=== PATIENT | female | born 1970 | race Two or more races ===

== ENCOUNTER 2025-03-29 03:24 | Inpatient (IN) | payer MEDICAID, SELFPAY ==
[2025-03-29] VITALS (15 sets, daily range): BP systolic 91–165; BP diastolic 59–97; PULSE 68–119; RESP 14–98; TEMP 36.4–38.7; O2SAT 91–98; BMI 63.6; BMI 45.8
--- NOTE | 2025-03-29 03:46 | EKG_ITS ---
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
--- NOTE | 2025-03-29 03:51 | XR_ITS ---
Examination: AP chest single view TECHNIQUE: AP portable semiupright chest single view Date and time: March 29, 2025, 0403 hours INDICATIONS: Sepsis alert and chest of chest pain FINDINGS: Right lower lobe pneumonia Normal heart size. Left lung clear IMPRESSION: Right lower lobe pneumonia
--- NOTE | 2025-03-29 03:54 | PD.EDADULT ---
ED General RME/HPI General Chief complaint: Chest Pain Stated complaint: chest pain Time Seen by Provider: 03/29/25 03:30 Arrival date/time: 03/29/25 03:24 Related Data Home Medications ?Medication ?Instructions ?Recorded ?Confirmed lisinopril 20 mg tablet 20 mg PO BID #0 tabs 03/17/15 04/03/19 aspirin 81 mg tablet,delayed 81 mg PO QDAY ##0 04/17/16 04/03/19 release (Aspir-) metformin 500 mg tablet 250 mg PO HS #0 tabs 04/17/16 04/03/19 (Glucophage) allopurinol 100 mg tablet 200 mg PO QDAY #0 tabs 08/12/16 04/03/19 (Zyloprim) imatinib 400 mg tablet (Gleevec) 400 mg PO QDAY #0 tabs 08/12/16 04/03/19 metoprolol tartrate 50 mg tablet 50 mg PO DAILY #0 tabs 08/12/16 04/03/19 ondansetron 4 mg disintegrating 4 mg PO Q8H PRN Nausea 04/02/19 04/03/19 tablet Previous Rx's ?Medication ?Instructions ?Recorded ibuprofen 600 mg tablet 600 mg PO Q6H #30 tabs 04/03/19 hydrocodone 5 mg-acetaminophen 325 1 tab PO Q6H PRN pain #7 tabs 12/21/ mg tablet Allergies Allergy/AdvReac Type Severity Reaction Status Date / Time curry peppers Allergy Mild rash to Uncoded 03/29/25 03:28 mouth Review of Systems Review of Systems Systems Reviewed: All systems reviewed, normal except as documented ED Exam Narrative Physical exam: Physical Exam GENERAL: NAD, AAOx3 HEENT: Moist mucosa. Eyes open, symmetrical, & clear CARDIO: Heart RRR, no obvious murmurs PULM: dyspnea, decreased BS on the right GI: Abdomen soft, nondistended, no pain on palpation. BSx4 SKIN/MSK/EXT: No wounds/rashes/edema/amputations, no pain on palpation. Pedal pulses present B/L NEURO: AAOx3, no focal neuro deficits, able to move all 4 extremities Course Quality Measures none Orders Category Date Time Status Bedside COVID-19 Antigen Test NOW Care 03/29/25 04:25 Active Bedside Influenza A&B Antigen Test NOW Care 03/29/25 04:25 Active Medical Insurance Collector STAT Care 03/29/25 03:49 Active Continuous Pulse Oximetry STAT Care 03/29/25 03:49 Completed EKG (ED ONLY) *Do not use* NOW Care 03/29/25 03:46 Completed Insert IV NOW Care 03/29/25 03:47 Active NPO STAT Care 03/29/25 03:49 Active Strict Intake and Output Routine Care 03/29/25 03:49 Ordered EKG (ED Only) Stat Exams 03/29/25 03:46 Draft XR chest 1V SEPSIS PROTOCOL Stat Exams 03/29/25 03:51 Taken B-Type Natriuretic Peptide Stat Lab 03/29/25 04:05 Completed Blood Culture (Lab) Stat Lab 03/29/25 03:49 Ordered CBC Stat Lab 03/29/25 04:05 Completed CRP [C-Reactive Protein] Stat Lab 03/29/25 04:24 Ordered Comprehensive Metabolic Panel Stat Lab 03/29/25 04:05 Completed Drug Screen,Urine Stat Lab 03/29/25 03:51 Ordered LDH (Lactate Dehydrogenase) Stat Lab 03/29/25 04:05 Completed Lactate (Lactic Acid) Stat Lab 03/29/25 04:05 Completed Lipase Stat Lab 03/29/25 04:05 Completed Magnesium Stat Lab 03/29/25 04:05 Completed Partial Thromboplastin Time Stat Lab 03/29/25 03:49 Ordered Phosphorous Stat Lab 03/29/25 04:05 Completed Procalcitonin Stat Lab 03/29/25 04:05 Completed Prothrombin Time with INR Stat Lab 03/29/25 03:49 Ordered RSV [Respiratory Syncytial Virus Ag] Stat Lab 03/29/25 04:25 Ordered Sed Rate (ESR) Stat Lab 03/29/25 04:05 Completed Strep A Rapid Stat Lab 03/29/25 04:25 Ordered Troponin I Stat Lab 03/29/25 04:05 Completed Urinalysis Stat Lab 03/29/25 03:49 Ordered Urine Culture Stat Lab 03/29/25 03:49 Ordered ACETAMINOPHEN w/COD 300-30 [Tylenol w/Cod #3] Med 03/29/25 04:23 Discontinued 2 tab PO X1 ONE Ketorolac Inj [Toradol Inj] Med 03/29/25 04:23 Discontinued 30 mg IVP X1 ONE Ondansetron Inj [Zofran Inj] Med 03/29/25 03:49 Active 4 mg IVP Q6HR PRN Ondansetron Inj [Zofran Inj] Med 03/29/25 04:23 Discontinued 4 mg IVP X1 ONE Piper/Tazo 3.375 gm Premix [Zosyn] Med 03/29/25 03:49 Discontinued 3.375 gm in 50 ml IV X1 Ringers Lactated 1000 ml [Lactated Ringers] 1,641 ml Med 03/29/25 03:49 Active IV 1,641 mls/hr Vancomycin Inj 2,000 mg Med 03/29/25 04:15 Active Sodium Chloride 0.9% 500 ml [Ns] 500 ml IV X1 Vancomycin Pharmacy to Dose Med 03/29/25 09:00 Pending 1 each IV QDAY Oxygen Delivery NOW RT 03/29/25 03:49 Active Vital Signs Vital signs: Vital Signs Temperature 101.7 F H 03/29/25 03:36 Pulse Rate 119 H 03/29/25 03:36 Respiratory Rate 18 03/29/25 03:36 Blood Pressure 138/81 H 03/29/25 03:36 Pulse Oximetry (%) 96 03/29/25 03:36 Oxygen Delivery Method Room Air 03/29/25 03:36 Discharge Plan Plan Patient Disposition: Admit Acute Care w/in Hospital Prescriptions/Referrals Prescriptions/Med Rec: No Action lisinopril 20 MG tablet 20 mg PO BID Qty: 0 metformin [Glucophage] 500 MG tablet 250 mg PO HS Qty: 0 aspirin [Aspir-81] 81 mg Tablet,Delayed Release (Dr/Ec) 81 mg PO QDAY Qty: 0 allopurinol [Zyloprim] 100 MG tablet 200 mg PO QDAY Qty: 0 imatinib [Gleevec] 400 MG tablet 400 mg PO QDAY Qty: 0 metoprolol tartrate 50 MG tablet 50 mg PO DAILY Qty: 0 ondansetron 4 mg Tablet,Disintegrating 4 mg PO Q8H PRN (Reason: Nausea) ibuprofen 600 mg tablet 600 mg PO Q6H Qty: 30 0RF hydrocodone-acetaminophen 5-325 mg tablet 1 tab PO Q6H MDD 3 PRN (Reason: pain) Qty: 7 0RF Referrals: Maricel Littlejohn PA-C [Primary Care Provider] - In 1 week Problem List Clinical Impression: Pneumonia, Sepsis Patient/Caregiver Discharge Instructions Print Language: Italian Stand Alone Forms: Shira Award Info., Patient Portal Info Letter MDM Narrative MDM hospital course: 54 y/o F with PMHx of HTN, pre-diabetes, CML on chemotherapy seen by Dr. Brock who presented to the ED due to chest pain. Patient states pain started around saturday but has progressively gotten worse. She describes the pain as 7-8/10 non radiating worsening when laying down and when taking deep breaths. She also endorses fevers and chills at home as well as diaphoresis. 0342: Sepsis Alert called, protocol initiated 0440: Labs reviewed: Leukocytoasis, RUDDY 0441: Spoke to IM team will accept the patient. Clinical Information Provided by patient Medical Records Reviewed None Medication Administration(s) Medication Administration History Lactated Ringer's (Lactated Ringers) 1,641 mls @ 1,641 mls/hr 30 ml/kg infuse over 60 min (1641 ml) IV .Q1H ONE Stop: 03/29/25 04:48 Vancomycin HCl 2,000 mg/ (Sodium Chloride) 500 mls @ 150 mls/hr IV X1 ONE Stop: 03/29/25 07:34 Ondansetron HCl (Ondansetron Inj 2 Mg/Ml Inj 2 Ml) 4 mg IVP Q6HR PRN PRN Reason: NAUSEA OR VOMITING Stop: 04/28/25 03:48 Pharmacy Consult (Vancomycin Pharmacy To Dose 1 Each Each) 1 each IV QDAY SUAD Stop: 04/28/25 08:59 Discontinued Medications Acetaminophen/Codeine Phosphate (Acetaminophen W/Cod 300-30 Tablet) 2 tab PO X1 ONE Stop: 03/29/25 04:24 Piperacillin/Tazobactam/Dextrose (Zosyn) 3.375 gm in 50 mls @ 100 mls/hr IV X1 ONE Stop: 03/29/25 04:18 Ketorolac Tromethamine (Ketorolac Inj 30 Mg/Ml Vial) 30 mg IVP X1 ONE Stop: 03/29/25 04:24 Ondansetron HCl (Ondansetron Inj 2 Mg/Ml Inj 2 Ml) 4 mg IVP X1 ONE; Protocol Stop: 03/29/25 04:24
[2025-03-29 04:09] LABS: Lactate (Lactic Acid) 1.0 mMol/L (0.4-2.0)
[2025-03-29 04:17] LABS: Basophils # (Auto) 0.1 Thou/mm3 (0.0-0.2); Basophils % (Auto) 0 % (0-2.5); Eosinophils # (Auto) 0.2 Thou/mm3 (0.0-0.5); Eosinophils % (Auto) 2 % (0-10); Hematocrit 31.9 % (36.0-46.0); Hemoglobin 10.8 g/dL (12.0-16.0); Immature Granulocytes Auto 0.07 Thou/mm3 (0.00-0.00); Lymphocytes # (Auto) 1.7 Thou/mm3 (1.0-4.8); Lymphocytes % (Auto) 14 % (10-50); Mean Corpuscular HGB Conc 33.9 g/dl (31.0-37.0); Mean Corpuscular Hemoglobin 31.0 pg (25.0-35.0); Mean Corpuscular Volume 92 fL (80-100); Monocytes # (Auto) 1.1 Thou/mm3 (0.0-0.8); Monocytes % (Auto) 9 % (0-12); Neutrophils # (Auto) 9.5 Thou/mm3 (1.8-7.7); Neutrophils % (Auto) 75 % (37-80); Nucleated Red Blood Cell # 0.00 Thou/mm3 (0.00-0.00); Nucleated Red Blood Cell % 0 /100 WBC (0); Platelet Count 225 Thou/mm3 (140-440); RDW Standard Deviation 46.7 fL (36.4-46.3); Red Blood Count 3.48 Miln/mm3 (4.00-5.20); White Blood Count 12.7 Thou/mm3 (3.6-11.0)
[2025-03-29 04:32] LABS: B-Type Natriuretic Peptide 36 pg/mL (0-100)
[2025-03-29 04:36] LABS: Sed Rate (ESR) 76 mm/hr (0-30)
[2025-03-29 04:39] LABS: Alanine Aminotransferase 18 U/L (10-49); Albumin, Serum 4.2 gm/dL (3.5-5.0); Albumin/Globulin Ratio 1.4 (1.2-2.2); Alkaline Phosphatase 104 U/L (46-116); Anion Gap 11 (7-16); Aspartate Amino Transferase 31 U/L (0-34); BUN/Creatinine Ratio 7 Ratio (12-20); Bilirubin,Total 1.0 mg/dL (0.3-1.2); Blood Urea Nitrogen 10 mg/dL (9-23); Calcium 9.0 mg/dL (8.3-10.6); Calcium (Corrected) 9.0 mg/dL (8.5-10.1); Carbon Dioxide 20.6 mMol/L (20.0-31.0); Chloride 106 mMol/L (98-107); Creatinine (Component) 1.4 mg/dL (0.6-1.3); Estimated Creatinine Clearance 72.5 mL/min (>60); Globulin 3.1 gm/dL (2.3-3.5); Glucose 141 mg/dL (74-106); LDH (Lactate Dehydrogenase) 339 U/L (120-246); Lipase 54 U/L (12-53); Magnesium 1.9 mg/dL (1.6-2.6); Osmolality,Calculated 276 (275-295); Phosphorous 2.1 mg/dL (2.4-5.1); Potassium 4.5 mMol/L (3.4-5.1); Sodium 138 mMol/L (136-145); Total Protein 7.3 gm/dL (5.7-8.2); Troponin I < 0.020 ng/mL (0.0-0.045); eGFR 45 See Note
--- NOTE | 2025-03-29 04:39 | PC.NURSE ---
IN AND OUT CATH NOT NEEDED PT ABLE TO URINATE ON OWN
[2025-03-29 04:40] LABS: Procalcitonin 0.04 ng/ml (0.0-0.49)
[2025-03-29] MEDS: ACETAMINOPHEN w/COD 300-30 TABLET 2 TAB PO (04:47)
[2025-03-29] MEDS: ONDANSETRON INJ 2 MG/ML INJ 2 ML 4 MG IVP ×2 (04:47→16:16)
[2025-03-29 04:48] LABS: Collection Type, Urine Clean Catch
[2025-03-29] MEDS: KETOROLAC INJ 30 MG/ML VIAL IVP (04:48)
[2025-03-29] MEDS: PIPER/TAZO 3.375 GM PREMIX 3.375 GM/50 ML BAG IV (04:48)
[2025-03-29] MEDS: RINGERS LACTATED 1000 ML 1,641 ML 1641 ML IV (04:49)
[2025-03-29 04:52] LABS: Bacteria,Urine Rare; Bilirubin,Urine Negative (Negative); Blood,Urine Negative (Negative); Clarity,Urine Clear (Clear/Hazy); Color,Urine Lt-Yellow (Lt Yel-Yel); Glucose, Urine Negative (Negative); Ketones,Urine Trace (Negative); Leukocyte Esterase,Urine Negative (Negative); Nitrite,Urine Negative (Negative); PH,Urine 6.0 (5.0-7.0); Protein,Urine Trace (Neg - Trace); RBC,Urine 3 /hpf (0-3); Specific Gravity,Urine 1.016 (1.001-1.035); Squamous Epithelial Cell,Urine 3 /hpf (0-5); Urobilinogen,Urine Negative mg/dL (0.0-1.0); WBC,Urine 1 /hpf (0-5)
[2025-03-29 04:58] LABS: Amphetamine/Methamp Scrn,U Negative (Negative); Barbiturate Screen,Urine Negative (Negative); Benzodiazepines Screen,Urine Negative (Negative); Benzoylecgonine Screen, Ur Negative (Negative); Fentanyl Screen,Urine Negative (Negative); Opiate Screen,Urine Negative (Negative); THC Screen,Urine Negative (Negative)
[2025-03-29 05:03] LABS: INR 1.0 (0.9-1.3); Partial Thromboplastin Time 29.6 Seconds (22.0-36.0); Prothrombin Time 10.7 Seconds (9.0-12.2)
--- NOTE | 2025-03-29 05:09 | PD.RESHP ---
Documentation for date of: 03/29/25 HPI History of Present Illness Chief complaint: Chest pain History of present illness: 54-year-old female with past medical history of CML diagnosed in 2013, followed by Dr. Brock, hypertension, nni-myumffl-hufgspodw type 2 diabetes presenting to the ED on 03/29 with chest pain which has been ongoing since Tuesday 03/27. Patient denies having any sick contacts and states that the chest pain is like a substernal pressure-like sensation which does not radiate anywhere and is worsened with deep inspiration. Patient has also been having poor p.o. intake secondary to suppressed appetite. Patient continues to be on daily imatinib 400 mg for CML which appears to be well-controlled; moreover, she had an appointment in February to follow-up in March scheduled. Patient's daughter is bedside and corroborated her story. Medical history: As stated above Surgical history: Denies Allergies: Curry peppers causes rash Medications: Pending official med rec Family history: Noncontributory Social history: Patient does not work currently, took some classes at [employer], lives at home with , 2 daughters, denies tobacco or illicit drug use, social alcohol use ROS: All 12 systems assessed and the patient denies unless otherwise stated in HPI In the ED, patient presented hypertensive 138/81, tachycardic 119, respiratory 18, febrile 101.7 but satting 96 on room air. Pertinent lab findings include a WBC of 12.7, hemoglobin 10.8 with MCV of 92, ESR 76, creatinine 1.4, BUN 10, lactic acid 1.0, phosphorus 2.1, magnesium 1.9, LDH 339, troponin less than 0.030, BNP of 36, lipase 54. Urinalysis shows no signs of infection and U tox is negative. Chest x-ray is pending read but there appears to be a right-sided pneumonia, EKG shows sinus tachycardia without any concerning ST changes. Patient will be admitted for community-acquired pneumonia, treated with IV antibiotics. Exam Vital Signs Temp Pulse Resp BP Pulse Ox O2 Del Method 101.7 F H 110 H 23 H 138/81 H 96 Room Air 03/29/25 03:36 03/29/25 04:04 03/29/25 04:04 03/29/25 03:36 03/29/25 03:36 03/29/25 03:36 Narrative Exam Physical Exam: GENERAL: Awake, answering questions appropriately, obese HEENT: NC/AT. Moist mucosa. PERRLA/EOMI. CARDIO: Heart RRR, no obvious murmurs, no JVD. PULM: No coughing or visible SOB. Lungs CTA B/L. GI: Abdomen soft, NT/ND, +BS. SKIN/MSK/EXT: No wounds/discoloration/rashes/edema/amputations noted. +Pedal pulses present B/L. NEURO: Oriented x3, Moves extremities x4, no focal neurologic deficits Results: Labs 03/29/25 04:05 03/29/25 04:05 Labs: Short CBC 03/29/25 Range/Units 04:05 WBC 12.7 H (3.6-11.0) Thou/mm3 Hgb 10.8 L (12.0-16.0) g/dL Hct 31.9 L (36.0-46.0) % Plt Count 225 (140-440) Thou/mm3 BMP 03/29/25 04:05 Sodium 138 Potassium 4.5 Chloride 106 Carbon Dioxide 20.6 BUN 10 Creatinine 1.4 H Glucose 141 H Calcium 9.0 Cardiac Enzymes 03/29/25 Range/Units 04:05 Troponin I < 0.020 (0.0-0.045) ng/mL Liver Function 03/29/25 Range/Units 04:05 Total Bilirubin 1.0 (0.3-1.2) mg/dL AST 31 (0-34) U/L ALT 18 (10-49) U/L Alkaline Phosphatase 104 (46-116) U/L Albumin 4.2 (3.5-5.0) gm/dL Urine 03/29/25 Range/Units 04:22 Urine Color Lt-Yellow (Lt Yel-Yel) Urine Clarity Clear (Clear/Hazy) Urine pH 6.0 (5.0-7.0) Ur Specific [place] 1.016 (1.001-1.035) Urine Protein Trace (Neg - Trace) Urine Glucose (UA) Negative (Negative) Quality Measures Quality Measures none Medications Home Medications and Allergies Home Medications ?Medication ?Instructions ?Recorded ?Confirmed ?Type lisinopril 20 mg tablet 20 mg PO BID #0 tabs 03/17/15 04/03/19 History aspirin 81 mg tablet,delayed 81 mg PO QDAY ##0 04/17/16 04/03/19 History release (Aspir-) metformin 500 mg tablet 250 mg PO HS #0 tabs 04/17/16 04/03/19 History (Glucophage) allopurinol 100 mg tablet 200 mg PO QDAY #0 tabs 08/12/16 04/03/19 History (Zyloprim) imatinib 400 mg tablet (Gleevec) 400 mg PO QDAY #0 tabs 08/12/16 04/03/19 History metoprolol tartrate 50 mg tablet 50 mg PO DAILY #0 tabs 08/12/16 04/03/19 History ondansetron 4 mg disintegrating 4 mg PO Q8H PRN Nausea 04/02/19 04/03/19 History tablet Allergies Allergy/AdvReac Type Severity Reaction Status Date / Time curry peppers Allergy Mild rash to Uncoded 03/29/25 03:28 mouth Visit Medications Acetaminophen (Acetaminophen 325 Mg Tablet) 650 mg PO Q6H PRN PRN Reason: Pain 1-3 and/or Fever >100.1 Stop: 04/28/25 05:00 Hydrocodone Bitart/Acetaminophen (Hydrocodone/Apap 10/325 Tab) 1 tab PO Q4H PRN PRN Reason: PAIN SCALE 4-6 (Moderate Stop: 04/03/25 05:00 Heparin Sodium (Porcine) (Heparin Sod Inj 5000 Unit/Ml Vial) 5,000 unit SC Q12HR [facility] Stop: 04/12/25 08:59 Vancomycin HCl 2,000 mg/ (Sodium Chloride) 500 mls @ 150 mls/hr IV X1 ONE Stop: 03/29/25 07:34 Sodium Chloride (Ns) 500 mls @ 75 mls/hr IV .Q6H40M ONE Stop: 03/29/25 11:44 Imatinib Mesylate (Imatinib Mesylate 100 Mg Tablet) 400 mg PO QDAY [facility] Stop: 04/28/25 08:59 Morphine Sulfate (Morphine Sulf Inj 10 Mg/Ml Vial) 2 mg IVP Q4H PRN PRN Reason: PAIN SCALE 7-10 (Severe Stop: 04/03/25 05:00 Ondansetron HCl (Ondansetron Inj 2 Mg/Ml Inj 2 Ml) 4 mg IVP Q6HR PRN PRN Reason: NAUSEA OR VOMITING Stop: 04/28/25 03:48 Pharmacy Consult (Vancomycin Pharmacy To Dose 1 Each Each) 1 each IV QDAY [facility] Stop: 04/28/25 08:59 Discontinued Medications Acetaminophen/Codeine Phosphate (Acetaminophen W/Cod 300-30 Tablet) 2 tab PO X1 ONE Stop: 03/29/25 04:24 Last Admin: 03/29/25 04:47 Dose: 2 tab Lactated Ringer's (Lactated Ringers) 1,641 mls @ 1,641 mls/hr 30 ml/kg infuse over 60 min (1641 ml) IV .Q1H ONE Stop: 03/29/25 04:48 Last Admin: 03/29/25 04:49 Dose: 1,641 mls/hr Piperacillin/Tazobactam/Dextrose (Zosyn) 3.375 gm in 50 mls @ 100 mls/hr IV X1 ONE Stop: 03/29/25 04:18 Last Admin: 03/29/25 04:48 Dose: 100 mls/hr Ketorolac Tromethamine (Ketorolac Inj 30 Mg/Ml Vial) 30 mg IVP X1 ONE Stop: 03/29/25 04:24 Last Admin: 03/29/25 04:48 Dose: 30 mg Ondansetron HCl (Ondansetron Inj 2 Mg/Ml Inj 2 Ml) 4 mg IVP X1 ONE; Protocol Stop: 03/29/25 04:24 Last Admin: 03/29/25 04:47 Dose: 4 mg Potassium Phos/Sodium Phos (Naph,[facility] Mbdb 1 Packet (1.5 Gm)) 1 packet PO X1 ONE Stop: 03/29/25 05:08 Assessment & Plan Plan 54-year-old female with past medical history of CML diagnosed in 2013, followed by Dr. Brock, hypertension, ugn-sudesgy-qluilcill type 2 diabetes presenting to the ED on 03/29 with chest pain will be admitted for community-acquired pneumonia, treated with IV antibiotics. Sepsis due to [] with acute sepsis-related organ dysfunction as evidence by below and RUDDY (endorgan dysfunction). #Sepsis secondary to #Community-acquired pneumonia As per HPI, patient presenting with 2 days of chest pain likely pleuritic On examination, patient has clear lung sounds but present with serous bacteria (tachycardia, febrile, tachypnea) Pertinent findings include WBC 12.7 Chest x-ray shows right-sided pneumonia COVID and influenza negative Plan: Continue IV Zosyn 4.5 g Q6 Blood cultures pending Consider obtaining sputum cultures Pending RSV #RUDDY Presenting with creatinine of 1.4 and BUN of 10, EGFR of 45 Likely secondary to poor p.o. intake and acutely ill status Plan: Maintenance IV fluid with normal saline at 75 cc an hour 500 cc bag Avoid nephrotoxic agent Renally dose medications when appropriate Follow-up in morning labs community-acquired pneumonia #CML As noted above, patient was diagnosed in [address] Brock Has an appointment in March Plan: Continue patient's imatinib for 400 mg p.o. daily #Hypertension #Spp-hdyukhx-xjljnliva type 2 diabetes Chronic medical conditions Pending official med rec Plan: Restart home antihypertensives when appropriate Sliding scale insulin Health Maintenance: Lines: Line Diet: Cardiac Bowel: Senna prn GI prophylaxis: Not needed DVT prophylaxis: Heparin subcu Dispo: IV antibiotics for And maintenance IV fluids for RUDDY Code: Full Patient seen and examined with attending Dr. Isabella Duckworth, DO PGY-2 Internal Medicine - GME Attending Provider Attestation/Addendum I have examined the patient, reviewed labs and imaging findings, discussed the case with the resident(s), and reviewed entered orders. I agree with the plan of care as outlined in this note, with these additional summaries/recommendations: After examination of the patient and review of the clinical data, I feel that this patient needs admission to the hospital for further treatment and evaluation. Patient is a 54-year-old female with a medical history of morbid obesity, diabetes mellitus type 2, primary hypertension, and CML followed by Dr. Brock presents to [facility] emergency department on 03/29/2025 with chest pain, cough, and fever/chills. Patient diagnosed with sepsis most likely secondary to bacterial pneumonia. qSOFA 0 points indicating not high risk for inpatient mortality. 3 out of 4 SIRS criteria positive with body temp greater than 38 ?C, heart rate greater than 90, and WBC count greater than 12. Labs notable for WBC 12.7 with CXR showing infiltrate. Evidence of endorgan damage with acute kidney injury. Patient meets criteria for sepsis with most likely source pulmonary. Daily CBC, follow-up blood cultures plus urine culture. COVID and flu negative. Start IV antibiotics to include coverage for Pseudomonas. Status post 30 cc/kg fluid resuscitation. No need for pressors or source control at this time. Acute kidney injury present with creatinine 1.4 and BUN 10 on admission. Most likely secondary to prerenal azotemia in the setting of sepsis. Continue IV fluids, avoid nephrotoxic agents, and renally dose medications. Repeat level in AM. Mild hypophosphatemia repeat phosphorus in AM. Patient has CML and currently following Dr. Brock. Patient is on daily Gleevec which we will continue as CML appears well-controlled. If patient becomes leukopenic/neutropenic then recommend holding Gleevec and obtaining oncology consultation. Resume home antihypertensives as tolerated. Tylenol as needed for fever. Patient and daughter updated on the plan and in agreement. All questions answered to satisfaction. Please see residents note for additional details and management. Dr. Isabella MD
[2025-03-29] MEDS: Vancomycin Inj 2,000 MG in SODIUM CHLORIDE 0.9% 500 ML 500 ML 150 MG IV (05:52)
[2025-03-29] MEDS: SODIUM CHLORIDE 0.9% 500 ML 500 ML 75 ML IV (06:16)
[2025-03-29] MEDS: Magnesium Sulfate 4 GM Ivpb 4 GM/50 ML BAG IV (06:16)
[2025-03-29 07:03] LABS: Respiratory Syncytial Virus Ag Negative (Negative); Strep A Rapid Negative (Negative)
--- NOTE | 2025-03-29 07:37 | PC.NURSE ---
Received report from Maria Fernanda JOLLEY and assumed care of patient. Patient laying in bed with daughter at bedside. States having intermittent chest spasms 05/02. Awaiting admission bed.
[2025-03-29 07:43] LABS: C-Reactive Protein 8.7 mg/dL (0.0-0.9)
[2025-03-29] MEDS: MORPHINE SULF INJ 10 MG/ML VIAL 2 MG IVP ×3 (07:58→16:10)
[2025-03-29] MEDS: NAPH,KPH MBDB 1 PACKET (1.5 GM) PO (08:45)
[2025-03-29] MEDS: HEPARIN SOD INJ 5000 UNIT/ML VIAL SC ×2 (12:54→22:00)
[2025-03-29] MEDS: ACETAMINOPHEN 325 MG TABLET 650 MG PO (16:17)
--- NOTE | 2025-03-29 17:11 | ESPR_ITS ---
Documentation for date of: 03/29/25 Subjective Subjective Interval history: No acute events overnight pt admitted by night team for right lower lobe PNA pt satting well on RA Exam Vital Signs Temp Pulse Resp BP Pulse Ox O2 Del Method 100.7 F H 104 H 20 165/96 H 95 Room Air 03/29/25 16:33 03/29/25 16:33 03/29/25 16:33 03/29/25 16:33 03/29/25 16:33 03/29/25 16:33 Vitals over the past 24hours were reviewed: Temp: Afebrile HR: 100s BP: elevated, 90s-160s/50s-90s: RR: satting well on RA Narrative Exam GENERAL: no acute distress, AAO x3,sitting up in bed. HEENT: Head AT/ NC. CARDIOVASCULAR: Tachycardic, regular rhythm . Normal S1/S2, No m/r/g. trace edema of bilateral LEs. RESPIRATORY: Right lower lung loaiza, end expiratory wheezing. left lung loaiza clear to auscultation GASTROINTESTINAL: Abdomen soft, non tender no palpable masses. Bowel sounds present, no suprapubic tenderness MUSCULOSKELETAL:? No cyanosis or edema, no visible joint swelling. NEUROLOGICAL: CN II-XII grossly intact. No focal deficits. moving 4 extremities PSYCHIATRIC: Awake and alert, not agitated, normal mood and affect. SKIN: No obvious rashes, no jaundice, normal turgor. Objective Labs 03/30/25 04:54 03/30/25 04:54 Labs: Laboratory Results - last 24 hr 03/29/25 03/29/25 03/29/25 04:05 04:14 04:22 WBC 12.7 H RBC 3.48 L Hgb 10.8 L Hct 31.9 L MCV 92 MCH 31.0 MCHC 33.9 RDW Std Deviation 46.7 H Plt Count 225 Neut % (Auto) 75 Lymph % (Auto) 14 [place] % (Auto) 9 Eos % (Auto) 2 Baso % (Auto) 0 Neut # (Auto) 9.5 H Lymph # (Auto) 1.7 [place] # (Auto) 1.1 H Eos # (Auto) 0.2 Baso # (Auto) 0.1 Immature Gran # (Auto) 0.07 H Absolute Nucleated RBC 0.00 Immature Gran % 1 H Nucleated RBC % 0 ESR 76 H PT 10.7 INR 1.0 APTT 29.6 Sodium 138 Potassium 4.5 Chloride 106 Carbon Dioxide 20.6 Anion Gap 11 BUN 10 Creatinine 1.4 H Estim Creat Clear Calc 72.5 eGFR 45 L BUN/Creatinine Ratio 7 L Glucose 141 H Calculated Osmolality 276 Lactic Acid 1.0 Calcium 9.0 Corrected Calcium 9.0 Phosphorus 2.1 L Magnesium 1.9 Total Bilirubin 1.0 AST 31 ALT 18 Alkaline Phosphatase 104 Lactate Dehydrogenase 339 H Troponin I < 0.020 C-Reactive Prot, Quant 8.7 H B-Natriuretic Peptide 36 Total Protein 7.3 Albumin 4.2 Globulin 3.1 Albumin/Globulin Ratio 1.4 Lipase 54 H Procalcitonin 0.04 Ur Collection Type Clean Catch Urine Color Lt-Yellow Urine Clarity Clear Urine pH 6.0 Ur Specific [place] 1.016 Urine Protein Trace Urine Glucose (UA) Negative Urine Ketones Trace Urine Blood Negative Urine Nitrite Negative Urine Bilirubin Negative Urine Urobilinogen (Auto) Negative Ur Leukocyte Esterase Negative Urine RBC 3 Urine WBC 1 Ur Squamous Epith Cells 3 Urine Bacteria Rare Urine Opiates Screen Negative Urine Fentanyl Screen Negative Ur Barbiturates Screen Negative U Amphetamin/Meth Scrn Negative U Benzodiazepines Scrn Negative U Cocaine Metab Screen Negative U Marijuana (THC) Screen Negative RSV Rapid Group A Strep Rapid 03/29/25 06:15 WBC RBC Hgb Hct MCV MCH MCHC RDW Std Deviation Plt Count Neut % (Auto) Lymph % (Auto) [place] % (Auto) Eos % (Auto) Baso % (Auto) Neut # (Auto) Lymph # (Auto) [place] # (Auto) Eos # (Auto) Baso # (Auto) Immature Gran # (Auto) Absolute Nucleated RBC Immature Gran % Nucleated RBC % ESR PT INR APTT Sodium Potassium Chloride Carbon Dioxide Anion Gap BUN Creatinine Estim Creat Clear Calc eGFR BUN/Creatinine Ratio Glucose Calculated Osmolality Lactic Acid Calcium Corrected Calcium Phosphorus Magnesium Total Bilirubin AST ALT Alkaline Phosphatase Lactate Dehydrogenase Troponin I C-Reactive Prot, Quant B-Natriuretic Peptide Total Protein Albumin Globulin Albumin/Globulin Ratio Lipase Procalcitonin Ur Collection Type Urine Color Urine Clarity Urine pH Ur Specific [place] Urine Protein Urine Glucose (UA) Urine Ketones Urine Blood Urine Nitrite Urine Bilirubin Urine Urobilinogen (Auto) Ur Leukocyte Esterase Urine RBC Urine WBC Ur Squamous Epith Cells Urine Bacteria Urine Opiates Screen Urine Fentanyl Screen Ur Barbiturates Screen U Amphetamin/Meth Scrn U Benzodiazepines Scrn U Cocaine Metab Screen U Marijuana (THC) Screen RSV Rapid Negative Group A Strep Rapid Negative Quality Measures Quality Measures none Assessment & Plan Assessment Current Active Medications: Generic Name Dose Route Start Last Admin Trade Name Freq PRN Reason Stop Dose Admin Acetaminophen 650 mg 03/29/25 05:01 03/29/25 16:17 Acetaminophen 325 Mg Tablet PO 04/28/25 05:00 650 mg Q6H PRN Administration Pain 1-3 and/or Fever >100.1 Hydrocodone Bitart/Acetaminophen 1 tab 03/29/25 05:01 Hydrocodone/Apap 10/325 Tab PO 04/03/25 05:00 Q4H PRN PAIN SCALE 4-6 (Moderate Heparin Sodium (Porcine) 5,000 unit 03/29/25 09:00 03/29/25 12:54 Heparin Sod Inj 5000 Unit/Ml Vial SC 04/12/25 08:59 5,000 unit Q12HR SUAD Administration Levofloxacin 750 mg 03/30/25 09:00 Levofloxacin 250 Mg Tablet PO 04/06/25 08:59 DAILY SUAD Morphine Sulfate 2 mg 03/29/25 05:01 03/29/25 16:10 Morphine Sulf Inj 10 Mg/Ml Vial IVP 04/03/25 05:00 2 mg Q4H PRN Administration PAIN SCALE 7-10 (Severe Ondansetron HCl 4 mg 03/29/25 03:49 03/29/25 16:16 Ondansetron Inj 2 Mg/Ml Inj 2 Ml IVP 04/28/25 03:48 4 mg Q6HR PRN Administration NAUSEA OR VOMITING Pharmacy Consult 1 each 03/29/25 09:00 Vancomycin Pharmacy To Dose 1 Each Each IV 04/28/25 08:59 QDAY PRN consult Plan 54-year-old female with 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 Brock) hypertension, [id number] type 2 diabetes presenting to the ED on 03/29 with chest pain will be admitted for community-acquired pneumonia, continue vanc pending BCx, and transitioned from zosyn to levoflox for atypicals coverage. #Sepsis secondary to #Community-acquired pneumonia #Leukocytosis SIRS Criteria 4 points As per HPI, patient presenting with 2 days of chest pain likely pleuritic On examination,(tachycardia, febrile, tachypnea) Pertinent findings include WBC 12.7. pt with nonproductive cough, no sputum cultures indicated at present Dx - Chest x-ray shows: right-sided pneumonia - Bcx Follow up - Group A Strep negative - RSV negative - COVID and influenza negative Tx - Continue vanc pending Bcx results - START levoflox 750 mg PO qd #RUDDY: evidence of end organ damage Ddx: consider pre vs intra vs post renal, favor prerenal given poor po intake and sepsis Presenting with creatinine of 1.4 (up from 1.1) and BUN of 10, EGFR of 45 Tx - Maintenance IV fluid with LR at 75ml/hr 2 bag max - Avoid nephrotoxic agent - HOLDING home Lisinopril 20 mg BID given current RUDDY and concern for worsening PNA and cough - Renally dose medications when appropriate #CML As noted above, patient was diagnosed in [address] Brock Has an appointment in March Plan: HOLDING patient's imatinib for 400 mg p.o. daily iso PNA infxn and concern for further immunosuppression Chronic medical conditions #Hypertension #[id number] type 2 diabetes Pending official med rec Tx - HOLDING home lisinopril 20 mg PO BID - Sliding scale insulin Health Maintenance: Dispo: IV antibiotics for And maintenance IV fluids for RUDDY, pending Bcx Lines: LR 75 ml/hr Diet: Cardiac Bowel: Senna prn GI prophylaxis: Not needed DVT prophylaxis: Heparin subcu Code: Full Case discussed with my attending Dr. Juan Carlos Ocampo MD PGY-1 Attending Provider Attestation/Addendum Rob, Nadya Rangel DO, attest that I was physically present for the moffett portions of the service and evaluated the patient with the resident and I reviewed and discussed the case with the resident and agree with the resident's findings and plans of care as documented above Patient seen and evaluated this AM. Patient remains in the ED and states she is doing well. She is on 2L/NC and reports chest pain with deep inspiration. Patient had fevers on presentation. Will hold imatinib in the setting of acute infection. Mild RUDDY noted, will continue with IV abx. Will cover for MRSA with vancomycin and Atypical and gram negative bacteria with levofloxacin. Will f/u with blood and urine cultures
[2025-03-29] MEDS: RINGERS LACTATED 1000 ML 1,000 ML 75 ML IV (18:44)
[2025-03-29] MEDS: ACETAMINOPHEN 500 MG TABLET 1000 MG PO (21:56)
[2025-03-30] VITALS (14 sets, daily range): BP systolic 99–173; BP diastolic 65–80; PULSE 87–115; RESP 17–97; TEMP 36.7–38; O2SAT 94–98
[2025-03-30 06:17] LABS: Basophils # (Auto) 0.0 Thou/mm3 (0.0-0.2); Basophils % (Auto) 0 % (0-2.5); Eosinophils # (Auto) 0.4 Thou/mm3 (0.0-0.5); Eosinophils % (Auto) 4 % (0-10); Hematocrit 30.3 % (36.0-46.0); Hemoglobin 9.6 g/dL (12.0-16.0); Immature Granulocytes Auto 0.05 Thou/mm3 (0.00-0.00); Lymphocytes # (Auto) 1.1 Thou/mm3 (1.0-4.8); Lymphocytes % (Auto) 10 % (10-50); Mean Corpuscular HGB Conc 31.7 g/dl (31.0-37.0); Mean Corpuscular Hemoglobin 30.8 pg (25.0-35.0); Mean Corpuscular Volume 97 fL (80-100); Monocytes # (Auto) 1.4 Thou/mm3 (0.0-0.8); Monocytes % (Auto) 12 % (0-12); Neutrophils # (Auto) 8.2 Thou/mm3 (1.8-7.7); Neutrophils % (Auto) 74 % (37-80); Nucleated Red Blood Cell # 0.00 Thou/mm3 (0.00-0.00); Nucleated Red Blood Cell % 0 /100 WBC (0); Platelet Count 184 Thou/mm3 (140-440); RDW Standard Deviation 50.2 fL (36.4-46.3); Red Blood Count 3.12 Miln/mm3 (4.00-5.20); White Blood Count 11.1 Thou/mm3 (3.6-11.0)
[2025-03-30 06:49] LABS: Glucose Estimated Average 103 mg/dL (80-131); Hemoglobin A1C 5.2 % Hgb (4.8-6.0)
[2025-03-30 06:52] LABS: Alanine Aminotransferase 13 U/L (10-49); Albumin, Serum 3.5 gm/dL (3.5-5.0); Albumin/Globulin Ratio 1.3 (1.2-2.2); Alkaline Phosphatase 90 U/L (46-116); Anion Gap 9 (7-16); Aspartate Amino Transferase 18 U/L (0-34); BUN/Creatinine Ratio 9 Ratio (12-20); Bilirubin,Total 0.9 mg/dL (0.3-1.2); Blood Urea Nitrogen 13 mg/dL (9-23); Calcium 8.3 mg/dL (8.3-10.6); Calcium (Corrected) 8.7 mg/dL (8.5-10.1); Carbon Dioxide 25.5 mMol/L (20.0-31.0); Cardiac Risk Estimate 3.0 RATIO (3.7-5.6); Chloride 107 mMol/L (98-107); Cholesterol 82 mg/dL (132-200); Creatinine (Component) 1.4 mg/dL (0.6-1.3); Estimated Creatinine Clearance 58.9 mL/min (>60); Globulin 2.8 gm/dL (2.3-3.5); Glucose 118 mg/dL (74-106); HDL Cholesterol 27 mg/dL (40-60); LDL Cholesterol,Calculated 35 mg/dL (0-130); Magnesium 2.2 mg/dL (1.6-2.6); Osmolality,Calculated 282 (275-295); Phosphorous 3.7 mg/dL (2.4-5.1); Potassium 4.4 mMol/L (3.4-5.1); Sodium 141 mMol/L (136-145); Total Protein 6.3 gm/dL (5.7-8.2); Triglycerides 102 mg/dL (30-150); eGFR 45 See Note
[2025-03-30] MEDS: ACETAMINOPHEN 325 MG TABLET 650 MG PO ×2 (07:22→18:58)
[2025-03-30] MEDS: LEVOFLOXACIN 250 MG TABLET 750 MG PO (08:18)
[2025-03-30] MEDS: HEPARIN SOD INJ 5000 UNIT/ML VIAL SC ×2 (08:18→20:47)
[2025-03-30] MEDS: METOPROLOL SUCCINATE XL 25 MG TABCR 100 MG PO (09:28)
[2025-03-30] MEDS: VANCOMYCIN/NS 1 GM IVPB 200 ML IV (09:29)
--- NOTE | 2025-03-30 10:56 | PC.SS ---
Patient Rosanna Wisdom is a 54 Year old female admitted for Community-Acquired PNA. Patient reports she lives at home with family. Patient reports her , Ralph Fuentes is surrogate decision maker, [phone]. Patient reports she is able to complete all ADL's independently. Patient does not utilizes a cane to assist with ambulation. Choice of pharmacy is [facility]-Pharmacy. PCP is Maricel Littlejohn. At time of discharge patient will return back home. Next of Kin, Ralph Taylor Discharge Plan: Home
--- NOTE | 2025-03-30 11:09 | EKG_ITS ---
[facility] Test Date: 2025-03-30 Pat Name: FRIDA TYLER Department: Room: S371A Gender: Female Car Dumper: JIA : [id number] Requested By: Jaycee Ocampo Order Number: [id number] Reading MD: Jaycee Ocampo Measurements Intervals [place] Rate: 86 P: 48 VT: 168 QRS: -9 QRSD: 84 T: 18 QT: 356 QTc: 428 Interpretive Statements SINUS RHYTHM LOW QRS VOLTAGE IN PRECORDIAL LEADS POSSIBLE ANTERIOR MYOCARDIAL INFARCTION , OF INDETERMINATE AGE Compared to ECG 03/29/2025 04:26:42 Sinus tachycardia no longer present Myocardial infarct finding still present /store/S0/[id number]/[id number].pdf
--- NOTE | 2025-03-30 11:12 | ESPR_ITS ---
<Statement entered by Hill Vieira MD - 03/30/25 17:19> Patient seen and examined at bedside, no acute overnight events. I discussed and supervised with the general internist and physician leader physician who took care of this patient. I personally saw and examined the patient. I agree with most of the assessment and plan. Patient reports subjective worsening of symptoms, including pleuritic chest pain and general malaise. Patient given IS and lidocaine patch. Tx with IVF, vanc, and levoquin. Holding lisinopril due to RUDDY. Increased IVF LR to 100 ml/hr due to continued RUDDY. Plan of care discussed with attending Dr. Rangel. Hill Vieira MD PGY-2 Documentation for date of: 03/30/25 Subjective Subjective Interval history: febrile overnight to 100.6, got APAP pt reports chest pain worse with inspiration with ice pack on chest pt reports decreased appetite Exam Vital Signs Temp Pulse Resp BP Pulse Ox O2 Del Method O2 Flow Rate 99.0 F 109 H 20 173/80 H 98 Nasal Cannula 1 03/30/25 08:17 03/30/25 09:28 03/30/25 07:54 03/30/25 09:28 03/30/25 07:54 03/30/25 07:54 03/30/25 07:54 Vitals over the past 24hours were reviewed: Temp: febrile overnight s/p apap HR: tachycardic 100s BP: wnl RR: satting well on 1L NC Narrative Exam GENERAL:moderate discomfort, AAO x3, laying in bed with icepack on chest . HEENT: Head AT/ NC. CARDIOVASCULAR: Tachycardic, regular rhythm . Normal S1/S2, No m/r/g. trace edema of bilateral LEs. RESPIRATORY: Right lower lung loaiza, end expiratory wheezing. left lung loaiza clear to auscultation, breaths are shallow given her chest pain on inspiration GASTROINTESTINAL: Abdomen soft, non tender no palpable masses. Bowel sounds present, no suprapubic tenderness MUSCULOSKELETAL:? No cyanosis or edema, no visible joint swelling. NEUROLOGICAL: CN II-XII grossly intact. No focal deficits. moving 4 extremities PSYCHIATRIC: Awake and alert, not agitated, normal mood and affect. SKIN: No obvious rashes, no jaundice, normal turgor. Objective Labs 03/31/25 05:04 03/31/25 05:04 Labs: Laboratory Results - last 24 hr 03/30/25 04:54 WBC 11.1 H RBC 3.12 L Hgb 9.6 L Hct 30.3 L MCV 97 MCH 30.8 MCHC 31.7 RDW Std Deviation 50.2 H Plt Count 184 D Neut % (Auto) 74 Lymph % (Auto) 10 [place] % (Auto) 12 Eos % (Auto) 4 Baso % (Auto) 0 Neut # (Auto) 8.2 H Lymph # (Auto) 1.1 [place] # (Auto) 1.4 H Eos # (Auto) 0.4 Baso # (Auto) 0.0 Immature Gran # (Auto) 0.05 H Absolute Nucleated RBC 0.00 Immature Gran % 1 H Nucleated RBC % 0 Sodium 141 Potassium 4.4 Chloride 107 Carbon Dioxide 25.5 Anion Gap 9 BUN 13 Creatinine 1.4 H Estim Creat Clear Calc 58.9 L eGFR 45 L BUN/Creatinine Ratio 9 L Glucose [address] Glu mg/dL 103 Hemoglobin A1c 5.2 Calculated Osmolality 282 Calcium 8.3 Corrected Calcium 8.7 Phosphorus 3.7 Magnesium 2.2 Total Bilirubin 0.9 AST 18 ALT 13 Alkaline Phosphatase 90 Total Protein 6.3 Albumin 3.5 D Globulin 2.8 Albumin/Globulin Ratio 1.3 Triglycerides 102 Cholesterol 82 L LDL Cholesterol, Calc 35 HDL Cholesterol 27 L Cholesterol/HDL Ratio 3.0 L Quality Measures Quality Measures none Assessment & Plan Assessment Current Active Medications: Generic Name Dose Route Start Last Admin Trade Name Norrisq PRN Reason Stop Dose Admin Acetaminophen 650 mg 03/29/25 05:01 03/30/25 07:22 Acetaminophen 325 Mg Tablet PO 04/28/25 05:00 650 mg Q6H PRN Administration Pain 1-3 and/or Fever >100.1 Hydrocodone Bitart/Acetaminophen 1 tab 03/29/25 05:01 03/30/25 07:22 Hydrocodone/Apap 10/325 Tab PO 04/03/25 05:00 1 tab Q4H PRN Administration PAIN SCALE 4-6 (Moderate Heparin Sodium (Porcine) 5,000 unit 03/29/25 09:00 03/30/25 08:18 Heparin Sod Inj 5000 Unit/Ml Vial SC 04/12/25 08:59 5,000 unit Q12HR SUAD Administration Vancomycin/Sodium Chloride 200 mls @ 120 mls/hr 03/30/25 10:00 03/30/25 09:29 Vancomycin/Ns 1 Gm Ivpb IV 04/06/25 09:59 120 mls/hr Q12H SUAD Administration Lactated Ringer's 1,000 mls @ 100 mls/hr 03/30/25 11:10 Lactated Ringers IV 03/31/25 07:09 .Q10H SUAD Levofloxacin 750 mg 03/30/25 09:00 03/30/25 08:18 Levofloxacin 250 Mg Tablet PO 04/06/25 08:59 750 mg DAILY SUAD Administration Lidocaine 1 patch 03/30/25 11:09 Lidocaine 5% 1 Patch TOP 03/30/25 11:10 X1 ONE Metoprolol Succinate 100 mg 03/30/25 09:15 03/30/25 09:28 Metoprolol Succinate Xl 25 Mg Tabcr PO 04/29/25 09:14 100 mg DAILY SUAD Administration Morphine Sulfate 2 mg 03/29/25 05:01 03/29/25 16:10 Morphine Sulf Inj 10 Mg/Ml Vial IVP 04/03/25 05:00 2 mg Q4H PRN Administration PAIN SCALE 7-10 (Severe Ondansetron HCl 4 mg 03/29/25 03:49 03/29/25 16:16 Ondansetron Inj 2 Mg/Ml Inj 2 Ml IVP 04/28/25 03:48 4 mg Q6HR PRN Administration NAUSEA OR VOMITING Plan 54-year-old female with 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 Brock) hypertension, [id number]-pynxgdjgt type 2 diabetes presenting to the ED on 03/29 with chest pain will be admitted for community-acquired pneumonia, continue vanc, Bcx NGTD @24hr, and on vanc and zosyn. pt clinically is not much improved from yesterday, with WBC marginally downtrending 11 from 12. #Sepsis secondary to #Community-acquired pneumonia #Leukocytosis SIRS Criteria 4 points As per HPI, patient presenting with 2 days of chest pain likely pleuritic On examination,(tachycardia, febrile, tachypnea) WBC downtrending, 11 from 12, however pt not clinically improving at 24 hrs with abx treatment, remains intermittently febrile requiring APAP Dx - Chest x-ray shows: right-sided pneumonia - Bcx : NGTD @24 hrs : Follow up - Group A Strep negative - RSV negative - COVID and influenza negative Tx - APAP 650 mg PRN for fever - Continue vanc pending Bcx results (03/29- - START levoflox 750 mg PO qd (03/30- - d/c zosyn (03/29) #RUDDY: evidence of end organ damage Ddx: consider pre vs intra vs post renal, favor prerenal given poor po intake and sepsis Presenting with creatinine of 1.4 (up from 1.1) and BUN of 10, EGFR of 45 Cr remains elevated at 1.4, continue to hydrate with LR IV, increased rate, given lack of downtrending Cr today Tx - Increased Maintenance IV fluid with LR from 75ml/hr to 100ml/hr - Avoid nephrotoxic agent - HOLDING home Lisinopril 20 mg BID given current RUDDY and concern for worsening PNA and cough - Renally dose medications when appropriate #Pleuritic Chest pain pt reports having chest pain worse with inspiration, causing her to take shallow breaths, Tx - Lidocaine patch 5% PRN - incentive spriometer q2h to prevent atelectesis #Tachycardia overnight pt tachyardic to 100s, likely 2/2 dehydration and pain. Dx - EKG: with sinus tachycardia Tx -cont maintence fluids, see RUDDY above #CML As noted above, patient was diagnosed in [address] Brock Has an appointment in March Plan: HOLDING patient's imatinib for 400 mg p.o. daily iso PNA infxn and concern for further immunosuppression Chronic medical conditions #Hypertension #Coj-hahfcgy-pzayrgcaz type 2 diabetes Tx - HOLDING home lisinopril 20 mg PO BID - Sliding scale insulin Health Maintenance: Dispo: IV antibiotics for And maintenance IV fluids for RUDDY, pending Bcx Lines: LR 100 ml/hr (increased from 75ml/hg) Diet: Cardiac Bowel: Senna prn GI prophylaxis: Not indicated DVT prophylaxis: Heparin subcu 5000 q12 Code: Full Case discussed with my attending Dr. Juan Carlos Ocampo MD PGY-1 Attending Provider Attestation/Addendum Nadya Rivas DO, attest that I was physically present for the moffett portions of the service and evaluated the patient with the resident and I reviewed and discussed the case with the resident and agree with the resident's findings and plans of care as documented above Patient seen and evaluated this afternoon. Patient states that she is very tired and fatigued and complains of soreness in her chest. Chest pain is reproducible on palpation and deep inspiration. She continues to have fevers overnight. Due to concern for RUDDY, will obtain MRSA nares to narrow vancomycin coverage. Increased IV fluid rate due to RUDDY. F/u cultures.
--- NOTE | 2025-03-30 11:20 | PC.SS ---
Patient Rosanna Wisdom is a 54 Year old female admitted for Community-Acquired PNA. Patient reports she lives at home with family. Patient reports her daughter, Lexi Wisdom is surrogate decision maker, [phone]. Patient reports she is able to complete all ADL's independently. Patient does not utilizes a cane to assist with ambulation. Choice of pharmacy is [facility]-Pharmacy. PCP is Maricel Littlejohn. At time of discharge patient will return back home. Next of Kin, Daughter, Lexi Wisdom [phone] Discharge Plan: Home
[2025-03-30] MEDS: LIDOCAINE 5% 1 PATCH TOP (13:42)
[2025-03-30] MEDS: RINGERS LACTATED 1000 ML 1,000 ML 100 ML IV ×2 (19:10→22:11)
[2025-03-30] MEDS: ONDANSETRON INJ 2 MG/ML INJ 2 ML 4 MG IVP (22:13)
[2025-03-31] VITALS (11 sets, daily range): BP systolic 97–136; BP diastolic 54–79; PULSE 85–99; RESP 18–20; TEMP 36–37.2; O2SAT 95–100
[2025-03-31 06:08] LABS: Basophils # (Auto) 0.0 Thou/mm3 (0.0-0.2); Basophils % (Auto) 0 % (0-2.5); Eosinophils # (Auto) 0.2 Thou/mm3 (0.0-0.5); Eosinophils % (Auto) 2 % (0-10); Hematocrit 27.7 % (36.0-46.0); Hemoglobin 8.9 g/dL (12.0-16.0); Immature Granulocytes Auto 0.04 Thou/mm3 (0.00-0.00); Lymphocytes # (Auto) 1.2 Thou/mm3 (1.0-4.8); Lymphocytes % (Auto) 8 % (10-50); Mean Corpuscular HGB Conc 32.1 g/dl (31.0-37.0); Mean Corpuscular Hemoglobin 30.5 pg (25.0-35.0); Mean Corpuscular Volume 95 fL (80-100); Monocytes # (Auto) 1.8 Thou/mm3 (0.0-0.8); Monocytes % (Auto) 12 % (0-12); Neutrophils # (Auto) 11.3 Thou/mm3 (1.8-7.7); Neutrophils % (Auto) 78 % (37-80); Nucleated Red Blood Cell # 0.00 Thou/mm3 (0.00-0.00); Nucleated Red Blood Cell % 0 /100 WBC (0); Platelet Count 163 Thou/mm3 (140-440); RDW Standard Deviation 48.3 fL (36.4-46.3); Red Blood Count 2.92 Miln/mm3 (4.00-5.20); White Blood Count 14.5 Thou/mm3 (3.6-11.0)
[2025-03-31 06:39] LABS: Alanine Aminotransferase 11 U/L (10-49); Albumin, Serum 3.4 gm/dL (3.5-5.0); Albumin/Globulin Ratio 1.2 (1.2-2.2); Alkaline Phosphatase 92 U/L (46-116); Anion Gap 9 (7-16); Aspartate Amino Transferase 15 U/L (0-34); BUN/Creatinine Ratio 9 Ratio (12-20); Bilirubin,Total 0.7 mg/dL (0.3-1.2); Blood Urea Nitrogen 10 mg/dL (9-23); Calcium 8.5 mg/dL (8.3-10.6); Calcium (Corrected) 9.0 mg/dL (8.5-10.1); Carbon Dioxide 25.2 mMol/L (20.0-31.0); Chloride 103 mMol/L (98-107); Creatinine (Component) 1.1 mg/dL (0.6-1.3); Estimated Creatinine Clearance 75.0 mL/min (>60); Globulin 2.8 gm/dL (2.3-3.5); Glucose 116 mg/dL (74-106); Magnesium 1.9 mg/dL (1.6-2.6); Osmolality,Calculated 273 (275-295); Phosphorous 2.9 mg/dL (2.4-5.1); Potassium 4.8 mMol/L (3.4-5.1); Sodium 137 mMol/L (136-145); Total Protein 6.2 gm/dL (5.7-8.2); eGFR 60 See Note
[2025-03-31] MEDS: HEPARIN SOD INJ 5000 UNIT/ML VIAL SC ×2 (08:05→20:59)
[2025-03-31] MEDS: METOPROLOL SUCCINATE XL 25 MG TABCR 100 MG PO (08:06)
[2025-03-31] MEDS: LEVOFLOXACIN 250 MG TABLET 750 MG PO (08:08)
--- NOTE | 2025-03-31 08:16 | PC.NURSE ---
Patient at rest RA stating at 84. Had to put her back on 2L stating at 89 now
--- NOTE | 2025-03-31 08:28 | ESPR_ITS ---
<Statement entered by Hill Vieira MD - 04/01/25 18:27> Patient seen and examined at bedside, no acute overnight events. I discussed and supervised with the purchasing intern physician who took care of this patient. I personally saw and examined the patient. I agree with most of the assessment and plan. patient does not show significant improvement, continues to complain of reproducible, central chest pain. Considering pericarditis, started ibuprofen and colchicine. Continuing IV antibiotics. Plan of care discussed with attending Dr. Rangel. Hill Vieira MD PGY-2 Documentation for date of: 03/31/25 Subjective Subjective Interval history: Patient febrile overnight with APAP given. Patient continues to have low-grade fevers overnight This morning patient reports pleuritic chest pain that radiates to the back worse when laying down, she states that she is very fatigued and feels worse than when she came in. Today suspected patient to have acute pericarditis given pleuritic chest pain, EKG and echo unremarkable, troponin 0.030, patient started on anti-inflammatory medication with 800 of ibuprofen 3 times daily and 0.6 colchicine twice daily. cardiology consulted Exam Vital Signs Temp Pulse Resp BP Pulse Ox O2 Del Method O2 Flow Rate 97.0 F 94 18 136/54 H 97 Room Air 1 03/31/25 04:00 03/31/25 08:06 03/31/25 07:45 03/31/25 08:06 03/31/25 07:45 03/31/25 04:00 03/31/25 07:45 patient febrile overnight with low-grade fevers Tylenol given Heart rate within normal limits BP within normal limits On 1 L normal nasal cannula satting well Narrative Exam GENERAL:moderate discomfort, AAO x3, laying in bed with HEENT: Head AT/ NC. CARDIOVASCULAR: Regular rate, regular rhythm . Normal S1/S2, No m/r/g. trace edema of bilateral LEs. RESPIRATORY: Right lower lung loaiza, end expiratory wheezing. left lung loaiza clear to auscultation, breaths are shallow given her chest pain on inspiration GASTROINTESTINAL: Abdomen soft, non tender no palpable masses. Bowel sounds present, no suprapubic tenderness MUSCULOSKELETAL:? No cyanosis or edema, no visible joint swelling. NEUROLOGICAL: CN II-XII grossly intact. No focal deficits. moving 4 extremities PSYCHIATRIC: Awake and alert, but very tired, not agitated, normal mood and affect. SKIN: No obvious rashes, no jaundice, normal turgor. Objective Labs 04/01/25 05:10 04/01/25 05:10 Labs: Laboratory Results - last 24 hr 03/31/25 05:04 WBC 14.5 H RBC 2.92 L Hgb 8.9 L Hct 27.7 L MCV 95 MCH 30.5 MCHC 32.1 RDW Std Deviation 48.3 H Plt Count 163 Neut % (Auto) 78 Lymph % (Auto) 8 L [place] % (Auto) 12 Eos % (Auto) 2 Baso % (Auto) 0 Neut # (Auto) 11.3 H Lymph # (Auto) 1.2 [place] # (Auto) 1.8 H Eos # (Auto) 0.2 Baso # (Auto) 0.0 Immature Gran # (Auto) 0.04 H Absolute Nucleated RBC 0.00 Immature Gran % 0 Nucleated RBC % 0 Sodium 137 Potassium 4.8 Chloride 103 Carbon Dioxide 25.2 Anion Gap 9 BUN 10 Creatinine 1.1 Estim Creat Clear Calc 75.0 eGFR 60 BUN/Creatinine Ratio 9 L Glucose 116 H Calculated Osmolality 273 L Calcium 8.5 Corrected Calcium 9.0 Phosphorus 2.9 Magnesium 1.9 Total Bilirubin 0.7 AST 15 ALT 11 Alkaline Phosphatase 92 Total Protein 6.2 Albumin 3.4 L Globulin 2.8 Albumin/Globulin Ratio 1.2 Quality Measures Quality Measures none Assessment & Plan Assessment Current Active Medications: Generic Name Dose Route Start Last Admin Trade Name Norrisq PRN Reason Stop Dose Admin Acetaminophen 650 mg 03/29/25 05:01 03/30/25 18:58 Acetaminophen 325 Mg Tablet PO 04/28/25 05:00 650 mg Q6H PRN Administration Pain 1-3 and/or Fever >100.1 Hydrocodone Bitart/Acetaminophen 1 tab 03/29/25 05:01 03/31/25 08:08 Hydrocodone/Apap 10/325 Tab PO 04/03/25 05:00 1 tab Q4H PRN Administration PAIN SCALE 4-6 (Moderate Heparin Sodium (Porcine) 5,000 unit 03/29/25 09:00 03/31/25 08:05 Heparin Sod Inj 5000 Unit/Ml Vial SC 04/12/25 08:59 5,000 unit Q12HR SUAD Administration Magnesium Sulfate 2 gm in 50 mls @ 25 mls/hr 03/31/25 08:27 Magnesium Sulfate Ivpb IV 03/31/25 10:26 X1 ONE Levofloxacin 750 mg 03/30/25 09:00 03/31/25 08:08 Levofloxacin 250 Mg Tablet PO 04/06/25 08:59 750 mg DAILY SUAD Administration Lidocaine 1 patch 03/30/25 14:09 Lidocaine 5% 1 Patch TOP 04/29/25 14:08 DAILY PRN LOCALIZED PAIN Metoprolol Succinate 100 mg 03/30/25 09:15 03/31/25 08:06 Metoprolol Succinate Xl 25 Mg Tabcr PO 04/29/25 09:14 100 mg DAILY SUAD Administration Morphine Sulfate 2 mg 03/29/25 05:01 03/29/25 16:10 Morphine Sulf Inj 10 Mg/Ml Vial IVP 04/03/25 05:00 2 mg Q4H PRN Administration PAIN SCALE 7-10 (Severe Ondansetron HCl 4 mg 03/29/25 03:49 03/30/25 22:13 Ondansetron Inj 2 Mg/Ml Inj 2 Ml IVP 04/28/25 03:48 4 mg Q6HR PRN Administration NAUSEA OR VOMITING Plan 4-year-old female with 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 Brock) hypertension, hmu-[id number]-[id number] type 2 diabetes presenting to the ED on 03/29 with chest pain will be admitted for community- acquired pneumonia. RUDDY resolving, patient continues to have intermittent fevers requiring APAP white count uptrending and patient reports persistence of pleuritic chest pain concerning for acute pericarditis, started patient on ibuprofen and colchicine for suspected pericarditis, holding vancomycin given concern for renal toxicity with NSAIDs, pending cocci labs, and continuing IV fluids at increased dose 130 mL/h LR. #Suspected acute pericarditis #Pleuritic Chest pain Differential diagnosis includes acute pericarditis (idiopathic versus viral) versus costochondritis considered given some relief with lidocaine patches however pain persists versus MN unlikely given EKG unremarkable for ischemic changes versus aortic dissection unlikely given chest x-ray shows no evidence of enlarged mediastinum versus PE however patient not tachycardic, Inflammatory cell markers elevated consistent with acute pericarditis pt reports having chest pain worse with inspiration and laying flat, causing her to take shallow breaths, Discussed with patient whether she has a history of GI bleed or gastritis that would preclude us from ordering high-dose NSAIDs, patient did not report a history of this proceeded with high-dose NSAIDs Dx -Elevated ESR and CRP - EKG without ischemic changes ? Echo with normal ejection fraction and no evidence of pericardial effusion - Chest x-ray with no evidence of enlarged mediastinum Tx - Ibuprofen 600 mg 3 times daily for 1 week then decrease dose to 400 mg 3 times daily - Colchicine 0.6 mg twice daily (per up-to-date dosing for acute pericarditis continue colchicine for 3 months) - Lidocaine patch 5% PRN #Sepsis secondary to #Community-acquired pneumonia #Leukocytosis uptrending SIRS Criteria 4 points As per HPI, patient presenting with 2 days of chest pain likely pleuritic On examination,(tachycardia, febrile, tachypnea) WBC uptrending, 14 from 11, pt not clinically improving at 24 hrs with abx treatment, remains intermittently febrile requiring APAP, Considering valley fever Dx -Follow-up cocci labs -Follow-up MRSA nares - Chest x-ray shows: right-sided pneumonia - Bcx : NGTD @48 hr - Group A Strep negative - RSV negative - COVID and influenza negative Tx - APAP 650 mg PRN for fever - incentive spriometer q2h to prevent atelectesis -Holding vanc given dose of high NSAIDs and concern for renal toxicity see #pericarditis above - Continue levoflox 750 mg PO qd (03/30- - d/c zosyn (03/29) #RUDDY: evidence of end organ damage-resolving Ddx: consider pre vs intra vs post renal, favor prerenal given poor po intake and sepsis Presenting with creatinine of 1.4 (up from 1.1) and BUN of 10, EGFR of 45 Cr decreased to 1.1 back at baseline continue to hydrate with LR IV given poor p.o. intake Tx - Increased Maintenance IV fluid with LR from 75ml/hr to 100ml/hr - Avoid nephrotoxic agent - HOLDING home Lisinopril 20 mg BID given current RUDDY and concern for worsening PNA and cough - Renally dose medications when appropriate #Tachycardia-resolving overnight heart rate within normal limits, continue to hydrate patient through IV Dx - EKG: with sinus tachycardia Tx -cont maintence fluids at increased rate (130 mL/h LR), see RUDDY above #CML As noted above, patient was diagnosed in [address] Brock Has an appointment in March Plan: HOLDING patient's imatinib for 400 mg p.o. daily iso PNA infxn and concern for further immunosuppression Chronic medical conditions #Hypertension #Yaz-ynqbyoz-rbuyruhby type 2 diabetes Tx - HOLDING home lisinopril 20 mg PO BID - Sliding scale insulin Health Maintenance: Dispo: IV antibiotics for And maintenance IV fluids for RUDDY, pending Bcx Lines: LR 100 ml/hr (increased from 75ml/hg) Diet: Cardiac, Ensure Bowel: Senna prn GI prophylaxis: Not indicated DVT prophylaxis: Heparin subcu 5000 q12 Code: Full Case discussed with my senior resident Dr. Vieira Case discussed with my attending Dr. Juan Carlos Ocampo MD PGY-1 Attending Provider Attestation/Addendum I, Nadya Rangel DO, attest that I was physically present for the [place] portions of the service and evaluated the patient with the resident and I reviewed and discussed the case with the resident and agree with the resident's findings and plans of care as documented above Patient seen and evaluated this AM. She continues to complain of fatigue. However, she states that her chest pain appears to be worse when she lays flat, but denies any shorntess of breath. The pain is reproducible on palpation of the sternum. Will consult cardiology for further recommendations due to suspicion of pericarditis. Will f/u with echo read. Patient does have an elevated CRP and ESR. Will start on high dose ibuprofen at this time. Will monitor renal function closely. Pending cocci w/u as cultures are negative.
[2025-03-31] MEDS: Magnesium Sulfate 2 GM Ivpb 2 GM/50 ML BAG IV (08:45)
[2025-03-31] MEDS: RINGERS LACTATED 1000 ML 1,000 ML 100 ML IV (08:45)
--- NOTE | 2025-03-31 11:02 | ECHO_ITS ---
Transthoracic Echo Report Ht (in): 64 Wt (lb): 267 Exam Location: Echo Lab Status: Inpatient Parking Assistant: Franchesca Iraheta Indications: Procedure Performed: BP: 136 / 54 HR: 94 Technical Quality: Very Technically Difficult Study Due to Body Habitus MEASUREMENTS (Male / Female) Normal Values 2D ECHO LV Diastolic Diameter PLAX 3.9 cm 4.2 - 5.9 / 3.9 - 5.3 cm LV Systolic Diameter PLAX 2.4 cm IVS Diastolic Thickness 1.2 cm 0.6 - 1.0 / 0.6 - 0.9 cm LVPW Diastolic Thickness 1.4 cm 0.6 - 1.0 / 0.6 - 0.9 cm LV Relative Wall Thickness 0.7 LVOT Diameter 1.9 cm Ascending Aorta Diameter 2.8 cm M-MODE LV Diastolic Diameter MM 4.9 cm 4.2 - 5.9 / 3.9 - 5.3 cm IVS Diastolic Thickness MM 1.1 cm 0.6 - 1.0 / 0.6 - 0.9 cm LVPW Diastolic Thickness MM 0.9 cm 0.6 - 1.0 / 0.6 - 0.9 cm LV Relative Wall Thickness MM 0.4 0.24 - 0.42 / 0.22 - 0.42 LV Mass Index MM 81.3 g/m? 49 - 115 / 43 - 95 g/m? AV Cusp Separation MM 1.7 cm DOPPLER AV Peak Velocity 149.0 cm/s AV Peak Gradient 8.9 mmHg LVOT Peak Velocity 131.0 cm/s LVOT Peak Gradient 6.9 mmHg AV Area Cont Eq pk 2.5 cm? MV Area PHT 3.9 cm? Mitral E Point Velocity 70.3 cm/s Mitral A Point Velocity 79.5 cm/s Mitral E to A Ratio 0.9 LV E' Lateral Velocity 11.1 cm/s Mitral E to LV E' Lateral Ratio 6.3 LV E' Septal Velocity 5.7 cm/s Mitral E to LV E' Septal Ratio 12.4 PV Peak Velocity 63.8 cm/s PV Peak Gradient 1.6 mmHg FINDINGS Left Ventricle Normal left ventricular size and systolic function with no obvious regional wall motion abnormalities. Mild ventricular septal hypertophy. Normal left ventricular diastolic filling pattern for age. The ejection fraction is visually estimated at 55-60 %. Right Ventricle The right ventricle is not well visualized. The estimated right ventricular systolic pressure can not be determined due to innadequate tricuspid signal. Left Atrium The left atrium is normal by two-dimensional, color flow and Doppler imaging with no structural abnormalities, no thrombus formation present. Right Atrium Right atrium is not well visualized. Atrial Septum The interatrial septum appears normal with no evidence of a shunt. Aorta The aorta is normal by two-dimensional, color flow and Doppler interrogation. Mitral Valve The mitral valve is normal by two-dimensional, color flow and Doppler interrogation. There is no significant mitral valve regurgitation, stenosis or prolapse. Aortic Valve The aortic valve is trileaflet and normal by two-dimensional, color flow and Doppler interrogation. There is no significant aortic valve regurgitation. Tricuspid Valve The tricuspid valve is normal by two-dimensional, color flow and Doppler interrogation. There is no significant tricuspid valve regurgitation. Pulmonic Valve The pulmonic valve is not well visualized. There is no significant pulmonic valve regurgitation. Vessels The pulmonary artery appears normal. The inferior vena cava pulmonary and hepatic veins appear normal. Pericardium The pericardium is normal by two-dimensional imaging. There is no significant pericardial effusion. CONCLUSIONS Indications: SOB Very Technically Difficult Study Normal LV. Estimated EF 55-60%. Normal Diastology RV Not Visualized. No Pericardial Effusion. Martin Maciel (Electronically Signed) Final Date: 31 March 2025 16:29
[2025-03-31 11:41] LABS: Thyroid Stimulating Hormone 0.27 uIU/mL (0.55-4.78)
--- NOTE | 2025-03-31 12:18 | PC.SS ---
SS follow up note; White blood counts are elevated and being monitored. Patient will discharge home when medically cleared.
[2025-03-31] MEDS: LEVALBUTEROL RT 1.25 MG/0.5 ML NEBU INH (13:36)
[2025-03-31] MEDS: IPRATROPIUM RT 0.5 MG/ 2.5 ML NEBU INH (13:36)
[2025-03-31] MEDS: Vancomycin Inj 2,000 MG in SODIUM CHLORIDE 0.9% 500 ML 500 ML 150 MG IV ×2 (14:02→14:07)
--- NOTE | 2025-03-31 16:20 | PD.IMCONS ---
HPI Data of Consult Requesting Physician: Nadya Rangel DO Primary Care Provider: Maricel Littlejohn PA-C Consult Narrative History of present illness: 54-year-old female with past medical history of CML diagnosed in 2013, followed by Dr. Brock, hypertension, dgv-bnkocqt-nqgvywgsp type 2 diabetes pt seen in the ER with chest pain ; on going chest pain for 4-5 days EKG shows sinus tachycardia but no ischemic changes troponin pending , echo pending cc:: cc: Nadya Rangel, Meds Home Medications and Allergies Home Medications ?Medication ?Instructions ?Recorded ?Confirmed ?Type lisinopril 20 mg tablet 20 mg PO BID #0 tabs 03/17/15 03/29/25 History aspirin 81 mg tablet,delayed 81 mg PO QDAY ##0 04/17/16 03/29/25 History release (Aspir-) metformin 500 mg tablet 250 mg PO HS #0 tabs 04/17/16 03/29/25 History (Glucophage) allopurinol 100 mg tablet 200 mg PO QDAY #0 tabs 08/12/16 03/29/25 History (Zyloprim) imatinib 400 mg tablet (Gleevec) 400 mg PO QDAY #0 tabs 08/12/16 03/29/25 History atorvastatin 20 mg tablet 20 mg PO QDAY 03/29/25 03/29/25 History benzonatate 200 mg capsule 200 mg PO .TID PRN 03/29/25 03/29/25 History cephalexin 500 mg capsule 500 mg PO Q12H 03/29/25 03/29/25 History Held on 03/29/25. Instructions: Doctor's Order cyclobenzaprine 10 mg tablet 10 mg PO Q12H 03/29/25 03/29/25 History ergocalciferol (vitamin D2) 1,250 1,250 mcg PO QWEEK 03/29/25 03/29/25 History mcg (50,000 unit) capsule fluoxetine 10 mg capsule 10 mg PO QDAY 03/29/25 03/29/25 History fluoxetine 20 mg capsule 20 mg PO QDAY 03/29/25 03/29/25 History folic acid 1 mg tablet 1 mg PO QDAY 03/29/25 03/29/25 History gabapentin 400 mg capsule 400 mg PO Q12H 03/29/25 03/29/25 History metoprolol succinate 100 mg 100 mg PO Q24H 03/29/25 03/29/25 History capsule sprinkle, ext. release 24 hr (K[place]sp[place] Sprinkle) Allergies Allergy/AdvReac Type Severity Reaction Status Date / Time curry pepper Allergy Mild Rash Unverified 03/30/25 08:29 Exam Vital Signs Temp Pulse Resp BP Pulse Ox O2 Del Method O2 Flow Rate 97.2 F 88 18 114/61 100 Nasal Cannula 1 03/31/25 12:00 03/31/25 13:38 03/31/25 13:38 03/31/25 12:00 03/31/25 13:38 03/31/25 12:00 03/31/25 13:38 Routine HEENT Exam Head: Present normocephalic and atraumatic Eye: Present EOMI and PERRL ENT: Present mucous membranes moist Routine Neck Exam Neck: Present supple and trachea midline Routine Respiratory Exam Respiratory: Present chest non-tender, lungs clear, normal breath sounds and no resp distress Routine Cardiovascular Exam Cardiovascular: Present RRR Routine Abdominal Exam Abdominal: Present soft and normoactive bowel sounds Routine Extremities Exam Extremities: Present full ROM Routine Skin Exam Skin: Present intact, dry and warm Routine Neurological Exam Neurological: Present alert, oriented X3 and CN II-XII intact Routine Psychiatric Exam Psychiatric: Present normal affect and normal thought process Results Labs 03/31/25 05:04 03/31/25 05:04 Labs: Short CBC 03/31/25 Range/Units 05:04 WBC 14.5 H (3.6-11.0) Thou/mm3 Hgb 8.9 L (12.0-16.0) g/dL Hct 27.7 L (36.0-46.0) % Plt Count 163 (140-440) Thou/mm3 BMP 03/31/25 05:04 Sodium 137 Potassium 4.8 Chloride 103 Carbon Dioxide 25.2 BUN 10 Creatinine 1.1 Glucose 116 H Calcium 8.5 Liver Function 03/31/25 Range/Units 05:04 Total Bilirubin 0.7 (0.3-1.2) mg/dL AST 15 (0-34) U/L ALT 11 (10-49) U/L Alkaline Phosphatase 92 (46-116) U/L Albumin 3.4 L (3.5-5.0) gm/dL Assessment and Plan Assessment and plan (1) Pneumonia: Status: Acute (2) History of leukemia: Status: Acute (3) Hypertension: Status: Acute (4) Chest pain: Status: Acute Additional Assessment & Plan Additional Plan: pt complain chest pain over the percordium persistant possibly due to pneumonia vs pericarditis echo / troponin pending doubt ACS
[2025-03-31 16:31] LABS: C-Reactive Protein 23.2 mg/dL (0.0-0.9)
[2025-03-31 16:34] LABS: Sed Rate (ESR) 53 mm/hr (0-30)
[2025-03-31] MEDS: ASPIRIN EC 81 MG TABEC PO (16:59)
[2025-03-31 17:04] LABS: Misc Send Out* See Sep Rpt
[2025-03-31 17:29] LABS: Troponin I 0.030 ng/mL (0.0-0.045)
[2025-03-31] MEDS: IBUPROFEN TAB 600 MG TABLET PO (17:54)
[2025-03-31] MEDS: LIDOCAINE 5% 1 PATCH TOP (19:53)
[2025-03-31] MEDS: SENNA/DOCUSATE SOD 1 TAB TABLET PO (19:53)
[2025-03-31] MEDS: COLCHICINE 0.6 MG TABLET PO (20:58)
[2025-03-31] MEDS: RINGERS LACTATED 1000 ML 1,000 ML 130 ML IV (20:59)
[2025-04-01] VITALS (10 sets, daily range): BP systolic 100–123; BP diastolic 61–85; PULSE 78–98; RESP 16–22; TEMP 36.2–37.3; O2SAT 93–100; BMI 13.0
[2025-04-01] MEDS: RINGERS LACTATED 1000 ML 1,000 ML 130 ML IV (01:55)
[2025-04-01] MEDS: ACETAMINOPHEN 325 MG TABLET 650 MG PO (04:07)
[2025-04-01 06:30] LABS: Basophils # (Auto) 0.0 Thou/mm3 (0.0-0.2); Basophils % (Auto) 0 % (0-2.5); Eosinophils # (Auto) 0.3 Thou/mm3 (0.0-0.5); Eosinophils % (Auto) 2 % (0-10); Hematocrit 26.1 % (36.0-46.0); Immature Granulocytes Auto 0.08 Thou/mm3 (0.00-0.00); Lymphocytes # (Auto) 0.9 Thou/mm3 (1.0-4.8); Lymphocytes % (Auto) 6 % (10-50); Mean Corpuscular HGB Conc 33.3 g/dl (31.0-37.0); Mean Corpuscular Hemoglobin 30.9 pg (25.0-35.0); Mean Corpuscular Volume 93 fL (80-100); Monocytes # (Auto) 1.9 Thou/mm3 (0.0-0.8); Monocytes % (Auto) 13 % (0-12); Neutrophils # (Auto) 11.1 Thou/mm3 (1.8-7.7); Neutrophils % (Auto) 78 % (37-80); Nucleated Red Blood Cell # 0.00 Thou/mm3 (0.00-0.00); Nucleated Red Blood Cell % 0 /100 WBC (0); Platelet Count 177 Thou/mm3 (140-440); RDW Standard Deviation 47.8 fL (36.4-46.3); Red Blood Count 2.82 Miln/mm3 (4.00-5.20); White Blood Count 14.3 Thou/mm3 (3.6-11.0)
[2025-04-01 06:34] LABS: Hemoglobin 8.7 g/dL (12.0-16.0)
[2025-04-01 07:10] LABS: Alanine Aminotransferase 10 U/L (10-49); Albumin, Serum 3.2 gm/dL (3.5-5.0); Albumin/Globulin Ratio 1.1 (1.2-2.2); Alkaline Phosphatase 95 U/L (46-116); Anion Gap 8 (7-16); Aspartate Amino Transferase 12 U/L (0-34); BUN/Creatinine Ratio 15 Ratio (12-20); Bilirubin,Total 0.6 mg/dL (0.3-1.2); Blood Urea Nitrogen 16 mg/dL (9-23); Calcium 8.6 mg/dL (8.3-10.6); Calcium (Corrected) 9.2 mg/dL (8.5-10.1); Carbon Dioxide 25.1 mMol/L (20.0-31.0); Chloride 104 mMol/L (98-107); Creatinine (Component) 1.1 mg/dL (0.6-1.3); Estimated Creatinine Clearance 75.9 mL/min (>60); Globulin 2.8 gm/dL (2.3-3.5); Glucose 115 mg/dL (74-106); Magnesium 1.9 mg/dL (1.6-2.6); Osmolality,Calculated 276 (275-295); Phosphorous 2.6 mg/dL (2.4-5.1); Potassium 4.1 mMol/L (3.4-5.1); Sodium 137 mMol/L (136-145); Total Protein 6.0 gm/dL (5.7-8.2); eGFR 60 See Note
--- NOTE | 2025-04-01 08:17 | PC.NURSE ---
POC DISCUSSED WITH DR. DUMONT, IBU SCHEDULE TID, ASPIRIN, AND HEPARIN NO NEW CHANGES.
--- NOTE | 2025-04-01 08:21 | PD.IMPROG ---
Documentation for date of: 04/01/25 Subjective Subjective Interval history: Patient continues to complain of pain in the chest and back region Elevated white count noted Echocardiographic exam shows normal LV size no evidence of pericardial effusion Normal ejection fraction of 55% Continue treatment for pneumonia Exam Vital Signs Temp Pulse Resp BP Pulse Ox O2 Del Method O2 Flow Rate 97.2 F 86 17 100/72 95 Nasal Cannula 1 04/01/25 08:00 04/01/25 08:00 04/01/25 08:00 04/01/25 08:00 04/01/25 08:00 04/01/25 08:00 04/01/25 08:00 Routine HEENT Exam Head: Present normocephalic and atraumatic Eye: Present EOMI and PERRL ENT: Present mucous membranes moist Routine Neck Exam Neck: Present supple and trachea midline Routine Respiratory Exam Respiratory: Present chest non-tender, lungs clear, normal breath sounds and no resp distress Routine Cardiovascular Exam Cardiovascular: Present RRR Routine Abdominal Exam Abdominal: Present soft and normoactive bowel sounds Routine Extremities Exam Extremities: Present full ROM Routine Skin Exam Skin: Present intact, dry and warm Routine Neurological Exam Neurological: Present alert, oriented X3 and CN II-XII intact Routine Psychiatric Exam Psychiatric: Present normal affect and normal thought process Objective Labs 04/01/25 05:10 04/01/25 05:10 Labs: Laboratory Results - last 24 hr 03/31/25 03/31/25 04/01/25 05:04 16:55 05:10 WBC 14.3 H RBC 2.82 L Hgb 8.7 L Hct 26.1 L MCV 93 MCH 30.9 MCHC 33.3 RDW Std Deviation 47.8 H Plt Count 177 Neut % (Auto) 78 Lymph % (Auto) 6 L [place] % (Auto) 13 H Eos % (Auto) 2 Baso % (Auto) 0 Neut # (Auto) 11.1 H Lymph # (Auto) 0.9 L [place] # (Auto) 1.9 H Eos # (Auto) 0.3 Baso # (Auto) 0.0 Immature Gran # (Auto) 0.08 H Absolute Nucleated RBC 0.00 Immature Gran % 1 H Nucleated RBC % 0 ESR 53 H Sodium 137 Potassium 4.1 D Chloride 104 Carbon Dioxide 25.1 Anion Gap 8 BUN 16 Creatinine 1.1 Estim Creat Clear Calc 75.9 eGFR 60 BUN/Creatinine Ratio 15 Glucose 115 H Calculated Osmolality 276 Calcium 8.6 Corrected Calcium 9.2 Phosphorus 2.6 Magnesium 1.9 Total Bilirubin 0.6 AST 12 ALT 10 Alkaline Phosphatase 95 Troponin I 0.030 C-Reactive Prot, Quant 23.2 H Total Protein 6.0 Albumin 3.2 L Globulin 2.8 Albumin/Globulin Ratio 1.1 L TSH 0.27 L Assessment & Plan A&P Narrative Agree with current treatment with antibiotics Okay to continue ibuprofen Echo shows normal ejection fraction 50% No evidence of pericardial effusion Time Spent With Patient Time: Total time spent is greater than 50% in coordination of care (as documented) at patient's floor/unit and/or counseling patient:
[2025-04-01] MEDS: IPRATROPIUM RT 0.5 MG/ 2.5 ML NEBU INH (08:42)
[2025-04-01] MEDS: LEVALBUTEROL RT 1.25 MG/0.5 ML NEBU INH (08:42)
[2025-04-01] MEDS: LEVOFLOXACIN 250 MG TABLET 750 MG PO (09:06)
[2025-04-01] MEDS: POLYETHYLENE GLYCOL 17 GM PACKET PO (09:06)
[2025-04-01] MEDS: SENNA/DOCUSATE SOD 1 TAB TABLET PO (09:07)
[2025-04-01] MEDS: HEPARIN SOD INJ 5000 UNIT/ML VIAL SC ×2 (09:07→21:25)
[2025-04-01] MEDS: COLCHICINE 0.6 MG TABLET PO (09:07)
--- NOTE | 2025-04-01 10:00 | PC.NURSE ---
RAUL PARIKH MADE AWARE PT'S MANUAL BP 100/62 WITH A HR OF 90. PER DOCTOR OKAY TO ADMINISTER METOPROLOL PER NOV ORDER. READ BACK ORDER.
[2025-04-01] MEDS: METOPROLOL SUCCINATE XL 25 MG TABCR 100 MG PO (10:24)
[2025-04-01 12:22] LABS: Cocci Serology, IgM Positive (Negative)
[2025-04-01 12:22] LABS: Cocid Sro, CF/ID (UCD) NO CHG* See Sep Rpt
--- NOTE | 2025-04-01 13:43 | ESPR_ITS ---
<Statement entered by Hill Vieira MD - 04/01/25 19:49> Patient seen and examined at bedside, no acute overnight events. I discussed and supervised with the email marketing intern physician who took care of this patient. I personally saw and examined the patient. I agree with most of the assessment and plan. Minima improvement in subjective symptoms. Low suspicion of pericarditis per cardiology, stopped Ibuprofen and colchicine. Cocci IgM positive. IgG ordered, fluconazole initiated, antibiotics discontinued. Plan of care discussed with attending Dr. Rangel. Hill Vieira MD PGY-2 Documentation for date of: 04/01/25 Subjective Subjective Interval history: Cocci positive, patient started on antifungals dosed for immunocompromised patient given history of CML Patient mildly febrile overnight requiring APAP, and patient endorses night sweats while inpatient Patient still fatigued and reports pleuritic chest pain reproducible upon palpation. Patient reports no relief with ibuprofen and colchicine given yesterday for chest pain, concerning for pericarditis Discontinued ibuprofen and colchicine Exam Vital Signs Temp Pulse Resp BP Pulse Ox O2 Del Method O2 Flow Rate 97.4 F 92 16 100/61 99 Nasal Cannula 3 04/01/25 12:00 04/01/25 12:00 04/01/25 12:00 04/01/25 12:00 04/01/25 12:00 04/01/25 12:00 04/01/25 12:00 Patient febrile overnight requiring APAP Narrative Exam GENERAL:moderate discomfort and fatigued, AAO x3, laying in bed with head upright HEENT: Head AT/ NC. CARDIOVASCULAR: Regular rate, regular rhythm . Normal S1/S2, No m/r/g. trace edema of bilateral LEs. RESPIRATORY: Right lower lung loaiza, end expiratory wheezing. left lung loaiza clear to auscultation, breaths are shallow given her chest pain on inspiration GASTROINTESTINAL: Abdomen soft, non tender no palpable masses. Bowel sounds present, no suprapubic tenderness MUSCULOSKELETAL:? No cyanosis or edema, no visible joint swelling. NEUROLOGICAL: CN II-XII grossly intact. No focal deficits. moving 4 extremities PSYCHIATRIC: Awake and alert, but very tired, not agitated, normal mood and affect. SKIN: No obvious rashes, no jaundice, normal turgor Objective Labs 04/01/25 05:10 04/01/25 05:10 Labs: Laboratory Results - last 24 hr 03/31/25 03/31/25 03/31/25 05:04 12:00 16:55 WBC RBC Hgb Hct MCV MCH MCHC RDW Std Deviation Plt Count Neut % (Auto) Lymph % (Auto) Kerr % (Auto) Eos % (Auto) Baso % (Auto) Neut # (Auto) Lymph # (Auto) Kerr # (Auto) Eos # (Auto) Baso # (Auto) Immature Gran # (Auto) Absolute Nucleated RBC Immature Gran % Nucleated RBC % ESR 53 H Sodium Potassium Chloride Carbon Dioxide Anion Gap BUN Creatinine Estim Creat Clear Calc eGFR BUN/Creatinine Ratio Glucose Calculated Osmolality Calcium Corrected Calcium Phosphorus Magnesium Total Bilirubin AST ALT Alkaline Phosphatase Troponin I 0.030 C-Reactive Prot, Quant 23.2 H Total Protein Albumin Globulin Albumin/Globulin Ratio Coccidioides IgM Ab Positive A 04/01/25 05:10 WBC 14.3 H RBC 2.82 L Hgb 8.7 L Hct 26.1 L MCV 93 MCH 30.9 MCHC 33.3 RDW Std Deviation 47.8 H Plt Count 177 Neut % (Auto) 78 Lymph % (Auto) 6 L Kerr % (Auto) 13 H Eos % (Auto) 2 Baso % (Auto) 0 Neut # (Auto) 11.1 H Lymph # (Auto) 0.9 L Kerr # (Auto) 1.9 H Eos # (Auto) 0.3 Baso # (Auto) 0.0 Immature Gran # (Auto) 0.08 H Absolute Nucleated RBC 0.00 Immature Gran % 1 H Nucleated RBC % 0 ESR Sodium 137 Potassium 4.1 D Chloride 104 Carbon Dioxide 25.1 Anion Gap 8 BUN 16 Creatinine 1.1 Estim Creat Clear Calc 75.9 eGFR 60 BUN/Creatinine Ratio 15 Glucose 115 H Calculated Osmolality 276 Calcium 8.6 Corrected Calcium 9.2 Phosphorus 2.6 Magnesium 1.9 Total Bilirubin 0.6 AST 12 ALT 10 Alkaline Phosphatase 95 Troponin I C-Reactive Prot, Quant Total Protein 6.0 Albumin 3.2 L Globulin 2.8 Albumin/Globulin Ratio 1.1 L Coccidioides IgM Ab Quality Measures Quality Measures VTE prophylaxis and sepsis Current suspected stage: sepsis Possible source: pulmonary Blood cultures ordered: yes Antibiotic ordered: No Assessment & Plan Assessment Current Active Medications: Generic Name Dose Route Start Last Admin Trade Name Freq PRN Reason Stop Dose Admin Acetaminophen 650 mg 03/29/25 05:01 04/01/25 04:07 Acetaminophen 325 Mg Tablet PO 04/28/25 05:00 650 mg Q6H PRN Administration Pain 1-3 and/or Fever >100.1 Hydrocodone Bitart/Acetaminophen 1 tab 03/29/25 05:01 04/01/25 06:24 Hydrocodone/Apap 10/325 Tab PO 04/03/25 05:00 1 tab Q4H PRN Administration PAIN SCALE 4-6 (Moderate Aspirin 81 mg 03/31/25 16:00 04/01/25 09:06 Aspirin Ec 81 Mg Tabec PO 04/30/25 15:59 Not Given QDAY SUAD Dextrose 25 ml 04/01/25 08:26 Dextrose 50%-Water Inj 50 Ml Syringe IV 05/01/25 08:25 Q15MIN PRN BG 50-70 responsive npo pt Dextrose 50 ml 04/01/25 08:26 Dextrose 50%-Water Inj 50 Ml Syringe IV 05/01/25 08:25 Q15MIN PRN BG <50 OR BG <70 & pt unresponsive Fluconazole 400 mg 04/01/25 13:45 Fluconazole 100 Mg Tablet PO 04/08/25 13:44 QDAY SUAD Glucagon 1 mg 04/01/25 08:26 Glucagon Inj 1 Mg Vial IM Q15MIN PRN BG <70, and no IV access Heparin Sodium (Porcine) 5,000 unit 03/29/25 09:00 04/01/25 09:07 Heparin Sod Inj 5000 Unit/Ml Vial SC 04/12/25 08:59 5,000 unit Q12HR SUAD Administration Ibuprofen 200 mg 04/01/25 10:30 Ibuprofen Tab 600 Mg Tablet PO 05/01/25 10:28 PRN PRN PAIN Insulin Human Lispro 0 unit 04/01/25 11:30 04/01/25 11:37 Insulin Lispro (Admelog) 1 Unit/0.01 Ml Unit SC 05/01/25 11:29 Not Given AC [facility] Protocol Ipratropium Lamont 0.5 mg 03/31/25 11:14 04/01/25 08:42 Ipratropium Rt 0.5 Mg/ 2.5 Ml Nebu INH 04/30/25 12:59 0.5 mg Q6HRRT PRN Administration WHEEZING Levalbuterol HCl 1.25 mg 03/31/25 11:09 04/01/25 08:42 Levalbuterol Rt 1.25 Mg/0.5 Ml Nebu INH 04/30/25 10:59 1.25 mg Q6HRRT PRN Administration WHEEZING Lidocaine 1 patch 03/30/25 14:09 03/31/25 19:53 Lidocaine 5% 1 Patch TOP 04/29/25 14:08 1 patch DAILY PRN Administration LOCALIZED PAIN Metoprolol Succinate 100 mg 03/30/25 09:15 04/01/25 10:24 Metoprolol Succinate Xl 25 Mg Tabcr PO 04/29/25 09:14 100 mg DAILY SUAD Administration Morphine Sulfate 2 mg 03/29/25 05:01 03/29/25 16:10 Morphine Sulf Inj 10 Mg/Ml Vial IVP 04/03/25 05:00 2 mg Q4H PRN Administration PAIN SCALE 7-10 (Severe Ondansetron HCl 4 mg 03/29/25 03:49 03/30/25 22:13 Ondansetron Inj 2 Mg/Ml Inj 2 Ml IVP 04/28/25 03:48 4 mg Q6HR PRN Administration NAUSEA OR VOMITING Pantoprazole Sodium 40 mg 04/01/25 09:00 04/01/25 09:07 Pantoprazole Inj 40 Mg Vial IVP 05/01/25 08:59 40 mg BID SUAD Administration Polyethylene Glycol 17 gm 04/01/25 09:00 04/01/25 09:06 Polyethylene Glycol 17 Gm Packet PO 05/01/25 08:59 17 gm QDAY SUAD Administration Sennosides 1 tab 04/01/25 09:00 04/01/25 09:07 Senna/Docusate Sod 1 Tab Tablet PO 05/01/25 08:59 1 tab QAM SUAD Administration Protocol Sodium Chloride 3 ml 03/31/25 11:00 Sodium Chloride Rt Jackie 0.9% 3 Ml Nebu INH 04/30/25 10:59 PRN PRN SOLN Plan 54-year-old female with 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 Brock) hypertension, [id number] type 2 diabetes presenting to the ED on 03/29 with chest pain will be admitted for community-acquired pneumonia. RUDDY resolving, patient continues to have intermittent fevers requiring APAP white count uptrending and patient reports persistence of pleuritic chest pain initially there was concern for acute pericarditis, trialed ibuprofen and colchicine without relief pericarditis less likely etiology of pain. Patient found to be cocci positive, started fluconazole with immunocompromise dosing per up-to-date. #Suspected acute pericarditis #Pleuritic Chest pain Differential diagnosis includes acute pericarditis (idiopathic versus viral) versus costochondritis considered given some relief with lidocaine patches however pain persists versus IL unlikely given EKG unremarkable for ischemic changes versus aortic dissection unlikely given chest x-ray shows no evidence of enlarged mediastinum versus PE however patient not tachycardic, Inflammatory cell markers elevated consistent with acute pericarditis pt reports having chest pain worse with inspiration and laying flat, causing her to take shallow breaths, Discussed with patient whether she has a history of GI bleed or gastritis that would preclude us from ordering high-dose NSAIDs, patient did not report a history. Patient had no relief with ibuprofen and colchicine given 03/31, discontinued Favor costochondritis, continue to monitor if chest pain resolves with current antifungal regimen for valley fever see above Dx -Elevated ESR and CRP - EKG without ischemic changes ? Echo with normal ejection fraction and no evidence of pericardial effusion - Chest x-ray with no evidence of enlarged mediastinum Tx -Discontinue ibuprofen 600 mg 3 times daily -Discontinue colchicine 0.6 mg twice daily - Lidocaine patch 5% PRN #Sepsis secondary to # Valley fever #Community-acquired pneumonia-cocci #Leukocytosis uptrending SIRS Criteria 4 points As per HPI, patient presenting with 2 days of chest pain likely pleuritic On examination,(tachycardia, febrile, tachypnea) WBC uptrending, 14 from 11, pt not clinically improving at 24 hrs with abx treatment, remains intermittently febrile requiring APAP, Patient endorses night sweats while in the hospital, concerning for cocci Cocci positive so discontinued antibiotics and started antifungal with fluconazole using immunocompromise dosing. Evaluate patient for improvement of white count and symptoms given start of appropriate antifungal treatment Dx -Cocci positive -CTM LFTs, given antifungals -MRSA nares negative -Follow-up sputum culture - Chest x-ray shows: right-sided pneumonia - Bcx : NGTD @48 hr - Group A Strep negative - RSV negative - COVID and influenza negative Tx - d/c zosyn (03/29) - APAP 650 mg PRN for fever - incentive spriometer q2h to prevent atelectesis -Start fluconazole 400 mg p.o. daily (per up-to-date guidelines for dosing antifungals in immunocompromised patient with cocci pneumonia mild disease) -Discontinued vanc -Discontinued levoflox 750 mg PO qd (03/30-04/01) #RUDDY: evidence of end organ damage-resolved Ddx: consider pre vs intra vs post renal, favor prerenal given poor po intake and sepsis Presenting with creatinine of 1.4 (up from 1.1) and BUN of 10, EGFR of 45 Cr decreased to 1.1 back at baseline continue to hydrate with LR IV given poor p.o. intake Discontinued vancomycin, and stopped NSAIDs and colchicine Tx - Continue IV fluids 130 mL/h LR - Avoid nephrotoxic agent - HOLDING home Lisinopril 20 mg BID given current RUDDY and concern for worsening PNA and cough - Renally dose medications when appropriate #Tachycardia-resolving overnight heart rate within normal limits, continue to hydrate patient through IV Dx - EKG: with sinus tachycardia Tx -cont maintence fluids at increased rate (130 mL/h LR), see URDDY above #CML As noted above, patient was diagnosed in [address] Brock Has an appointment in March Plan: HOLDING patient's imatinib for 400 mg p.o. daily iso PNA infxn and concern for further immunosuppression Chronic medical conditions #Hypertension #[id number] type 2 diabetes Tx - HOLDING home lisinopril 20 mg PO BID - Sliding scale insulin Health Maintenance: Dispo: Cocci positive started on antifungals. Pending sputum culture. Pending cocci send out labs. Continue to monitor for improvement of valley fever pneumonia Lines: LR 100 ml/hr (increased from 75ml/hg) Diet: Cardiac, Ensure Bowel: Senna prn GI prophylaxis: Not indicated DVT prophylaxis: Heparin subcu 5000 q12 Code: Full Case discussed with my senior resident Dr. Vieira Case discussed with my attending Dr. Juan Carlos Ocampo MD PGY-1 Attending Provider Attestation/Addendum Nadya Rivas DO, attest that I was physically present for the [place] portions of the service and evaluated the patient with the resident and I reviewed and discussed the case with the resident and agree with the resident's findings and plans of care as documented above Patient seen and eval this a.m. She continues to have generalized weakness and some low-grade fevers overnight. She continues to endorse having some chest discomfort with deep inspiration. Case was discussed with cardiology who has low suspicion for pericarditis as patient has a reason for chest pain which is likely due to her pneumonia. Echocardiogram otherwise show no evidence of pleural effusion. No wall motion abnormalities. Cocci IgM was positive and patient was started on fluconazole. Will continue to monitor response. If patient remains afebrile after 24 hours, anticipate discharge in the next 24 hours.
[2025-04-01] MEDS: FLUCONAZOLE 100 MG TABLET 400 MG PO (13:59)
--- NOTE | 2025-04-01 15:08 | PC.PT ---
Patient is safe to use the bedside commode or ambulate to the bathroom with a FWW and 1 staff assist depending on her fatigue level. RN made aware.
--- NOTE | 2025-04-01 16:06 | PC.SS ---
Addendum entered by CASSIE Raymond 04/01/25 17:05: Per PT Alex- he is recommending short term SNF for the patient. Patient is hesitant on her decision for SNF vs home with home health. Contacted patient's daughter, Lexi to relay the information to assist patient with deciding on a choice and Lexi informs she will be coming this evening to speak with the patient about her options to decide as family is informed patient will need insurance authorization for SNF placement. Original Note: Rounding note: patient will be staying, receiving IV abx.
[2025-04-02] VITALS (10 sets, daily range): BP systolic 120–149; BP diastolic 64–93; PULSE 86–98; RESP 18–21; TEMP 36.1–36.6; O2SAT 96–100; BMI 46.7; BMI 13.0
[2025-04-02 06:03] LABS: Basophils # (Auto) 0.0 Thou/mm3 (0.0-0.2); Basophils % (Auto) 0 % (0-2.5); Eosinophils # (Auto) 0.3 Thou/mm3 (0.0-0.5); Eosinophils % (Auto) 2 % (0-10); Hematocrit 27.3 % (36.0-46.0); Immature Granulocytes Auto 0.06 Thou/mm3 (0.00-0.00); Lymphocytes # (Auto) 0.8 Thou/mm3 (1.0-4.8); Lymphocytes % (Auto) 7 % (10-50); Mean Corpuscular HGB Conc 31.9 g/dl (31.0-37.0); Mean Corpuscular Hemoglobin 30.6 pg (25.0-35.0); Mean Corpuscular Volume 96 fL (80-100); Monocytes # (Auto) 1.6 Thou/mm3 (0.0-0.8); Monocytes % (Auto) 14 % (0-12); Neutrophils # (Auto) 8.9 Thou/mm3 (1.8-7.7); Neutrophils % (Auto) 76 % (37-80); Nucleated Red Blood Cell # 0.00 Thou/mm3 (0.00-0.00); Nucleated Red Blood Cell % 0 /100 WBC (0); Platelet Count 186 Thou/mm3 (140-440); RDW Standard Deviation 50.4 fL (36.4-46.3); Red Blood Count 2.84 Miln/mm3 (4.00-5.20); White Blood Count 11.6 Thou/mm3 (3.6-11.0)
[2025-04-02 06:14] LABS: Hemoglobin 8.7 g/dL (12.0-16.0)
[2025-04-02 06:44] LABS: Alanine Aminotransferase 11 U/L (10-49); Albumin, Serum 3.4 gm/dL (3.5-5.0); Albumin/Globulin Ratio 1.1 (1.2-2.2); Alkaline Phosphatase 97 U/L (46-116); Anion Gap 8 (7-16); Aspartate Amino Transferase 14 U/L (0-34); BUN/Creatinine Ratio 11 Ratio (12-20); Bilirubin,Total 0.6 mg/dL (0.3-1.2); Blood Urea Nitrogen 13 mg/dL (9-23); Calcium 9.0 mg/dL (8.3-10.6); Calcium (Corrected) 9.5 mg/dL (8.5-10.1); Carbon Dioxide 27.1 mMol/L (20.0-31.0); Chloride 104 mMol/L (98-107); Creatinine (Component) 1.2 mg/dL (0.6-1.3); Estimated Creatinine Clearance 69.8 mL/min (>60); Globulin 3.1 gm/dL (2.3-3.5); Glucose 103 mg/dL (74-106); Magnesium 1.6 mg/dL (1.6-2.6); Osmolality,Calculated 277 (275-295); Phosphorous 2.9 mg/dL (2.4-5.1); Potassium 4.2 mMol/L (3.4-5.1); Sodium 139 mMol/L (136-145); Total Protein 6.5 gm/dL (5.7-8.2); eGFR 54 See Note
--- NOTE | 2025-04-02 07:29 | ESPR_ITS ---
<Statement entered by Hlil Vieira MD - 04/02/25 15:12> Patient seen and examined at bedside, no acute overnight events. I discussed and supervised with the industrial engineering intern physician who took care of this patient. I personally saw and examined the patient. I agree with most of the assessment and plan. Patient reports better mood, but still complains of tiredness. VBG did not show hypercapnia, but hypocapnia. Suspect shallow breathing in setting of pleuritic chest pain. Continuing fluconazole. CPAP at night as needed for suspected sleep apnea. Patient considering SNF for rehab. Plan of care discussed with attending Dr. London. Hill Vieira MD PGY-2 Documentation for date of: 04/02/25 Subjective Subjective Interval history: No acute events overnight patient afebrile no APAP given Patient reports feeling increased fatigue this morning Exam Vital Signs Temp Pulse Resp BP Pulse Ox O2 Del Method O2 Flow Rate 97.9 F 97 19 137/93 H 97 Nasal Cannula 4 04/02/25 04:00 04/02/25 04:00 04/02/25 04:00 04/02/25 04:00 04/02/25 04:00 04/02/25 04:00 04/02/25 04:00 24-hour vital signs reviewed Patient now on 4 L nasal cannula satting well increased from prior oxygen requirement Narrative Exam GENERAL: Markedly more fatigued than on prior exams, AAO x3, sitting upright in bed with nasal cannula in place HEENT: Head AT/ NC. CARDIOVASCULAR: Regular rate, regular rhythm, possible S3 sound heard on auscultation. Normal S1/S2, No m/r/g. trace edema of bilateral LEs. RESPIRATORY: Right lower lung loaiza, end expiratory wheezing. left lung loaiza clear to auscultation, patient on higher oxygen requirements than yesterday GASTROINTESTINAL: Abdomen soft, non tender no palpable masses. Bowel sounds present, no suprapubic tenderness MUSCULOSKELETAL:? No cyanosis or edema, no visible joint swelling. NEUROLOGICAL: CN II-XII grossly intact. No focal deficits. moving 4 extremities PSYCHIATRIC: Somnolent but arousable to voice, not agitated, normal mood and affect. SKIN: No obvious rashes, no jaundice, normal turgor Objective Labs 04/02/25 05:15 04/02/25 05:15 Labs: Laboratory Results - last 24 hr 03/31/25 04/02/25 12:00 05:15 WBC 11.6 H RBC 2.84 L Hgb 8.7 L Hct 27.3 L MCV 96 MCH 30.6 MCHC 31.9 RDW Std Deviation 50.4 H Plt Count 186 Neut % (Auto) 76 Lymph % (Auto) 7 L [place] % (Auto) 14 H Eos % (Auto) 2 Baso % (Auto) 0 Neut # (Auto) 8.9 H Lymph # (Auto) 0.8 L [place] # (Auto) 1.6 H Eos # (Auto) 0.3 Baso # (Auto) 0.0 Immature Gran # (Auto) 0.06 H Absolute Nucleated RBC 0.00 Immature Gran % 1 H Nucleated RBC % 0 Sodium 139 Potassium 4.2 Chloride 104 Carbon Dioxide 27.1 Anion Gap 8 BUN 13 Creatinine 1.2 Estim Creat Clear Calc 69.8 eGFR 54 L BUN/Creatinine Ratio 11 L Glucose 103 Calculated Osmolality 277 Calcium 9.0 Corrected Calcium 9.5 Phosphorus 2.9 Magnesium 1.6 Total Bilirubin 0.6 AST 14 ALT 11 Alkaline Phosphatase 97 Total Protein 6.5 Albumin 3.4 L Globulin 3.1 Albumin/Globulin Ratio 1.1 L Coccidioides IgM Ab Positive A Quality Measures Quality Measures VTE prophylaxis and sepsis Current suspected stage: sepsis Possible source: pulmonary Blood cultures ordered: yes Antibiotic ordered: No Assessment & Plan Assessment Current Active Medications: Generic Name Dose Route Start Last Admin Trade Name Freq PRN Reason Stop Dose Admin Acetaminophen 650 mg 03/29/25 05:01 04/01/25 04:07 Acetaminophen 325 Mg Tablet PO 04/28/25 05:00 650 mg Q6H PRN Administration Pain 1-3 and/or Fever >100.1 Hydrocodone Bitart/Acetaminophen 1 tab 03/29/25 05:01 04/01/25 19:43 Hydrocodone/Apap 10/325 Tab PO 04/03/25 05:00 1 tab Q4H PRN Administration PAIN SCALE 4-6 (Moderate Aspirin 81 mg 03/31/25 16:00 04/01/25 09:06 Aspirin Ec 81 Mg Tabec PO 04/30/25 15:59 Not Given QDAY SUAD Dextrose 25 ml 04/01/25 08:26 Dextrose 50%-Water Inj 50 Ml Syringe IV 05/01/25 08:25 Q15MIN PRN BG 50-70 responsive npo pt Dextrose 50 ml 04/01/25 08:26 Dextrose 50%-Water Inj 50 Ml Syringe IV 05/01/25 08:25 Q15MIN PRN BG <50 OR BG <70 & pt unresponsive Fluconazole 400 mg 04/01/25 13:45 04/01/25 13:59 Fluconazole 100 Mg Tablet PO 04/08/25 13:44 400 mg QDAY SUAD Administration Glucagon 1 mg 04/01/25 08:26 Glucagon Inj 1 Mg Vial IM Q15MIN PRN BG <70, and no IV access Heparin Sodium (Porcine) 5,000 unit 03/29/25 09:00 04/01/25 21:25 Heparin Sod Inj 5000 Unit/Ml Vial SC 04/12/25 08:59 5,000 unit Q12HR SUAD Administration Insulin Human Lispro 0 unit 04/01/25 11:30 04/02/25 07:21 Insulin Lispro (Admelog) 1 Unit/0.01 Ml Unit SC 05/01/25 11:29 Not Given AC [facility] Protocol Ipratropium [place] 0.5 mg 03/31/25 11:14 04/01/25 08:42 Ipratropium Rt 0.5 Mg/ 2.5 Ml Nebu INH 04/30/25 12:59 0.5 mg Q6HRRT PRN Administration WHEEZING Levalbuterol HCl 1.25 mg 03/31/25 11:09 04/01/25 08:42 Levalbuterol Rt 1.25 Mg/0.5 Ml Nebu INH 04/30/25 10:59 1.25 mg Q6HRRT PRN Administration WHEEZING Lidocaine 1 patch 03/30/25 14:09 03/31/25 19:53 Lidocaine 5% 1 Patch TOP 04/29/25 14:08 1 patch DAILY PRN Administration LOCALIZED PAIN Metoprolol Succinate 100 mg 03/30/25 09:15 04/01/25 10:24 Metoprolol Succinate Xl 25 Mg Tabcr PO 04/29/25 09:14 100 mg DAILY SUAD Administration Morphine Sulfate 2 mg 03/29/25 05:01 03/29/25 16:10 Morphine Sulf Inj 10 Mg/Ml Vial IVP 04/03/25 05:00 2 mg Q4H PRN Administration PAIN SCALE 7-10 (Severe Ondansetron HCl 4 mg 03/29/25 03:49 03/30/25 22:13 Ondansetron Inj 2 Mg/Ml Inj 2 Ml IVP 04/28/25 03:48 4 mg Q6HR PRN Administration NAUSEA OR VOMITING Pantoprazole Sodium 40 mg 04/01/25 09:00 04/01/25 21:24 Pantoprazole Inj 40 Mg Vial IVP 05/01/25 08:59 40 mg BID SUAD Administration Polyethylene Glycol 17 gm 04/01/25 09:00 04/01/25 09:06 Polyethylene Glycol 17 Gm Packet PO 05/01/25 08:59 17 gm QDAY SUAD Administration Sennosides 1 tab 04/01/25 09:00 04/01/25 09:07 Senna/Docusate Sod 1 Tab Tablet PO 05/01/25 08:59 1 tab QAM SUAD Administration Protocol Sodium Chloride 3 ml 03/31/25 11:00 Sodium Chloride Rt Jackie 0.9% 3 Ml Nebu INH 04/30/25 10:59 PRN PRN SOLN Plan 54-year-old female with 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 Brock) hypertension, vyl-hjirioh-vzovvedum type 2 diabetes presenting to the ED on 03/29 with chest pain will be admitted for community-acquired pneumonia. RUDDY resolving, patient continues to have intermittent fevers requiring APAP white count uptrending and patient reports persistence of pleuritic chest pain initially there was concern for acute pericarditis, trialed ibuprofen and colchicine without relief pericarditis less likely etiology of pain, subsequently discontinued. Per cardiology note today, very low level of suspicion for pericarditis. Patient afebrile and not tachycardic, more fatigued, and on 4 to 5 L nasal cannula while sitting upright, continue on antifungals for cocci given improved white count continue to monitor for other signs of clinical improvement #Anemia of chronic disease #Fatigue/ increased somnolence Ddx: Consider poor sleep due to illness symptoms of fever and dry cough could contribute to patient's lack of sleep leading to fatigue. Patient is on day 2 of antifungal therapy after previously being on antibiotic therapy for suspected community-acquired pneumonia. Given patient is now appropriately being treated for valley fever continue to monitor for signs of clinical improvement and improvement in fatigue. Favor anemia of chronic disease given findings of inflammatory anemia likely secondary to valley fever pneumonia. On exam today patient appears more fatigued and tired than prior. Patient arousable to voice and oriented x 3. Hemoglobin remained stable at 8.7 Dx ? Iron studies - Low iron low TIBC low iron saturation below unsaturated binding: Consistent with inflammatory anemia ?VBG, alkalemia, low pCO2, elevated PO2 - CTM, CBC daily #Sepsis secondary to # Valley fever #Community-acquired pneumonia-cocci #Leukocytosis downtrending 11 from 14 SIRS Criteria 4 points As per HPI, patient presenting with 2 days of chest pain likely pleuritic On examination, patient no longer tachycardic, nor febrile, however patient very fatigued. Patient endorses night sweats while in the hospital, concerning for cocci Patient continued on antifungals with fluconazole 400 mg, white blood cell count downtrending Cocci positive so discontinued antibiotics and started antifungal with fluconazole using immunocompromise dosing. Evaluate patient for improvement of white count and symptoms given start of appropriate antifungal treatment Dx -Cocci positive -CTM LFTs, given antifungals -LFTs within normal limits -MRSA nares negative - Chest x-ray shows: right-sided pneumonia - Bcx : NGTD @48 hr - Group A Strep negative - RSV negative - COVID and influenza negative Tx - d/c zosyn (03/29) - APAP 650 mg PRN for fever - incentive spriometer q2h to prevent atelectesis -Discontinued vanc -Discontinued levoflox 750 mg PO qd (03/30-04/01) - Continue fluconazole 400 mg p.o. daily ( immunocompromised patient with cocci pneumonia mild disease) #acute pericarditis, ruled out #Pleuritic Chest pain Differential diagnosis includes acute pericarditis (idiopathic versus viral) versus costochondritis considered given some relief with lidocaine patches however pain persists versus PA unlikely given EKG unremarkable for ischemic changes versus aortic dissection unlikely given chest x-ray shows no evidence of enlarged mediastinum versus PE however patient not tachycardic, Inflammatory cell markers elevated consistent with acute pericarditis pt reports having chest pain worse with inspiration and laying flat, causing her to take shallow breaths, Discussed with patient whether she has a history of GI bleed or gastritis that would preclude us from ordering high-dose NSAIDs, patient did not report a history. Patient had no relief with ibuprofen and colchicine given 03/31, discontinued Favor costochondritis, continue to monitor if chest pain resolves with current antifungal regimen for valley fever see above Dx -Elevated ESR and CRP - EKG without ischemic changes ? Echo with normal ejection fraction and no evidence of pericardial effusion - Chest x-ray with no evidence of enlarged mediastinum Tx -Discontinue ibuprofen 600 mg 3 times daily -Discontinue colchicine 0.6 mg twice daily - Lidocaine patch 5% PRN #RUDDY: evidence of end organ damage-resolved Ddx: consider pre vs intra vs post renal, favor prerenal given poor po intake and sepsis Presenting with creatinine of 1.4 (up from 1.1) and BUN of 10, EGFR of 45 Cr decreased to 1.1 back at baseline continue to hydrate with LR IV given poor p.o. intake Discontinued vancomycin, and stopped NSAIDs and colchicine Tx - Continue IV fluids 130 mL/h LR - Avoid nephrotoxic agent - HOLDING home Lisinopril 20 mg BID given current RUDDY and concern for worsening PNA and cough - Renally dose medications when appropriate #Tachycardia-resolved overnight heart rate within normal limits, continue to hydrate patient through IV Dx - EKG: with sinus tachycardia Tx -cont maintence fluids at rate (130 mL/h LR), see RUDDY above #CML As noted above, patient was diagnosed in [address] Brock Has an appointment in March Plan: HOLDING patient's imatinib for 400 mg p.o. daily iso PNA infxn and concern for further immunosuppression Chronic medical conditions #Hypertension #Jim-adtxwhb-fgjeltkdi type 2 diabetes Tx - HOLDING home lisinopril 20 mg PO BID - Sliding scale insulin Health Maintenance: Dispo: Cocci positive continue antifungals pending cocci send out labs. Continue to monitor for improvement of valley fever pneumonia Lines: LR 100 ml/hr (increased from 75ml/hg) Diet: Cardiac, Ensure with lunch and dinner Bowel: Senna prn GI prophylaxis: Pantoprazole 40 mg daily DVT prophylaxis: Heparin subcu 5000 q12 Code: Full Case discussed with my senior resident Dr. Vieira Case discussed with my attending Dr. Lita Ocampo MD PGY-1 Attending Provider Attestation/Addendum I attest that I was physically present for the evaluation, physical examination, lab and imaging review of the patient with the residents. I discussed the case with the residents and agree with the findings and plans of care as documented above. At bedside today, patient states she is feeling tired. She states that she did have good amount of sleep but still feels very tired. Continues to be on 2 L nasal cannula, saturating well. ABG was obtained, did not show any CO2 retention. Continues to be on fluconazole. Awaiting placement to SNF to continue physical therapy. Te London MD
[2025-04-02] MEDS: ASPIRIN EC 81 MG TABEC PO (09:38)
[2025-04-02] MEDS: FLUCONAZOLE 100 MG TABLET 400 MG PO (09:38)
[2025-04-02] MEDS: METOPROLOL SUCCINATE XL 25 MG TABCR 100 MG PO (09:39)
[2025-04-02] MEDS: HEPARIN SOD INJ 5000 UNIT/ML VIAL SC ×2 (09:39→22:24)
[2025-04-02] MEDS: POLYETHYLENE GLYCOL 17 GM PACKET PO (09:39)
[2025-04-02] MEDS: SENNA/DOCUSATE SOD 1 TAB TABLET PO (09:40)
--- NOTE | 2025-04-02 10:36 | ESPR_ITS ---
Documentation for date of: 04/02/25 Subjective Subjective Interval history: Echo is unremarkable Doubt pericarditis Agree with current treatment plan Exam Vital Signs Temp Pulse Resp BP Pulse Ox O2 Del Method O2 Flow Rate 97.6 F 93 19 132/83 H 98 Nasal Cannula 4 04/02/25 08:20 04/02/25 09:39 04/02/25 08:20 04/02/25 09:39 04/02/25 08:20 04/02/25 08:20 04/02/25 08:20 Routine HEENT Exam Head: Present normocephalic and atraumatic Eye: Present EOMI and PERRL ENT: Present mucous membranes moist Routine Neck Exam Neck: Present supple and trachea midline Routine Respiratory Exam Respiratory: Present chest non-tender, lungs clear, normal breath sounds and no resp distress Routine Cardiovascular Exam Cardiovascular: Present RRR Routine Abdominal Exam Abdominal: Present soft and normoactive bowel sounds Routine Extremities Exam Extremities: Present full ROM Routine Skin Exam Skin: Present intact, dry and warm Routine Neurological Exam Neurological: Present alert, oriented X3 and CN II-XII intact Routine Psychiatric Exam Psychiatric: Present normal affect and normal thought process Objective Labs 04/02/25 05:15 04/02/25 05:15 Labs: Laboratory Results - last 24 hr 03/31/25 04/02/25 12:00 05:15 WBC 11.6 H RBC 2.84 L Hgb 8.7 L Hct 27.3 L MCV 96 MCH 30.6 MCHC 31.9 RDW Std Deviation 50.4 H Plt Count 186 Neut % (Auto) 76 Lymph % (Auto) 7 L [place] % (Auto) 14 H Eos % (Auto) 2 Baso % (Auto) 0 Neut # (Auto) 8.9 H Lymph # (Auto) 0.8 L [place] # (Auto) 1.6 H Eos # (Auto) 0.3 Baso # (Auto) 0.0 Immature Gran # (Auto) 0.06 H Absolute Nucleated RBC 0.00 Immature Gran % 1 H Nucleated RBC % 0 Sodium 139 Potassium 4.2 Chloride 104 Carbon Dioxide 27.1 Anion Gap 8 BUN 13 Creatinine 1.2 Estim Creat Clear Calc 69.8 eGFR 54 L BUN/Creatinine Ratio 11 L Glucose 103 Calculated Osmolality 277 Calcium 9.0 Corrected Calcium 9.5 Phosphorus 2.9 Magnesium 1.6 Total Bilirubin 0.6 AST 14 ALT 11 Alkaline Phosphatase 97 Total Protein 6.5 Albumin 3.4 L Globulin 3.1 Albumin/Globulin Ratio 1.1 L Coccidioides IgM Ab Positive A Assessment & Plan A&P Narrative Echo is unremarkable Doubt pericarditis Agree with current treatment plan Time Spent With Patient Time: Total time spent is greater than 50% in coordination of care (as documented) at patient's floor/unit and/or counseling patient:
--- NOTE | 2025-04-02 10:44 | PC.SS ---
SNF referral submitted via [facility]
[2025-04-02] MEDS: LEVALBUTEROL RT 1.25 MG/0.5 ML NEBU INH (10:50)
[2025-04-02] MEDS: IPRATROPIUM RT 0.5 MG/ 2.5 ML NEBU INH (10:50)
[2025-04-02 11:56] LABS: Iron 9 mcg/dL (50-170); Percent Iron Saturation 4 % (20-55); Total Iron Binding Capacity 201 mcg/dL (250-425); Unsaturated Iron Binding 192 (225-295)
[2025-04-02 14:18] LABS: Base Excess, Venous 5 (-3-3); O2 Saturation, Venous 98 % (96-97); PCO2, Venous 30 mmHg (36-56); PO2, Venous 85 mmHg (15-58); pH, Venous 7.57 (7.33-7.66)
--- NOTE | 2025-04-02 15:30 | PC.SS ---
SS met with pt to discuss options for SNF, pt has decided to go to [facility]. SS updated Maricel at [facility].
--- NOTE | 2025-04-02 15:44 | PC.CC ---
PASRR Level 1 complete and downloaded; will require Level 2 clearance.
--- NOTE | 2025-04-02 16:25 | PC.SS ---
SS spoke to Maricel at [facility] who inquired if pt has her GLEEVEC at home, if she would be able to take with her to facility. SS confirmed with RN, Lucy and Pt that she has the GLEEVEC that she can take with her to facility. KP relayed messaged to Maricel.
[2025-04-02] MEDS: ACETAMINOPHEN 325 MG TABLET 650 MG PO ×2 (16:32→22:17)
[2025-04-03] VITALS (12 sets, daily range): BP systolic 119–162; BP diastolic 61–105; PULSE 80–101; RESP 18–22; TEMP 36.1–36.6; O2SAT 91–99
--- NOTE | 2025-04-03 01:48 | PC.NURSE ---
pt request cpap to be removed- Reapplied O2 inh on at 2L/min/nc.
[2025-04-03 06:38] LABS: Basophils # (Auto) 0.0 Thou/mm3 (0.0-0.2); Basophils % (Auto) 0 % (0-2.5); Eosinophils # (Auto) 0.4 Thou/mm3 (0.0-0.5); Eosinophils % (Auto) 4 % (0-10); Hematocrit 27.3 % (36.0-46.0); Hemoglobin 8.9 g/dL (12.0-16.0); Immature Granulocytes Auto 0.07 Thou/mm3 (0.00-0.00); Lymphocytes # (Auto) 1.0 Thou/mm3 (1.0-4.8); Lymphocytes % (Auto) 10 % (10-50); Mean Corpuscular HGB Conc 32.6 g/dl (31.0-37.0); Mean Corpuscular Hemoglobin 30.9 pg (25.0-35.0); Mean Corpuscular Volume 95 fL (80-100); Monocytes # (Auto) 1.2 Thou/mm3 (0.0-0.8); Monocytes % (Auto) 13 % (0-12); Neutrophils # (Auto) 6.8 Thou/mm3 (1.8-7.7); Neutrophils % (Auto) 72 % (37-80); Nucleated Red Blood Cell # 0.00 Thou/mm3 (0.00-0.00); Nucleated Red Blood Cell % 0 /100 WBC (0); Platelet Count 224 Thou/mm3 (140-440); RDW Standard Deviation 48.3 fL (36.4-46.3); Red Blood Count 2.88 Miln/mm3 (4.00-5.20); White Blood Count 9.5 Thou/mm3 (3.6-11.0)
[2025-04-03 06:54] LABS: Alanine Aminotransferase 15 U/L (10-49); Albumin, Serum 3.5 gm/dL (3.5-5.0); Albumin/Globulin Ratio 1.1 (1.2-2.2); Alkaline Phosphatase 102 U/L (46-116); Anion Gap 8 (7-16); Aspartate Amino Transferase 24 U/L (0-34); BUN/Creatinine Ratio 9 Ratio (12-20); Bilirubin,Total 0.6 mg/dL (0.3-1.2); Blood Urea Nitrogen 9 mg/dL (9-23); Calcium 9.2 mg/dL (8.3-10.6); Calcium (Corrected) 9.6 mg/dL (8.5-10.1); Carbon Dioxide 27.7 mMol/L (20.0-31.0); Chloride 106 mMol/L (98-107); Creatinine (Component) 1.0 mg/dL (0.6-1.3); Estimated Creatinine Clearance 83.8 mL/min (>60); Globulin 3.2 gm/dL (2.3-3.5); Glucose 122 mg/dL (74-106); Magnesium 2.0 mg/dL (1.6-2.6); Osmolality,Calculated 282 (275-295); Phosphorous 2.5 mg/dL (2.4-5.1); Potassium 3.9 mMol/L (3.4-5.1); Sodium 142 mMol/L (136-145); Total Protein 6.7 gm/dL (5.7-8.2); eGFR > 60 See Note
--- NOTE | 2025-04-03 08:16 | ESPR_ITS ---
Documentation for date of: 04/03/25 Subjective Subjective Interval history: No acute events overnight Patient reports feeling fatigued but okay to go to SNF once placement is found Patient trialed CPAP machine last night and did not have a restful night discussed need for sleep study so they could fit mask more appropriately to her Exam Vital Signs Temp Pulse Resp BP Pulse Ox O2 Del Method O2 Flow Rate 97.6 F 93 20 119/78 97 Nasal Cannula 2 04/03/25 04:00 04/03/25 04:15 04/03/25 04:00 04/03/25 04:00 04/03/25 04:00 04/02/25 16:20 04/02/25 16:20 FiO2 28 04/03/25 03:46 24-hour vital signs reviewed patient remains afebrile Heart rate within normal limits Respiratory rate within normal limits BP within normal limits patient has had 1 bowel movement yesterday that was soft Narrative Exam GENERAL: Markedly more slightly less fatigued today on exam, AAO x3, sitting upright in bed with nasal cannula in place HEENT: Head AT/ NC. CARDIOVASCULAR: Regular rate, regular rhythm, possible S3 sound heard on auscultation. Normal S1/S2, No m/r/g. trace edema of bilateral LEs. RESPIRATORY: Right lower lung loaiza, end expiratory wheezing. left lung loaiza clear to auscultation, GASTROINTESTINAL: Abdomen soft, non tender no palpable masses. Bowel sounds present, no suprapubic tenderness MUSCULOSKELETAL:? No cyanosis or edema, no visible joint swelling. NEUROLOGICAL: CN II-XII grossly intact. No focal deficits. moving 4 extremities PSYCHIATRIC: Somnolent but arousable to voice, not agitated, normal mood and affect. SKIN: No obvious rashes, no jaundice, normal turgor Objective Labs 04/03/25 05:30 04/03/25 05:30 Labs: Laboratory Results - last 24 hr 04/02/25 04/02/25 04/03/25 05:16 14:03 05:30 WBC 9.5 RBC 2.88 L Hgb 8.9 L Hct 27.3 L MCV 95 MCH 30.9 MCHC 32.6 RDW Std Deviation 48.3 H Plt Count 224 D Neut % (Auto) 72 Lymph % (Auto) 10 [place] % (Auto) 13 H Eos % (Auto) 4 Baso % (Auto) 0 Neut # (Auto) 6.8 Lymph # (Auto) 1.0 [place] # (Auto) 1.2 H Eos # (Auto) 0.4 Baso # (Auto) 0.0 Immature Gran # (Auto) 0.07 H Absolute Nucleated RBC 0.00 Immature Gran % 1 H Nucleated RBC % 0 VBG pH 7.57 VBG pCO2 30 L VBG pO2 85 H VBG O2 Sat (Miriam) 98 H VBG Base Excess 5 H Sodium 142 Potassium 3.9 Chloride 106 Carbon Dioxide 27.7 Anion Gap 8 BUN 9 Creatinine 1.0 Estim Creat Clear Calc 83.8 eGFR > 60 BUN/Creatinine Ratio 9 L Glucose 122 H Calculated Osmolality 282 Calcium 9.2 Corrected Calcium 9.6 Phosphorus 2.5 Magnesium 2.0 Iron 9 L TIBC 201 L Iron Saturation 4 L Unsat Iron Binding 192 L Total Bilirubin 0.6 AST 24 ALT 15 Alkaline Phosphatase 102 Total Protein 6.7 Albumin 3.5 Globulin 3.2 Albumin/Globulin Ratio 1.1 L ABG Interpretation ABG results: 04/02/25 14:03 VBG pH 7.57 VBG pCO2 30 L VBG pO2 85 H VBG Base Excess 5 H Quality Measures Quality Measures VTE prophylaxis and sepsis Current suspected stage: sepsis Possible source: pulmonary Blood cultures ordered: yes Antibiotic ordered: No Assessment & Plan Assessment Current Active Medications: Generic Name Dose Route Start Last Admin Trade Name Freq PRN Reason Stop Dose Admin Acetaminophen 650 mg 03/29/25 05:01 04/02/25 22:17 Acetaminophen 325 Mg Tablet PO 04/28/25 05:00 650 mg Q6H PRN Administration Pain 1-3 and/or Fever >100.1 Aspirin 81 mg 03/31/25 16:00 04/02/25 09:38 Aspirin Ec 81 Mg Tabec PO 04/30/25 15:59 81 mg QDAY SUAD Administration Dextrose 25 ml 04/01/25 08:26 Dextrose 50%-Water Inj 50 Ml Syringe IV 05/01/25 08:25 Q15MIN PRN BG 50-70 responsive npo pt Dextrose 50 ml 04/01/25 08:26 Dextrose 50%-Water Inj 50 Ml Syringe IV 05/01/25 08:25 Q15MIN PRN BG <50 OR BG <70 & pt unresponsive Fluconazole 400 mg 04/01/25 13:45 04/02/25 09:38 Fluconazole 100 Mg Tablet PO 04/08/25 13:44 400 mg QDAY SUAD Administration Glucagon 1 mg 04/01/25 08:26 Glucagon Inj 1 Mg Vial IM Q15MIN PRN BG <70, and no IV access Heparin Sodium (Porcine) 5,000 unit 03/29/25 09:00 04/02/25 22:24 Heparin Sod Inj 5000 Unit/Ml Vial SC 04/12/25 08:59 5,000 unit Q12HR SUAD Administration Insulin Human Lispro 0 unit 04/01/25 11:30 04/02/25 17:37 Insulin Lispro (Admelog) 1 Unit/0.01 Ml Unit SC 05/01/25 11:29 Not Given AC [facility] Protocol Ipratropium [place] 0.5 mg 03/31/25 11:14 04/02/25 10:50 Ipratropium Rt 0.5 Mg/ 2.5 Ml Nebu INH 04/30/25 12:59 0.5 mg Q6HRRT PRN Administration WHEEZING Levalbuterol HCl 1.25 mg 03/31/25 11:09 04/02/25 10:50 Levalbuterol Rt 1.25 Mg/0.5 Ml Nebu INH 04/30/25 10:59 1.25 mg Q6HRRT PRN Administration WHEEZING Lidocaine 1 patch 03/30/25 14:09 03/31/25 19:53 Lidocaine 5% 1 Patch TOP 04/29/25 14:08 1 patch DAILY PRN Administration LOCALIZED PAIN Metoprolol Succinate 100 mg 03/30/25 09:15 04/02/25 09:39 Metoprolol Succinate Xl 25 Mg Tabcr PO 04/29/25 09:14 100 mg DAILY SUAD Administration Ondansetron HCl 4 mg 03/29/25 03:49 03/30/25 22:13 Ondansetron Inj 2 Mg/Ml Inj 2 Ml IVP 04/28/25 03:48 4 mg Q6HR PRN Administration NAUSEA OR VOMITING Pantoprazole Sodium 40 mg 04/03/25 09:00 Pantoprazole Inj 40 Mg Vial IVP 05/03/25 08:59 DAILY SUAD Polyethylene Glycol 17 gm 04/01/25 09:00 04/02/25 09:39 Polyethylene Glycol 17 Gm Packet PO 05/01/25 08:59 17 gm QDAY SUAD Administration Sennosides 1 tab 04/01/25 09:00 04/02/25 09:40 Senna/Docusate Sod 1 Tab Tablet PO 05/01/25 08:59 1 tab QAM SUAD Administration Protocol Sodium Chloride 3 ml 03/31/25 11:00 Sodium Chloride Rt Jackie 0.9% 3 Ml Nebu INH 04/30/25 10:59 PRN PRN SOLN Plan 54-year-old female with 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 Brock) hypertension, [id number] type 2 diabetes presenting to the ED on 03/29 with chest pain was admitted for community- acquired pneumonia, found to be cocci positive. RUDDY resolved. Leukocytosis resolving. Pleuritic chest pain resolving. Patient continues on antifungal medication pending SNF placement discussed with social work for authorization. #Falls Patient reports having 2 recent falls in the past several months. And having generalized weakness and fatigue Dx/Tx ? Physical therapy consulted appreciate recommendations; patient able to engage with physical therapy this morning however limited to dyspnea on exertion. Physical therapy recommend dispo to SNF for continued rehabilitation ?Up to chair 3 times daily #Anemia of chronic disease #Fatigue/ increased somnolence Given patient is now appropriately being treated for valley fever continue to monitor for signs of clinical improvement and improvement in fatigue. Favor anemia of chronic disease given findings of inflammatory anemia likely secondary to valley fever pneumonia. On exam today patient appears less fatigued than prior exam. Patient arousable to voice and oriented x 3. Hemoglobin remained stable at 8.7 Dx ? Iron studies, discharge with home iron - Low iron low TIBC low iron saturation below unsaturated binding: Consistent with inflammatory anemia ?VBG, alkalemia, low pCO2, elevated PO2 - CTM, CBC daily #Sepsis secondary to # Valley fever #Community-acquired pneumonia-cocci #Leukocytosis downtrending 9.5 from 11 SIRS Criteria 4 points As per HPI, patient presenting with 2 days of chest pain likely pleuritic On examination, patient no longer tachycardic, nor febrile, however patient very fatigued. Patient endorses night sweats while in the hospital, found to be cocci positive Patient continued on antifungals with fluconazole 400 mg, white blood cell count downtrending Continue on fluconazole using immunocompromise dosing., Continue to monitor liver function given antifungals Dx -Cocci positive -CTM LFTs, given antifungals -LFTs within normal limits -MRSA nares negative - Chest x-ray shows: right-sided pneumonia - Bcx : NGTD @48 hr - Group A Strep negative - RSV negative - COVID and influenza negative Tx - d/c zosyn (03/29) - APAP 650 mg PRN for fever - incentive spriometer q2h to prevent atelectesis -Discontinued vanc -Discontinued levoflox 750 mg PO qd (03/30-04/01) - Continue fluconazole 400 mg p.o. daily ( immunocompromised patient with cocci pneumonia mild disease) #acute pericarditis, ruled out #Pleuritic Chest pain Differential diagnosis includes acute pericarditis (idiopathic versus viral) versus costochondritis considered given some relief with lidocaine patches however pain persists versus NC unlikely given EKG unremarkable for ischemic changes versus aortic dissection unlikely given chest x-ray shows no evidence of enlarged mediastinum versus PE however patient not tachycardic, Inflammatory cell markers elevated consistent with acute pericarditis pt reports having chest pain worse with inspiration and laying flat, causing her to take shallow breaths, Discussed with patient whether she has a history of GI bleed or gastritis that would preclude us from ordering high-dose NSAIDs, patient did not report a history. Patient had no relief with ibuprofen and colchicine given 03/31, discontinued Favor costochondritis, continue to monitor if chest pain resolves with current antifungal regimen for valley fever see above Dx -Elevated ESR and CRP - EKG without ischemic changes ? Echo with normal ejection fraction and no evidence of pericardial effusion - Chest x-ray with no evidence of enlarged mediastinum Tx -Discontinue ibuprofen 600 mg 3 times daily -Discontinue colchicine 0.6 mg twice daily - Lidocaine patch 5% PRN #RUDDY: evidence of end organ damage-resolved Ddx: consider pre vs intra vs post renal, favor prerenal given poor po intake and sepsis Presenting with creatinine of 1.4 (up from 1.1) and BUN of 10, EGFR of 45 Cr decreased to 1.1 back at baseline continue to hydrate with LR IV given poor p.o. intake Discontinued vancomycin, and stopped NSAIDs and colchicine Tx - Continue IV fluids 80 mL/h LR - Avoid nephrotoxic agent - HOLDING home Lisinopril 20 mg BID given current RUDDY and concern for worsening PNA and cough - Renally dose medications when appropriate #Tachycardia-resolved overnight heart rate within normal limits, continue to hydrate patient through IV Dx - EKG: with sinus tachycardia Tx -cont maintence fluids at rate (130 mL/h LR), see RUDDY above #CML As noted above, patient was diagnosed in [address] Brock pending contributing to patient's generalized fatigue while inpatient in addition to current valley fever infection Has an appointment in March Plan: HOLDING patient's imatinib for 400 mg p.o. daily iso PNA infxn and concern for further immunosuppression Chronic medical conditions #Hypertension #[id number] type 2 diabetes Tx - HOLDING home lisinopril 20 mg PO BID - Sliding scale insulin Health Maintenance: Dispo: Cocci positive continue antifungals pending cocci send out labs. Continue to monitor for improvement of valley fever pneumonia Lines: LR 100 ml/hr (increased from 75ml/hg) Diet: Cardiac, Ensure with lunch and dinner Bowel: Senna prn GI prophylaxis: Pantoprazole 40 mg daily DVT prophylaxis: Heparin subcu 5000 q12 Code: Full Case discussed with my senior resident Dr. Vieira Case discussed with my attending Dr. Lita Ocampo MD PGY-1 Attending Provider Attestation/Addendum I attest that I was physically present for the evaluation, physical examination, lab and imaging review of the patient with the residents. I discussed the case with the residents and agree with the findings and plans of care as documented above. At bedside today, patient continues to complain of fatigue but states that she is feeling better compared to yesterday. Tried CPAP machine overnight, but patient was unable to tolerate. 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 Patient understands and agrees with plan. Awaiting placement to SNF. Te London MD
[2025-04-03] MEDS: METOPROLOL SUCCINATE XL 25 MG TABCR 100 MG PO (08:28)
[2025-04-03] MEDS: ASPIRIN EC 81 MG TABEC PO (08:29)
[2025-04-03] MEDS: FLUCONAZOLE 100 MG TABLET 400 MG PO (08:29)
[2025-04-03] MEDS: SENNA/DOCUSATE SOD 1 TAB TABLET PO (08:29)
[2025-04-03] MEDS: ACETAMINOPHEN 325 MG TABLET 650 MG PO ×2 (08:29→17:58)
[2025-04-03] MEDS: HEPARIN SOD INJ 5000 UNIT/ML VIAL SC ×2 (08:30→23:10)
[2025-04-03] MEDS: POLYETHYLENE GLYCOL 17 GM PACKET PO (08:30)
[2025-04-03] MEDS: POTASSIUM CHLORIDE 10% 20 MEQ/15 ML UDC 40 MEQ PO (08:34)
[2025-04-03] MEDS: RINGERS LACTATED 1000 ML 1,000 ML 80 ML IV (18:03)
[2025-04-03] MEDS: LIDOCAINE 5% 1 PATCH TOP (23:21)
[2025-04-04] VITALS (17 sets, daily range): BP systolic 127–169; BP diastolic 87–112; PULSE 74–113; RESP 16–20; TEMP 36.2–36.6; O2SAT 93–98
[2025-04-04] MEDS: ACETAMINOPHEN 325 MG TABLET 650 MG PO ×2 (02:34→19:36)
[2025-04-04 06:29] LABS: Basophils # (Auto) 0.0 Thou/mm3 (0.0-0.2); Basophils % (Auto) 0 % (0-2.5); Eosinophils # (Auto) 0.6 Thou/mm3 (0.0-0.5); Eosinophils % (Auto) 6 % (0-10); Hematocrit 26.6 % (36.0-46.0); Immature Granulocytes Auto 0.14 Thou/mm3 (0.00-0.00); Lymphocytes # (Auto) 1.6 Thou/mm3 (1.0-4.8); Lymphocytes % (Auto) 16 % (10-50); Mean Corpuscular HGB Conc 32.3 g/dl (31.0-37.0); Mean Corpuscular Hemoglobin 30.5 pg (25.0-35.0); Mean Corpuscular Volume 94 fL (80-100); Monocytes # (Auto) 1.2 Thou/mm3 (0.0-0.8); Monocytes % (Auto) 12 % (0-12); Neutrophils # (Auto) 6.5 Thou/mm3 (1.8-7.7); Neutrophils % (Auto) 65 % (37-80); Nucleated Red Blood Cell # 0.00 Thou/mm3 (0.00-0.00); Nucleated Red Blood Cell % 0 /100 WBC (0); Platelet Count 243 Thou/mm3 (140-440); RDW Standard Deviation 49.6 fL (36.4-46.3); Red Blood Count 2.82 Miln/mm3 (4.00-5.20); White Blood Count 10.0 Thou/mm3 (3.6-11.0)
[2025-04-04 06:32] LABS: Hemoglobin 8.6 g/dL (12.0-16.0)
[2025-04-04 07:19] LABS: Alanine Aminotransferase 16 U/L (10-49); Albumin, Serum 3.4 gm/dL (3.5-5.0); Albumin/Globulin Ratio 1.0 (1.2-2.2); Alkaline Phosphatase 99 U/L (46-116); Anion Gap 12 (7-16); Aspartate Amino Transferase 24 U/L (0-34); BUN/Creatinine Ratio 10 Ratio (12-20); Bilirubin,Total 0.5 mg/dL (0.3-1.2); Blood Urea Nitrogen 12 mg/dL (9-23); Calcium 9.0 mg/dL (8.3-10.6); Calcium (Corrected) 9.5 mg/dL (8.5-10.1); Carbon Dioxide 28.8 mMol/L (20.0-31.0); Chloride 103 mMol/L (98-107); Creatinine (Component) 1.2 mg/dL (0.6-1.3); Estimated Creatinine Clearance 69.8 mL/min (>60); Globulin 3.3 gm/dL (2.3-3.5); Glucose 112 mg/dL (74-106); Magnesium 1.6 mg/dL (1.6-2.6); Osmolality,Calculated 287 (275-295); Phosphorous 3.2 mg/dL (2.4-5.1); Potassium 3.7 mMol/L (3.4-5.1); Sodium 144 mMol/L (136-145); Total Protein 6.7 gm/dL (5.7-8.2); eGFR 54 See Note
[2025-04-04] MEDS: ASPIRIN EC 81 MG TABEC PO (09:15)
[2025-04-04] MEDS: Magnesium Sulfate 4 GM Ivpb 4 GM/50 ML BAG IV (09:15)
[2025-04-04] MEDS: HEPARIN SOD INJ 5000 UNIT/ML VIAL SC ×2 (09:15→22:18)
[2025-04-04] MEDS: SENNA/DOCUSATE SOD 1 TAB TABLET PO (09:16)
[2025-04-04] MEDS: METOPROLOL SUCCINATE XL 25 MG TABCR 100 MG PO (09:16)
[2025-04-04] MEDS: FLUCONAZOLE 100 MG TABLET 400 MG PO (09:16)
[2025-04-04] MEDS: POLYETHYLENE GLYCOL 17 GM PACKET PO (09:19)
[2025-04-04] MEDS: FERRIC SOD GLUC INJ 125 MG in SODIUM CHLORIDE 0.9% 100 ML 110 MG IV (11:14)
[2025-04-04] MEDS: FOLIC ACID 1 MG TABLET PO (12:29)
[2025-04-04] MEDS: RINGERS LACTATED 1000 ML 1,000 ML 80 ML IV (12:31)
--- NOTE | 2025-04-04 14:18 | PC.NURSE ---
Pt's blood pressure is running 158/109, 155/101. Called Dr. Dumont and made aware. will put in new orders. HR is 87
--- NOTE | 2025-04-04 14:20 | ESPR_ITS ---
Documentation for date of: 04/04/25 Subjective Subjective Interval history: Patient was seen and examined at the bedside. No acute overnight events reported. Patient was inquiring regarding taking a shower this morning. She reported feeling more tired this morning and her medications including fluoxetine and imatinib were resumed. Patient's iron levels were low therefore IV iron therapy was given x 1. Labs showed stable hemoglobin and white count. Kidney functions stable with creatinine 1.2. Magnesium was repleted. We are still waiting on insurance authorization. Per social media marketing specialist, will likely discharge tomorrow. Exam Vital Signs Temp Pulse Resp BP Pulse Ox O2 Del Method O2 Flow Rate 97.3 F 75 18 148/87 H 97 Room Air 1 04/04/25 08:00 04/04/25 12:00 04/04/25 08:00 04/04/25 11:14 04/04/25 08:00 04/04/25 04:00 04/03/25 23:05 FiO2 28 04/03/25 03:46 Narrative Exam GENERAL APPEARANCE: Obese female in no acute distress. Saturating well on room air. HEENT: NC, AT. MMM. EOMI, clear conjunctiva, oropharynx clear. NECK: Supple without lymphadenopathy. No stiffness or restricted ROM. HEART: Regular rate and regular rhythm, normal S1/S2, no m/r/g LUNGS: CTAB, moving air well. Mild wheezing on heard on ausc ABDOMEN: Soft, nontender, nondistended with good bowel sounds heard. BACK: No CVAT, no obvious deformity. EXTREMITIES: Without cyanosis, clubbing or edema. NEUROLOGICAL: Grossly nonfocal. Alert and oriented, moving all 4 extremities. CN not formally tested but appear grossly intact. Observed to ambulate with normal gait. Skin: Warm and dry without any rash. Psych: Appropriate mood and affect Objective Labs 04/04/25 05:20 04/04/25 05:20 Labs: Laboratory Results - last 24 hr 04/04/25 05:20 WBC 10.0 RBC 2.82 L Hgb 8.6 L Hct 26.6 L MCV 94 MCH 30.5 MCHC 32.3 RDW Std Deviation 49.6 H Plt Count 243 Neut % (Auto) 65 Lymph % (Auto) 16 [place] % (Auto) 12 Eos % (Auto) 6 Baso % (Auto) 0 Neut # (Auto) 6.5 Lymph # (Auto) 1.6 [place] # (Auto) 1.2 H Eos # (Auto) 0.6 H Baso # (Auto) 0.0 Immature Gran # (Auto) 0.14 H Absolute Nucleated RBC 0.00 Immature Gran % 1 H Nucleated RBC % 0 Sodium 144 Potassium 3.7 Chloride 103 Carbon Dioxide 28.8 Anion Gap 12 BUN 12 Creatinine 1.2 Estim Creat Clear Calc 69.8 eGFR 54 L BUN/Creatinine Ratio 10 L Glucose 112 H Calculated Osmolality 287 Calcium 9.0 Corrected Calcium 9.5 Phosphorus 3.2 Magnesium 1.6 Total Bilirubin 0.5 AST 24 ALT 16 Alkaline Phosphatase 99 Total Protein 6.7 Albumin 3.4 L Globulin 3.3 Albumin/Globulin Ratio 1.0 L ABG Interpretation ABG results: 04/02/25 14:03 VBG pH 7.57 VBG pCO2 30 L VBG pO2 85 H VBG Base Excess 5 H Quality Measures Quality Measures VTE prophylaxis and sepsis Current suspected stage: sepsis Possible source: pulmonary Blood cultures ordered: yes Antibiotic ordered: Yes Assessment & Plan Assessment Current Active Medications: Generic Name Dose Route Start Last Admin Trade Name Freq PRN Reason Stop Dose Admin Acetaminophen 650 mg 03/29/25 05:01 04/04/25 02:34 Acetaminophen 325 Mg Tablet PO 04/28/25 05:00 650 mg Q6H PRN Administration Pain 1-3 and/or Fever >100.1 Amlodipine Besylate 5 mg 04/04/25 14:30 Amlodipine Besylate 5 Mg Tablet PO 05/04/25 14:29 QDAY SUAD Aspirin 81 mg 03/31/25 16:00 04/04/25 09:15 Aspirin Ec 81 Mg Tabec PO 04/30/25 15:59 81 mg QDAY SUAD Administration Dextrose 25 ml 04/01/25 08:26 Dextrose 50%-Water Inj 50 Ml Syringe IV 05/01/25 08:25 Q15MIN PRN BG 50-70 responsive npo pt Dextrose 50 ml 04/01/25 08:26 Dextrose 50%-Water Inj 50 Ml Syringe IV 05/01/25 08:25 Q15MIN PRN BG <50 OR BG <70 & pt unresponsive Ferrous Sulfate 325 mg 04/05/25 09:00 Ferrous Sulf 325 Mg Tablet PO 05/05/25 08:59 QOD SUAD Fluconazole 400 mg 04/01/25 13:45 04/04/25 09:16 Fluconazole 100 Mg Tablet PO 04/08/25 13:44 400 mg QDAY SUAD Administration Fluoxetine HCl 30 mg 04/04/25 12:00 04/04/25 12:29 Fluoxetine Hcl 10 Mg Capsule PO 05/04/25 11:59 30 mg QDAY SUAD Administration Folic Acid 1 mg 04/04/25 12:00 04/04/25 12:29 Folic Acid 1 Mg Tablet PO 05/04/25 11:59 1 mg QDAY SUAD Administration Glucagon 1 mg 04/01/25 08:26 Glucagon Inj 1 Mg Vial IM Q15MIN PRN BG <70, and no IV access Heparin Sodium (Porcine) 5,000 unit 03/29/25 09:00 04/04/25 09:15 Heparin Sod Inj 5000 Unit/Ml Vial SC 04/12/25 08:59 5,000 unit Q12HR SUAD Administration Lactated Ringer's 1,000 mls @ 80 mls/hr 04/03/25 17:21 04/04/25 12:31 Lactated Ringers IV 04/04/25 18:20 80 mls/hr .[id number] SUAD Administration Insulin Human Lispro 0 unit 04/01/25 11:30 04/04/25 12:02 Insulin Lispro (Admelog) 1 Unit/0.01 Ml Unit SC 05/01/25 11:29 Not Given AC [facility] Protocol Ipratropium [place] 0.5 mg 03/31/25 11:14 04/02/25 10:50 Ipratropium Rt 0.5 Mg/ 2.5 Ml Nebu INH 04/30/25 12:59 0.5 mg Q6HRRT PRN Administration WHEEZING Levalbuterol HCl 1.25 mg 03/31/25 11:09 04/02/25 10:50 Levalbuterol Rt 1.25 Mg/0.5 Ml Nebu INH 04/30/25 10:59 1.25 mg Q6HRRT PRN Administration WHEEZING Lidocaine 1 patch 03/30/25 14:09 04/03/25 23:21 Lidocaine 5% 1 Patch TOP 04/29/25 14:08 1 patch DAILY PRN Administration LOCALIZED PAIN Lisinopril 20 mg 04/04/25 11:00 04/04/25 11:14 Lisinopril 20 Mg Tablet PO 05/04/25 10:59 20 mg BID SUAD Administration Metoprolol Succinate 100 mg 03/30/25 09:15 04/04/25 09:16 Metoprolol Succinate Xl 25 Mg Tabcr PO 04/29/25 09:14 100 mg DAILY SUAD Administration Home Medication- 400 mg 04/04/25 18:00 Please Speak With PO 05/04/25 17:59 Patient Caregiver To QDAY SUAD Have Rx Brought To [facility] Ondansetron HCl 4 mg 03/29/25 03:49 03/30/25 22:13 Ondansetron Inj 2 Mg/Ml Inj 2 Ml IVP 04/28/25 03:48 4 mg Q6HR PRN Administration NAUSEA OR VOMITING Pantoprazole Sodium 40 mg 04/03/25 09:00 04/04/25 09:15 Pantoprazole Inj 40 Mg Vial IVP 05/03/25 08:59 40 mg DAILY SUAD Administration Polyethylene Glycol 17 gm 04/01/25 09:00 04/04/25 09:19 Polyethylene Glycol 17 Gm Packet PO 05/01/25 08:59 17 gm QDAY SUAD Administration Sennosides 1 tab 04/01/25 09:00 04/04/25 09:16 Senna/Docusate Sod 1 Tab Tablet PO 05/01/25 08:59 1 tab QAM SUAD Administration Protocol Sodium Chloride 3 ml 03/31/25 11:00 Sodium Chloride Rt Jackie 0.9% 3 Ml Nebu INH 04/30/25 10:59 PRN PRN SOLN Plan 54-year-old female with 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 Brock) hypertension, llm-viklhnl-uqswnugql type 2 diabetes presenting to the ED on 03/29 with chest pain was admitted for community- acquired pneumonia, found to be cocci positive. RUDDY resolved. Leukocytosis resolving. Pleuritic chest pain resolving. Patient continues on antifungal medication pending SNF placement discussed with social work for authorization. #Falls Patient reports having 2 recent falls in the past several months. And having generalized weakness and fatigue Dx/Tx ? Physical therapy consulted appreciate recommendations; patient able to engage with physical therapy this morning however limited to dyspnea on exertion. Physical therapy recommend dispo to SNF for continued rehabilitation ?Up to chair 3 times daily #Anemia of chronic disease #Fatigue/ increased somnolence #Iron deficiency anemia Given patient is now appropriately being treated for valley fever continue to monitor for signs of clinical improvement and improvement in fatigue. Favor anemia of chronic disease given findings of inflammatory anemia likely secondary to valley fever pneumonia. On exam today patient appears less fatigued than prior exam. Patient arousable to voice and oriented x 3. Hemoglobin remained stable at 8.7 Dx ? IV iron therapy given x 1 ? Continue ferrous sulfate 325 mg daily from tomorrow - Low iron low TIBC low iron saturation below unsaturated binding: Consistent with inflammatory anemia ?VBG, alkalemia, low pCO2, elevated PO2 - CTM, CBC daily #Sepsis secondary to # Valley fever #Community-acquired pneumonia-cocci #Leukocytosis downtrending 9.5 from 11 SIRS Criteria 4 points As per HPI, patient presenting with 2 days of chest pain likely pleuritic On examination, patient no longer tachycardic, nor febrile, however patient very fatigued. Patient endorses night sweats while in the hospital, found to be cocci positive Patient continued on antifungals with fluconazole 400 mg, white blood cell count downtrending Continue on fluconazole using immunocompromise dosing., Continue to monitor liver function given antifungals Dx -Cocci positive -CTM LFTs, given antifungals -LFTs within normal limits -MRSA nares negative - Chest x-ray shows: right-sided pneumonia - Bcx : NGTD @48 hr - Group A Strep negative - RSV negative - COVID and influenza negative Tx - d/c zosyn (03/29) - APAP 650 mg PRN for fever - incentive spriometer q2h to prevent atelectesis -Discontinued vanc -Discontinued levoflox 750 mg PO qd (03/30-04/01) - Continue fluconazole 400 mg p.o. daily ( immunocompromised patient with cocci pneumonia mild disease) #acute pericarditis, ruled out #Pleuritic Chest pain Differential diagnosis includes acute pericarditis (idiopathic versus viral) versus costochondritis considered given some relief with lidocaine patches however pain persists versus MN unlikely given EKG unremarkable for ischemic changes versus aortic dissection unlikely given chest x-ray shows no evidence of enlarged mediastinum versus PE however patient not tachycardic, Inflammatory cell markers elevated consistent with acute pericarditis pt reports having chest pain worse with inspiration and laying flat, causing her to take shallow breaths, Discussed with patient whether she has a history of GI bleed or gastritis that would preclude us from ordering high-dose NSAIDs, patient did not report a history. Patient had no relief with ibuprofen and colchicine given 7/9, discontinued Favor costochondritis, continue to monitor if chest pain resolves with current antifungal regimen for valley fever see above Dx -Elevated ESR and CRP - EKG without ischemic changes ? Echo with normal ejection fraction and no evidence of pericardial effusion - Chest x-ray with no evidence of enlarged mediastinum Tx -Discontinue ibuprofen 600 mg 3 times daily -Discontinue colchicine 0.6 mg twice daily - Lidocaine patch 5% PRN #RUDDY: evidence of end organ damage-resolved, resolving Ddx: consider pre vs intra vs post renal, favor prerenal given poor po intake and sepsis Presenting with creatinine of 1.4 (up from 1.1) and BUN of 10, EGFR of 45 Cr decreased to 1.1 back at baseline continue to hydrate with LR IV given poor p.o. intake Discontinued vancomycin, and stopped NSAIDs and colchicine Tx - Continue IV fluids 80 mL/h LR - Avoid nephrotoxic agent - HOLDING home Lisinopril 20 mg BID given current RUDDY and concern for worsening PNA and cough - Renally dose medications when appropriate #Tachycardia-resolved overnight heart rate within normal limits, continue to hydrate patient through IV Dx - EKG: with sinus tachycardia Tx -cont maintence fluids at rate (130 mL/h LR), see RUDDY above #CML As noted above, patient was diagnosed in [address] Brock pending contributing to patient's generalized fatigue while inpatient in addition to current valley fever infection Has an appointment in March Plan: Resumed patient's imatinib for 400 mg p.o. daily iso PNA infxn and concern for further immunosuppression Chronic medical conditions #Depression #Hypertension #Inc-zdpgriy-yoeefexqe type 2 diabetes Tx -Resume fluoxetine 30 mg once daily - Resumed home lisinopril 20 mg PO BID ? Added amlodipine 5 mg once daily - Sliding scale insulin with Accu-Cheks Health Maintenance: Dispo: Cocci positive continue antifungals pending cocci send out labs. Continue to monitor for improvement of valley fever pneumonia. Pending placement Lines: LR 100 ml/hr (increased from 75ml/hg) Diet: Cardiac, Ensure with lunch and dinner Bowel: Senna prn GI prophylaxis: Pantoprazole 40 mg daily DVT prophylaxis: Heparin subcu 5000 q12 Code: Full Patient was seen and discussed with attending physician, Dr.Bishwakarma Dr. Tim MD, PGY 3 Attending Provider Attestation/Addendum I attest that I was physically present for the evaluation, physical examination, lab and imaging review of the patient with the residents. I discussed the case with the residents and agree with the findings and plans of care as documented above. At bedside today, patient continues to complain of fatigue but denies any other complaints. Resumed her home fluoxetine and imatinib. Confused IV iron. Electrolytes were repleted as well. Vitals and rest of the lab results are stable. Awaiting placement. Te London MD
[2025-04-04] MEDS: IMATINIB 400 MG TABLET PO (15:21)
--- NOTE | 2025-04-04 15:25 | PC.NURSE ---
Pt blood pressure 165/112, then 182/128. Called Dr. Dumont. New orders coming for Hydralazine
[2025-04-04] MEDS: hydrALAZINE INJ 20 MG/ML VIAL 5 MG IVP (15:35)
--- NOTE | 2025-04-04 17:50 | PC.NURSE ---
Pt feeling pressure on chest toward the left side. Feeling hot and short of breath. NEWSPAPER COPY EDITOR called.
--- NOTE | 2025-04-04 17:53 | XR_ITS ---
Examination: AP chest single view TECHNIQUE: AP upright portable chest single view Date and time: April 04, 2025, 1807 hours Comparison March 29, 2025 INDICATIONS: Rapid response today FINDINGS: Pneumonia right base. Normal heart size. Moderate vascular congestion. No benji pulmonary edema. Moderate osteopenia IMPRESSION: Pneumonia right base Moderate vascular congestion
--- NOTE | 2025-04-04 17:53 | EKG_ITS ---
[facility] Test Date: 2025-04-04 Pat Name: FRIDA TYLER [facility] Female Telephone Solicitor Supervisor: NICK : 1970 Requested By: Nerissa Alvarado Order Number: [id number] Reading MD: Nerissa Alvarado Measurements Intervals [place] Rate: 92 P: 46 NE: 153 QRS: -3 QRSD: 81 T: 30 QT: 354 QTc: 438 Interpretive Statements SINUS RHYTHM LOW QRS VOLTAGE IN PRECORDIAL LEADS POSSIBLE ANTERIOR MYOCARDIAL INFARCTION , PROBABLY OLD Compared to ECG 03/30/2025 11:33:40 No significant changes /store/S0/[id number].pdf
[2025-04-04] MEDS: MORPHINE SULF INJ 10 MG/ML VIAL IVP (18:04)
--- NOTE | 2025-04-04 18:07 | PD.RESEVENT ---
Documentation for date of: 04/04/25 Event Note Event Note: Event note for rapid response Rapid response was called at 1800 due to chest pain. Patient reported that she had 8 on 10 chest pain was dull in character worsening with breathing. She stated that pain stays in her chest and nonreproducible. Examination revealed sinus tachycardia with regular rhythm. Examination of the lungs reveal bilateral rhonchi and crackles on the bases. Patient received IV iron therapy, imatinib and fluoxetine this morning. She also received IV hydralazine due to elevated blood pressure. EKG and troponin I were ordered. Vitals showed blood pressure 144/99, heart rate 94, respiratory 18. Saturating 93% on room air. EKG showed sinus rhythm with no acute ST-T changes. 1 mg IV morphine was given x 1 along with breathing treatment x 1. Chest x-ray was ordered as well. Will follow-up with troponin and chest x-ray. Will monitor the patient for worsening pain. Patient was reassured that EKG did not show any new acute ST-T changes. Patient was seen and discussed with attending physician, Dr.Bishwakarma Dr. Tim MD, PGY 3
[2025-04-04] MEDS: ALBUTEROL/IPRATROPIUM (Duoneb) RT SOL 3 ML NEBU INH ×3 (18:10→23:59)
--- NOTE | 2025-04-04 18:21 | PC.RT ---
Rapid called at 1755. RT Gregory and I responded to bedside. EKG performed and Duoneb svn tx given.
[2025-04-04 18:25] LABS: Troponin I < 0.020 ng/mL (0.0-0.045)
[2025-04-04] MEDS: FUROSEMIDE INJ 10 MG/ML VIAL 2 ML 20 MG IVP (19:31)
--- NOTE | 2025-04-04 19:48 | PC.NURSE ---
ambulated to restroom on room air with 95% O2 sat with mild sob, and increased gq=428- Reapplied O2 inh on at 1L/min/nc when pt got back in bed.
[2025-04-05] VITALS (9 sets, daily range): BP systolic 132–152; BP diastolic 74–86; PULSE 84–105; RESP 18–21; TEMP 36.1–37.2; O2SAT 94–100
[2025-04-05] MEDS: ACETAMINOPHEN 325 MG TABLET 650 MG PO (05:30)
[2025-04-05] MEDS: ALBUTEROL/IPRATROPIUM (Duoneb) RT SOL 3 ML NEBU INH ×2 (06:31→10:28)
[2025-04-05 06:35] LABS: Basophils # (Auto) 0.0 Thou/mm3 (0.0-0.2); Basophils % (Auto) 1 % (0-2.5); Eosinophils # (Auto) 0.3 Thou/mm3 (0.0-0.5); Eosinophils % (Auto) 5 % (0-10); Hematocrit 26.3 % (36.0-46.0); Immature Granulocytes Auto 0.18 Thou/mm3 (0.00-0.00); Lymphocytes # (Auto) 1.4 Thou/mm3 (1.0-4.8); Lymphocytes % (Auto) 19 % (10-50); Mean Corpuscular HGB Conc 33.1 g/dl (31.0-37.0); Mean Corpuscular Hemoglobin 30.1 pg (25.0-35.0); Mean Corpuscular Volume 91 fL (80-100); Monocytes # (Auto) 0.9 Thou/mm3 (0.0-0.8); Monocytes % (Auto) 12 % (0-12); Neutrophils # (Auto) 4.6 Thou/mm3 (1.8-7.7); Neutrophils % (Auto) 62 % (37-80); Nucleated Red Blood Cell # 0.00 Thou/mm3 (0.00-0.00); Nucleated Red Blood Cell % 0 /100 WBC (0); Platelet Count 264 Thou/mm3 (140-440); RDW Standard Deviation 46.8 fL (36.4-46.3); Red Blood Count 2.89 Miln/mm3 (4.00-5.20); White Blood Count 7.5 Thou/mm3 (3.6-11.0)
[2025-04-05 06:54] LABS: Alanine Aminotransferase 17 U/L (10-49); Albumin, Serum 3.5 gm/dL (3.5-5.0); Albumin/Globulin Ratio 1.0 (1.2-2.2); Alkaline Phosphatase 95 U/L (46-116); Anion Gap 12 (7-16); Aspartate Amino Transferase 27 U/L (0-34); BUN/Creatinine Ratio 8 Ratio (12-20); Bilirubin,Total 0.6 mg/dL (0.3-1.2); Blood Urea Nitrogen 10 mg/dL (9-23); Calcium 8.9 mg/dL (8.3-10.6); Calcium (Corrected) 9.3 mg/dL (8.5-10.1); Carbon Dioxide 31.0 mMol/L (20.0-31.0); Chloride 101 mMol/L (98-107); Creatinine (Component) 1.2 mg/dL (0.6-1.3); Estimated Creatinine Clearance 69.8 mL/min (>60); Globulin 3.4 gm/dL (2.3-3.5); Glucose 121 mg/dL (74-106); Magnesium 1.9 mg/dL (1.6-2.6); Osmolality,Calculated 286 (275-295); Phosphorous 4.1 mg/dL (2.4-5.1); Potassium 3.5 mMol/L (3.4-5.1); Sodium 144 mMol/L (136-145); Total Protein 6.9 gm/dL (5.7-8.2); eGFR 54 See Note
[2025-04-05 07:06] LABS: Hemoglobin 8.7 g/dL (12.0-16.0)
--- NOTE | 2025-04-05 08:06 | PD.RESPRO ---
Documentation for date of: 04/05/25 Subjective Subjective Interval history: No acute events overnight Patient reports that her left leg is experiencing nerve pain, patient is requesting her home dose of gabapentin 400 mg twice daily as needed Exam Vital Signs Temp Pulse Resp BP Pulse Ox O2 Del Method O2 Flow Rate 97.6 F 89 18 145/74 H 100 Nasal Cannula 0.5 04/05/25 04:00 04/05/25 06:33 04/05/25 06:33 04/05/25 04:00 04/05/25 06:33 04/05/25 04:00 04/05/25 06:33 FiO2 28 04/03/25 03:46 24-hour vital signs reviewed, within normal limits, stable Patient remains afebrile and requiring less oxygen supplementation Objective Labs 04/05/25 05:33 04/05/25 05:33 Labs: Laboratory Results - last 24 hr 04/04/25 04/05/25 17:58 05:33 WBC 7.5 RBC 2.89 L Hgb 8.7 L Hct 26.3 L MCV 91 MCH 30.1 MCHC 33.1 RDW Std Deviation 46.8 H Plt Count 264 Neut % (Auto) 62 Lymph % (Auto) 19 [place] % (Auto) 12 Eos % (Auto) 5 Baso % (Auto) 1 Neut # (Auto) 4.6 Lymph # (Auto) 1.4 [place] # (Auto) 0.9 H Eos # (Auto) 0.3 Baso # (Auto) 0.0 Immature Gran # (Auto) 0.18 H Absolute Nucleated RBC 0.00 Immature Gran % 2 H Nucleated RBC % 0 Sodium 144 Potassium 3.5 Chloride 101 Carbon Dioxide 31.0 Anion Gap 12 BUN 10 Creatinine 1.2 Estim Creat Clear Calc 69.8 eGFR 54 L BUN/Creatinine Ratio 8 L Glucose 121 H Calculated Osmolality 286 Calcium 8.9 Corrected Calcium 9.3 Phosphorus 4.1 Magnesium 1.9 Total Bilirubin 0.6 AST 27 ALT 17 Alkaline Phosphatase 95 Troponin I < 0.020 Total Protein 6.9 Albumin 3.5 Globulin 3.4 Albumin/Globulin Ratio 1.0 L ABG Interpretation ABG results: 04/02/25 14:03 VBG pH 7.57 VBG pCO2 30 L VBG pO2 85 H VBG Base Excess 5 H Quality Measures Quality Measures VTE prophylaxis and sepsis Possible source: pulmonary Blood cultures ordered: yes Assessment & Plan Assessment Current Active Medications: Generic Name Dose Route Start Last Admin Trade Name Latrell PRN Reason Stop Dose Admin Acetaminophen 650 mg 03/29/25 05:01 04/05/25 05:30 Acetaminophen 325 Mg Tablet PO 04/28/25 05:00 650 mg Q6H PRN Administration Pain 1-3 and/or Fever >100.1 Albuterol/Ipratropium 3 ml 04/04/25 19:00 04/05/25 06:31 Albuterol/Ipratropium (Duoneb) Rt Jackie 3 Ml Nebu INH 05/04/25 18:59 3 ml Q4HRRT SUAD Administration Amlodipine Besylate 5 mg 04/04/25 14:30 04/04/25 14:49 Amlodipine Besylate 5 Mg Tablet PO 05/04/25 14:29 5 mg QDAY SUAD Administration Aspirin 81 mg 03/31/25 16:00 04/04/25 09:15 Aspirin Ec 81 Mg Tabec PO 04/30/25 15:59 81 mg QDAY SUAD Administration Imatinib 400 Mg 0 ea 04/04/25 15:00 04/04/25 15:21 Tablet PO 05/04/25 14:59 1 tablet QDAY SUAD Administration Dextrose 25 ml 04/01/25 08:26 Dextrose 50%-Water Inj 50 Ml Syringe IV 05/01/25 08:25 Q15MIN PRN BG 50-70 responsive npo pt Dextrose 50 ml 04/01/25 08:26 Dextrose 50%-Water Inj 50 Ml Syringe IV 05/01/25 08:25 Q15MIN PRN BG <50 OR BG <70 & pt unresponsive Ferrous Sulfate 325 mg 04/05/25 09:00 Ferrous Sulf 325 Mg Tablet PO 05/05/25 08:59 QOD SUAD Fluconazole 400 mg 04/01/25 13:45 04/04/25 09:16 Fluconazole 100 Mg Tablet PO 04/08/25 13:44 400 mg QDAY SUAD Administration Fluoxetine HCl 30 mg 04/04/25 12:00 04/04/25 12:29 Fluoxetine Hcl 10 Mg Capsule PO 05/04/25 11:59 30 mg QDAY SUAD Administration Folic Acid 1 mg 04/04/25 12:00 04/04/25 12:29 Folic Acid 1 Mg Tablet PO 05/04/25 11:59 1 mg QDAY SUAD Administration Glucagon 1 mg 04/01/25 08:26 Glucagon Inj 1 Mg Vial IM Q15MIN PRN BG <70, and no IV access Heparin Sodium (Porcine) 5,000 unit 03/29/25 09:00 04/04/25 22:18 Heparin Sod Inj 5000 Unit/Ml Vial SC 04/12/25 08:59 5,000 unit Q12HR SUAD Administration Hydralazine HCl 5 mg 04/04/25 15:28 Hydralazine Inj 20 Mg/Ml Vial IVP 05/04/25 15:27 Q6HR PRN SBP>180 AND DBP>100 Insulin Human Lispro 0 unit 04/01/25 11:30 04/05/25 07:48 Insulin Lispro (Admelog) 1 Unit/0.01 Ml Unit SC 05/01/25 11:29 Not Given AC [facility] Protocol Ipratropium [place] 0.5 mg 03/31/25 11:14 04/02/25 10:50 Ipratropium Rt 0.5 Mg/ 2.5 Ml Nebu INH 04/30/25 12:59 0.5 mg Q6HRRT PRN Administration WHEEZING Levalbuterol HCl 1.25 mg 03/31/25 11:09 04/02/25 10:50 Levalbuterol Rt 1.25 Mg/0.5 Ml Nebu INH 04/30/25 10:59 1.25 mg Q6HRRT PRN Administration WHEEZING Lidocaine 1 patch 03/30/25 14:09 04/03/25 23:21 Lidocaine 5% 1 Patch TOP 04/29/25 14:08 1 patch DAILY PRN Administration LOCALIZED PAIN Lisinopril 20 mg 04/04/25 11:00 04/04/25 22:14 Lisinopril 20 Mg Tablet PO 05/04/25 10:59 20 mg BID SUAD Administration Metoprolol Succinate 100 mg 03/30/25 09:15 04/04/25 09:16 Metoprolol Succinate Xl 25 Mg Tabcr PO 04/29/25 09:14 100 mg DAILY SUAD Administration Ondansetron HCl 4 mg 03/29/25 03:49 03/30/25 22:13 Ondansetron Inj 2 Mg/Ml Inj 2 Ml IVP 04/28/25 03:48 4 mg Q6HR PRN Administration NAUSEA OR VOMITING Pantoprazole Sodium 40 mg 04/03/25 09:00 04/04/25 09:15 Pantoprazole Inj 40 Mg Vial IVP 05/03/25 08:59 40 mg DAILY SUAD Administration Polyethylene Glycol 17 gm 04/01/25 09:00 04/04/25 09:19 Polyethylene Glycol 17 Gm Packet PO 05/01/25 08:59 17 gm QDAY SUAD Administration Sennosides 1 tab 04/01/25 09:00 04/04/25 09:16 Senna/Docusate Sod 1 Tab Tablet PO 05/01/25 08:59 1 tab QAM SUAD Administration Protocol Sodium Chloride 3 ml 03/31/25 11:00 Sodium Chloride Rt Jackie 0.9% 3 Ml Nebu INH 04/30/25 10:59 PRN PRN SOLN
[2025-04-05] MEDS: FERROUS SULF 325 MG TABLET PO (08:36)
[2025-04-05] MEDS: SENNA/DOCUSATE SOD 1 TAB TABLET PO (08:36)
[2025-04-05] MEDS: FLUCONAZOLE 100 MG TABLET 400 MG PO (08:36)
[2025-04-05] MEDS: METOPROLOL SUCCINATE XL 25 MG TABCR 100 MG PO (08:36)
[2025-04-05] MEDS: ASPIRIN EC 81 MG TABEC PO (08:36)
[2025-04-05] MEDS: FOLIC ACID 1 MG TABLET PO (08:36)
[2025-04-05] MEDS: IMATINIB 400 MG TABLET PO (08:37)
[2025-04-05] MEDS: HEPARIN SOD INJ 5000 UNIT/ML VIAL SC (08:37)
[2025-04-05] MEDS: POLYETHYLENE GLYCOL 17 GM PACKET PO (08:42)
[2025-04-05] MEDS: GABAPENTIN 100 MG CAPSULE 400 MG PO (09:57)
--- NOTE | 2025-04-05 12:28 | PC.SS ---
SS received a call from PT Alex, pt did very well with PT and recommendation shave changed from SNF, to [facility] PT and a rollator walker. SS met with pt to discuss DC planning. Pt PCP is Maricel Littlejohn last visit was March 23. Pt does not have a preference for HH. SS updated Maricel at [facility].
[2025-04-05] MEDS: Magnesium Sulfate 4 GM Ivpb 4 GM/50 ML BAG IV (12:56)
--- NOTE | 2025-04-05 13:13 | PC.SS ---
Addendum entered by Corrina Mccain 04/05/25 13:28: Booked [facility] via [employer] [facility] Original Note: SS submitted DME referral for Rollator Walker via [employer], pending responses
--- NOTE | 2025-04-05 15:09 | ESDS_ITS ---
<Statement entered by Hill Vieira MD - 04/05/25 15:31> Patient seen and examined at bedside, no acute overnight events. I discussed and supervised with the nurse intern physician who took care of this patient. I personally saw and examined the patient. I agree with most of the assessment and plan. Plan of care discussed with attending Dr. London. Hill Vieira MD PGY-2 Planned Discharge Date 04/05/25 DS: Providers Provider Date of admission: 03/29/25 05:01 Primary care physician: Maricel Littlejohn PA-C Admitting Provider: Dominic Mason MD Attending Provider on Admission: Te London MD Consults: 03/31/25 11:07 Referral Physical Therapy Routine Comment: Physician Instructions: 03/31/25 15:48 Consult to Cardiology Routine Comment: concern for pericarditis Consulting Provider: Faith Maciel Attending Provider on DC: RESIDENT Grupo Discharging Provider: RESIDENT Grupo DS: Diagnosis Problem List Completed Was Problem List Reviewed/Reconciled?: Yes Hospital Course Hospital Course Hospital course: 54-year-old female with 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 Brock) hypertension, mic-nteysig-crimbamka type 2 diabetes presenting to the ED on 03/29 with chest pain was admitted for community-acquired pneumonia, found to be cocci positive. Transitioned from initial antibiotic treatment with Vanco and levofloxacin to fluconazole 400 mg daily per up-to-date immunocompromised dosing and continue to monitor her LFT functions which remained within normal limits. Patient clinically improved on antifungal therapy white count resolved. While inpatient she continued to report chest pain worse with inspiration and position while laying flat, she underwent workup for suspected pericarditis which was negative with echo. Patient was treated with 1 day of high-dose NSAID and colchicine without r esolution of symptoms. Lidocaine patch provided mild relief for pleuritic chest pain. Patient was hypertensive and was started on amlodipine 5 mg daily. RUDDY likely prerenal patient was found to have anemia which likely contributed to her symptoms of fatigue and generalized weakness, patient was started on IV iron and will be discharged on p.o. iron supplements. Given patient's history of recent falls and nerve pain to the left leg physical therapy consulted while inpatient recommending home health with PT. Diagnosis #Anemia of chronic disease #Fatigue/ increased somnolence #Iron deficiency anemia #Sepsis secondary to # Valley fever #Community-acquired pneumonia-cocci #Leukocytosis #Falls #acute pericarditis, ruled out #Pleuritic Chest pain #RUDDY: evidence of end organ damage-resolved, resolving #Tachycardia-resolved #CML #Depression #Hypertension #Urn-xlljyhl-ivfttowcj type 2 diabetes Discharge plan You have been started on the following medications: -amlodipine 5mg daily -ferrous sulfate 325mg every other day -fluconazole 400mg daily Please continue taking all home meds as previously prescribed Please follow up with your primary doctor in 7-10 days Have your doctor monitor your liver enzymes Return to the ED if you develop new or worsening symptoms Case discussed with my senior resident Dr. Vieira Case discussed with my attending Dr. Lita Ocampo MD PGY-1 Time Spent with Patient Time attestation: Total time spent providing and/or coordinating discharge services:36 min Time spent: Greater than 30 minutes Exam Vital Signs Temp Pulse Resp BP Pulse Ox O2 Del Method O2 Flow Rate 98.6 F 88 18 144/75 H 100 Nasal Cannula 0.5 04/05/25 08:00 04/05/25 10:30 04/05/25 10:30 04/05/25 08:36 04/05/25 10:30 04/05/25 08:00 04/05/25 08:00 FiO2 28 04/05/25 08:00 Narrative Exam GENERAL APPEARANCE: Well-appearing in no acute distress. Saturating well on room air. HEENT: NC, AT. MMM. EOMI, clear conjunctiva, oropharynx clear. NECK: Supple without lymphadenopathy. No stiffness or restricted ROM. HEART: Regular rate and regular rhythm, normal S1/S2, no m/r/g LUNGS: CTAB, moving air well. Mild wheezing on heard on ausc ABDOMEN: Soft, nontender, nondistended with good bowel sounds heard. BACK: No CVAT, no obvious deformity. EXTREMITIES: Without cyanosis, clubbing, trace edema noted bilateral lower extremity NEUROLOGICAL: Grossly nonfocal. Alert and oriented, moving all 4 extremities. CN not formally tested but appear grossly intact. Observed to ambulate with normal gait. Skin: Warm and dry without any rash. Psych: Appropriate mood and affect Discharge Plan Plan Patient Disposition: Xfer Skilled Nsg Fac (SNF) Patient condition on transfer: Stable Care Plan Goals: You have been started on the following medications: -amlodipine 5mg daily -ferrous sulfate 325mg every other day -fluconazole 400mg daily Please continue taking all home meds as previously prescribed Please follow up with your primary doctor in 7-10 days Have your doctor monitor your liver enzymes Return to the ED if you develop new or worsening symptoms Prescriptions/Referrals Prescriptions/Med Rec: New ferrous sulfate 325 mg (65 mg iron) tablet 325 mg PO QOD Qty: 90 0RF fluconazole 200 mg tablet 400 mg PO QDAY 180 Days Qty: 360 0RF amlodipine 5 mg Tablet 5 mg PO QDAY Qty: 90 0RF Continued lisinopril 20 MG tablet 20 mg PO BID Qty: 0 metformin [Glucophage] 500 MG tablet 250 mg PO HS Qty: 0 aspirin [Aspir-81] 81 mg Tablet,Delayed Release (Dr/Ec) 81 mg PO QDAY Qty: 0 allopurinol [Zyloprim] 100 MG tablet 200 mg PO QDAY Qty: 0 imatinib [Gleevec] 400 MG tablet 400 mg PO QDAY Qty: 0 atorvastatin 20 mg tablet 20 mg PO QDAY Patient Comments: TAKE 1 TABLET BY MOUTH EVERY EVENING FOR CHOLESTEROL (STOP 40MG DOSE) ergocalciferol (vitamin D2) 1,250 mcg (50,000 unit) capsule 1,250 mcg PO QWEEK Patient Comments: TAKE 1 TABLET BY MOUTH ONCE WEEKLY folic acid 1 mg tablet 1 mg PO QDAY Patient Comments: TAKE 1 TABLET BY MOUTH EVERY DAY fluoxetine 10 mg capsule 10 mg PO QDAY Patient Comments: TAKE 1 CAPSULE BY MOUTH ONCE A DAY WITH 20MG DOSE FOR DEPRESSION fluoxetine 20 mg capsule 20 mg PO QDAY Patient Comments: TAKE 1 CAPSULE BY MOUTH EVERY DAY FOR DEPRESSION gabapentin 400 mg capsule 400 mg PO Q12H Patient Comments: TAKE 1 CAPSULE BY MOUTH TWICE A DAY NEEDED NERVE PAIN cyclobenzaprine 10 mg tablet 10 mg PO Q12H Patient Comments: TAKE 1 TABLET BY MOUTH EVERY EVENING NEEDED FOR PAIN benzonatate 200 mg capsule 200 mg PO .TID PRN Patient Comments: TAKE 1 CAPSULE BY MOUTH THREE TIMES A DAY NEEDED FOR COUGH Kapspargo Sprinkle 100 mg capsule,sprinkle,ER 24hr 100 mg PO Q24H Patient Comments: TAKE 1 CAPSULE BY MOUTH EVERY DAY Discontinued cephalexin 500 mg capsule 500 mg PO Q12H Patient Comments: TAKE 1 CAPSULE BY MOUTH 4 TIMES A DAY FOR 7 DAYS Referrals: Maricel Littlejohn PA-C [Primary Care Provider] - Patient/Caregiver Discharge Instructions Discharge Activity: activity as tolerated Education Materials: Understanding Coccidioidomycosis, ED Chest Pain Wall [facility] Print Language: Chinese Stand Alone Forms: Shira Award Info., Patient Portal Info Letter Discharge Order Discharge Orders: Discharge (Routine); Ordered 04/05/25 Ordered By: Hill Vieira Quality Discharge Quality Measures VTE prophylaxis and sepsis Attestestation MD Attestation I attest that I was physically present for the evaluation, physical examination, lab and imaging review of the patient with the residents. I discussed the case with the residents and agree with the findings and plans of care as documented above. Te London MD
--- NOTE | 2025-04-05 15:37 | PC.NURSE ---
Corrina rounding per Pt is clear to dc HH and walking device will be delivered home
--- NOTE | 2025-04-05 16:10 | PC.NURSE ---
Pt ready to dc paper work signed and ivs out.
--- NOTE | 2025-04-06 08:42 | PC.CC ---
Addendum entered by Destiny Aggarwal RN 04/06/25 11:00: [facility] accepted and booked, SOC 04/07/25 Original Note: HH ref sent out, waiting for responses
== END 2025-04-05 18:10 | disposition skilled nursing facility (03) | DRG 720 ==
LOC: SERX 04:44 → SERHOLD 05:25 → S3SX 21:24
PROVIDERS: Emergency Medicine; Internal Medicine; Student in an Organized Health Care Education/Training Program; Admitting Provider Student in an Organized Health Care Education/Training Program; Emergency Provider Student in an Organized Health Care Education/Training Program; PCP Physician Assistant; Visit Provider Student in an Organized Health Care Education/Training Program
DX: A41.9 Sepsis, unspecified organism (principal); R65.20 Severe sepsis without septic shock; I10 Essential (primary) hypertension; E11.9 Type 2 diabetes mellitus without complications; J15.9 Unspecified bacterial pneumonia; N17.9 Acute kidney failure, unspecified; C92.10 Chronic myeloid leukemia, BCR/ABL-positive, not having achieved remission; E83.39 Other disorders of phosphorus metabolism; B38.0 Acute pulmonary coccidioidomycosis; D50.9 Iron deficiency anemia, unspecified; D63.8 Anemia in other chronic diseases classified elsewhere; E87.3 Alkalosis; F32.A Depression, unspecified; E86.0 Dehydration; D84.9 Immunodeficiency, unspecified; Z74.01 Bed confinement status; Z79.82 Long term (current) use of aspirin; Z79.84 Long term (current) use of oral hypoglycemic drugs; Z79.899 Other long term (current) drug therapy
CPT/HCPCS: 36415; 71045; 80053; 80061; 80307; 81001; 82803; 83036; 83540; 83550; 83605; 83615; 83690; 83735; 83880; 84100; 84145; 84443; 84484; 85025; 85610; 85652; 85730; 86140; 86635; 87040; 87081; 87086; 87400; 87633; 87634; 87651; 87811; 93005; 93225; 93306; 94640; 94660; 94664; 96361; 96365; 96366; 96367; 96375; 97162; 99285; A9270; J0360; J1644; J1885; J1938; J2270; J2405; J2470; J2543; J2916; J3370; J3373; J3475; J3490; J7050; J7120; J7999

== ENCOUNTER 2025-09-08 19:18 | Emergency (ER) | payer MEDICAID, SELFPAY ==
[2025-09-08 19:24] VITALS: BMI 42.9
--- NOTE | 2025-09-08 19:27 | EKG_ITS ---
[facility] Test Date: 2025-09-08 Pat Name: FRIDA TYLER Department: Room: - Gender: Female Technology Sales Representative: : 1970 Requested By: ED Temporary Provider Order Number: [id number] Reading MD: ED Temporary Provider Measurements Intervals [place] Rate: 98 P: 48 OR: 163 QRS: -20 QRSD: 90 T: 30 QT: 339 QTc: 434 Interpretive Statements SINUS RHYTHM LOW QRS VOLTAGE IN PRECORDIAL LEADS [QRS DEFLECTION < 1.0 mV IN CHEST LEADS] POSSIBLE ANTERIOR MYOCARDIAL INFARCTION , OF INDETERMINATE AGE [30 ms Q WAVE IN V3/V4, OR R < 0.2 mV IN V4] Compared to ECG 04/04/2025 17:58:34 No significant changes /store/S0/[id number]/ecg/[id number].pdf
[2025-09-08 19:41] VITALS: BP 140/88; PULSE 98; RESP 20; TEMP 36.8; O2SAT 99
--- NOTE | 2025-09-08 19:49 | XR_ITS ---
EXAMINATION: PA chest single view TECHNIQUE: Upright PA chest single view Date and time: September 08, 2025, 1952 hours INDICATIONS: Chest pain high blood pressure today. FINDINGS: Normal heart size Mild vascular congestion. No pneumonia or pulmonary edema IMPRESSION: Mild vascular congestion
--- NOTE | 2025-09-08 19:50 | PD.EDRME ---
Rapid Medical Screening Exam RME Arrival date/time: 09/08/25 19:18 54F with history of CML (on chemo), HTN, DM, and anxiety presents to ED with 1 day of CP and SOB that radiates to head after finding out her father recently passed. Patient denies URI symptoms and fevers/chills. Patient takes a baby aspirin every day and has taken her dose today. Chief Complaint: Chest Pain Vital signs: Vital Signs Temperature 98.3 F 09/08/25 19:41 Pulse Rate 98 09/08/25 19:41 Respiratory Rate 20 09/08/25 19:41 Blood Pressure 140/88 H 09/08/25 19:41 Pulse Oximetry (%) 99 09/08/25 19:41 Oxygen Delivery Method Room Air 09/08/25 19:41 Exam: Normal Speech. Clear lungs and normal WOB. RRR. Clinical Impression: stress/anxiety reaction vs ACS vs PE vs atypical chest pain
[2025-09-08] MEDS: DIAZEPAM 5 MG TABLET PO (20:29)
[2025-09-08] MEDS: ASPIRIN 81 MG CHEW PO (20:29)
[2025-09-08 20:30] VITALS: PULSE 101
[2025-09-08 20:33] VITALS: BP 141/86; PULSE 97; RESP 18; TEMP 36.8; O2SAT 100
[2025-09-08 20:36] LABS: Basophils # (Auto) 0.0 Thou/mm3 (0.0-0.2); Basophils % (Auto) 0 % (0-2.5); Eosinophils # (Auto) 0.5 Thou/mm3 (0.0-0.5); Eosinophils % (Auto) 8 % (0-10); Hematocrit 30.2 % (36.0-46.0); Hemoglobin 9.7 g/dL (12.0-16.0); Immature Granulocytes Auto 0.02 Thou/mm3 (0.00-0.00); Lymphocytes # (Auto) 1.9 Thou/mm3 (1.0-4.8); Lymphocytes % (Auto) 29 % (10-50); Mean Corpuscular HGB Conc 32.1 g/dl (31.0-37.0); Mean Corpuscular Hemoglobin 31.6 pg (25.0-35.0); Mean Corpuscular Volume 98 fL (80-100); Monocytes # (Auto) 0.5 Thou/mm3 (0.0-0.8); Monocytes % (Auto) 8 % (0-12); Neutrophils # (Auto) 3.6 Thou/mm3 (1.8-7.7); Neutrophils % (Auto) 55 % (37-80); Nucleated Red Blood Cell # 0.00 Thou/mm3 (0.00-0.00); Nucleated Red Blood Cell % 0 /100 WBC (0); Platelet Count 169 Thou/mm3 (140-440); RDW Standard Deviation 54.1 fL (36.4-46.3); Red Blood Count 3.07 Miln/mm3 (4.00-5.20); White Blood Count 6.6 Thou/mm3 (3.6-11.0)
[2025-09-08 20:56] LABS: B-Type Natriuretic Peptide 24 pg/mL (0-100)
[2025-09-08 20:58] LABS: Alanine Aminotransferase 14 U/L (10-49); Albumin, Serum 4.4 gm/dL (3.5-5.0); Albumin/Globulin Ratio 1.4 (1.2-2.2); Alkaline Phosphatase 104 U/L (46-116); Anion Gap 8 (7-16); Aspartate Amino Transferase 23 U/L (0-34); BUN/Creatinine Ratio 11 Ratio (12-20); Bilirubin,Total 1.1 mg/dL (0.3-1.2); Blood Urea Nitrogen 15 mg/dL (9-23); Calcium 9.9 mg/dL (8.3-10.6); Calcium (Corrected) 9.9 mg/dL (8.5-10.1); Carbon Dioxide 27.1 mMol/L (20.0-31.0); Chloride 109 mMol/L (98-107); Creatinine (Component) 1.4 mg/dL (0.6-1.3); Estimated Creatinine Clearance 56.7 mL/min (>60); Globulin 3.1 gm/dL (2.3-3.5); Glucose 113 mg/dL (74-106); Osmolality,Calculated 288 (275-295); Potassium 4.0 mMol/L (3.4-5.1); Sodium 144 mMol/L (136-145); Total Protein 7.5 gm/dL (5.7-8.2); Troponin I < 0.020 ng/mL (0.0-0.045); eGFR 45 See Note
--- NOTE | 2025-09-08 21:08 | PD.EDCHEST ---
ED Chest Pain RME/HPI General Chief Complaint: Chest Pain Stated Complaint: CHEST FEELS HEAVY, PULSE 120, HIGH BP Time Seen by Provider: 09/08/25 20:59 Arrival date/time: 09/08/25 19:18 RME / HPI RME / HPI narrative: 09/08/25 19:18 54F with history of CML (on chemo), HTN, DM, and anxiety presents to ED with 1 day of CP and SOB that radiates to head after finding out her father recently passed. Patient denies URI symptoms and fevers/chills. Patient takes a baby aspirin every day and has taken her dose today. DR. 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 Patient also reports feeling more fatigued than usual. Denies any drug-related allergies. Denies any known metastasis. Also reports recent of her father. Denies any prolonged travel or travel outside of the country. Exam: Normal Speech. Clear lungs and normal WOB. RRR. Impression: stress/anxiety reaction vs ACS vs PE vs atypical chest pain Related Data Home Medications ?Medication ?Instructions ?Recorded ?Confirmed lisinopril 20 mg tablet 20 mg PO BID #0 tabs 03/17/15 03/29/25 aspirin 81 mg tablet,delayed 81 mg PO QDAY ##0 04/17/16 03/29/25 release (Aspir-) metformin 500 mg tablet 250 mg PO HS #0 tabs 04/17/16 03/29/25 (Glucophage) allopurinol 100 mg tablet 200 mg PO QDAY #0 tabs 08/12/16 03/29/25 (Zyloprim) imatinib 400 mg tablet (Gleevec) 400 mg PO QDAY #0 tabs 08/12/16 03/29/25 atorvastatin 20 mg tablet 20 mg PO QDAY 03/29/25 03/29/25 benzonatate 200 mg capsule 200 mg PO .TID PRN 03/29/25 03/29/25 cyclobenzaprine 10 mg tablet 10 mg PO Q12H 03/29/25 03/29/25 ergocalciferol (vitamin D2) 1,250 1,250 mcg PO QWEEK 03/29/25 03/29/25 mcg (50,000 unit) capsule fluoxetine 10 mg capsule 10 mg PO QDAY 03/29/25 03/29/25 fluoxetine 20 mg capsule 20 mg PO QDAY 03/29/25 03/29/25 folic acid 1 mg tablet 1 mg PO QDAY 03/29/25 03/29/25 gabapentin 400 mg capsule 400 mg PO Q12H 03/29/25 03/29/25 metoprolol succinate 100 mg 100 mg PO Q24H 03/29/25 03/29/25 capsule sprinkle, ext. release 24 hr (Kapspargo Sprinkle) Previous Rx's ?Medication ?Instructions ?Recorded amlodipine 5 mg tablet 5 mg PO QDAY #90 tabs 04/05/25 ferrous sulfate 325 mg (65 mg 325 mg PO QOD #90 tabs 04/05/25 iron) tablet fluconazole 200 mg tablet 400 mg (2 x 200 mg) PO QDAY 6 04/05/25 months #360 tabs Allergies Allergy/AdvReac Type Severity Reaction Status Date / Time curry pepper Allergy Mild Rash Verified 09/08/25 19:23 Review of Systems Review of Systems Systems Reviewed: All systems reviewed, normal except as documented Past Medical History Past Medical History NEUROLOGIC: Positive Cerebrovascular Accident and Transient Ischemic Attacks (TIA) (03/12/19 ADM TO HOSPITAL STAY) CARDIAC: Positive Hypercholesterolemia (TAKES MED) and Hypertension RESPIRATORY: Positive Asthma (PNA THIS ADMISSION) and Sleep Apnea GASTROINTESTINAL: Positive Gastrointestinal Disorders, Gall Bladder Disease (REMOVED 1995), Irritable Bowel and Obesity REPRODUCTIVE: Positive Endometriosis and Previous Pregnancies MUSCULOSKELETAL: Positive Musculoskeletal Disorders and Arthritis (LEFT KNEE) ENDOCRINE: Positive Endocrine Disorders and Diabetes Mellitus Type 2 (LAST DAY 03/29/2025) HEMATOLOGIC: Positive Blood Disorders, Anemia and Leukemia (CML) PSYCHO/SOCIAL: Positive Depression and Anxiety OTHER HISTORY: Positive Hospitalization (HOSP FOR TIA), Falls (03/11), Chemotherapy (PILL FORM) and Chicken Pox Family History FAMILY HISTORY: Positive Family Psychiatric Problems (FATHER (ANXIETY)), Family Respiratory Disorders (BROTHER (ASTHMA)), Family Cardiac Disorders (FATHER (HTN)), Family Gastrointestinal Problems (FATHER (ULCER)) and Family Surgery (FATHER,MOTHER) Surgical History SURGICAL: Positive Cardiac Surgery, Abdominal Surgery, Tubal Ligation and Section ED Exam Narrative Physical exam: GEN. APPEARANCE: The patient is alert awake oriented X-3 in no distress, lying down comfortably, chronically ill appearing. Patient has good eye contact. Patient is cooperative. VITALS: All vitals were reviewed and the pulse ox is 100% on room air which is normal according to my interpretation. HEENT: Normocephalic, atraumatic. Pupils are equal and reactive. Oral mucosa is moist. Patent Nares NECK: Supple, nontender, no thyromegaly, no meningismus, no JVD CHEST: Symmetrical, atraumatic, and with equal expansion , Nontender on palpation no deformity and no crepitus. CARDIOVASCULAR: Heart regular rhythm no murmur or gallop rub or extra beats. LUNGS: Clear to auscultation bilaterally with symmetrical chest rise. No laboring tachypnea or wheezing. No intercostal subcostal retraction. No rales and no rhonchi. ABDOMEN: Soft, flat, nontender to palpation, no guarding or rebound tenderness. There are no abnormal masses palpated. Active and normal bowel sounds. EXTREMITIES: Nontender. No edema, no calf tenderness, no warmth. No cyanosis. Patient is able to move all 4 extremities well, with full ROM and good CSM. SKIN: Warm and dry, no jaundice or rashes noted. MUSCULOSKELETAL: No lumbar or midline bony tenderness. There is no CVA tenderness. No paraspinal muscle spasm or tenderness. NEURO: Patient is VACA x 4, Cranial nerves II through XII grossly intact. There is no focal neurologic deficits noted. GCS is 15, PNS and [employer] appear grossly intact. PSYCHIATRIC: Patient is in normal mood and affect. Course Quality Measures none Orders Category Date Time Status CT Screening NOW Care 09/08/25 21:20 Active EKG (ED ONLY) *Do not use* NOW Care 09/08/25 19:[address] angio chest Stat Exams 09/08/25 21:20 Taken EKG (ED Only) Stat Exams 09/08/25 19:27 Draft XR chest 1V portable Stat Exams 09/08/25 19:49 Completed B-Type Natriuretic Peptide Stat Lab 09/08/25 20:26 Completed CBC Stat Lab 09/08/25 20:26 Completed Comprehensive Metabolic Panel Stat Lab 12/17/25 20:26 Completed Troponin I Stat Lab 09/08/25 20:26 Completed Troponin I Stat Lab 09/08/25 22:15 Completed Aspirin Chew Med 09/08/25 19:49 Discontinued 81 mg PO X1 ONE Diazepam [Valium] Med 09/08/25 19:49 Discontinued 5 mg PO X1 ONE Morphine* Inj Med 09/08/25 21:20 Discontinued 2 mg IVP STAT STA Vital Signs Vital signs: Vital Signs Temperature 98.3 F 09/08/25 19:41 Pulse Rate 98 09/08/25 19:41 Respiratory Rate 20 09/08/25 19:41 Blood Pressure 140/88 H 09/08/25 19:41 Pulse Oximetry (%) 99 09/08/25 19:41 Oxygen Delivery Method Room Air 09/08/25 19:41 Chest Pain MDM Narrative MDM Narrative:: Scribe Attestation: Sujatha Rivas, am scribing for and in the presence of Dr. Hawley. Provider Notation: Although this document has been carefully reviewed, there may still be some phonetic and other typographical errors. These errors are purely grammatical due to imperfections in the software program and should not be construed in any way to compromise the substance of the patient's medical care during this visit. Patient is a 54-year-old female with medical history notable for diverticulitis, hypertensive urgency, stroke, pneumonia, hypertension CML and Emergency Department concerns for chest pain. Vital signs and exam as listed. Patient without fever no tachycardia no tachypnea patient is breathing room air. Concern for ACS arrhythmia electrolyte abnormality among others. Prior provider evaluated patient. Ordered labs EKG chest x-ray. Offered medication for symptom relief. Labs with evidence of normocytic anemia hemoglobin 9.7 this is better than patient's baseline. Patient with a creatinine of 1.4, slightly higher than previously. No other evidence of significant metabolic dysfunction, troponin not elevated BNP normal, chest x-ray with evidence of mild vascular congestion. EKG performed today at 1939, notable for sinus rhythm, heart rate 98, normal intervals, nonspecific T wave changes, not a cardiac alert. Repeat troponin elevated, CT angio of the chest without evidence of pulmonary embolism or dissection. Patient does have a cavitary lesion in the right lower lobe measuring 4 x 1.8 cm. Patient has a history of valley fever and she is on fluconazole. On multiple reevaluations patient hemodynamically stable no acute distress, symptoms well-controlled. I expressed my sincerest condolences to the patient for the loss of her father today, I am reassured by her clinical improvement. Will discharge to home with plus return precautions follow-up with her primary care doctor. Patient does not have a urologist and I recommended that she establish care with urologist and that she get a stress test as an outpatient. Close return precautions provided. Patient data External records reviewed:: [facility] previous records (Reviewed prior ED records from 12/22/23. Patient was seen for Muscle strain of left lower extremity.) Clinical information provided by:: patient Social determinants that could affect healthcare access:: none Patient has the following chronic illnesses:: Hypercholesterolemia, Hypertension, Asthma, Sleep Apnea, Gall Bladder Disease, Irritable Bowel, Obesity, Endometriosis, Arthritis, Diabetes Mellitus Type 2, Anemia, Leukemia (CML), Depression and Anxiety How is presenting disease/condition affected by chronic disease/condition?: exacerbated by Evaluation data The following diagnostics were reviewed and interpreted by me:: lab results, radiology exam(s) and EKG tracing(s) (EKG done at 19:39, 98 bpm, normal intervals, non-specific T-wave changes, not a cardiac alert. - Interpreted by Dr. Lucy Hawley.) Lab and/or radiology exams considered but not ordered:: None Interpretation Summary: RADIOLOGY Chest X-Ray: FINDINGS: Normal heart size Mild vascular congestion. No pneumonia or pulmonary edema IMPRESSION: Mild vascular congestion Chest CTA: Findings: There is no filling defect within the pulmonary artery divisions to suggest pulmonary thromboembolism. The mediastinum demonstrates no evidence of mass or lymphadenopathy. The thoracic aorta is unremarkable. There is no pericardial effusion. Cavitated lesion in the right lower lobe measures 4.0 x 1.8 cm. No evidence of pleural effusion or pneumothorax. The osseous structures are unremarkable. The visualized upper abdominal viscera are unremarkable. Impression: No CT evidence of pulmonary thromboembolism. Cavitated lesion in the right lower lobe, differential grossly includes tuberculosis and lung cancer. Medications / Prescriptions Medications or Prescriptions considered but not ordered:: None Medication administrations:: Medication Administration History Discontinued Medications Aspirin (Aspirin 81 Mg Chew) 81 mg PO X1 ONE Stop: 09/08/25 19:50 Last Admin: 09/08/25 20:29 Dose: 81 mg Documented By: ECHO Diazepam (Diazepam 5 Mg Tablet) 5 mg PO X1 ONE Stop: 09/08/25 19:50 Last Admin: 09/08/25 20:29 Dose: 5 mg Documented By: ECHO Morphine Sulfate (Morphine Sulf Inj 4 Mg/Ml Vial) 2 mg IVP STAT STA Stop: 09/08/25 21:21 Last Admin: 09/08/25 22:11 Dose: 2 mg Documented By: PRABHU See above if any Consultations Consultation(s) initiated? (list below): No Diagnosis Chest Pain Differential Diagnosis: pneumothorax, stable angina, unstable angina pectoris, atypical chest pain, st elevation myocardial infarction, costochondritis, chest pain and other (Pulmonary embolism, Radiculopathy) Most likely diagnosis given after review of the tests above:: Chest Pain, Pulmonary Cavity Lesion Admission Indicated Admission indicated?: not indicated Explain why admission is indicated or not indicated:: Patient does not meet admission criteria. Admission Request Was there a request for admission?: No Disposition Plan Disposition Plan: Discharge Discharge Attestation Discharge Attestation: The patient and all family members were given an opportunity to ask questions and understood the discharge instructions. Discharge instructions specifically effects, indications for sooner follow up or return to the emergency department, and the expected course of current diagnosis. Patient condition: Stable Discharge Plan Plan Patient Disposition: HOME (Self Care) Prescriptions/Referrals Prescriptions/Med Rec: No Action lisinopril 20 MG tablet 20 mg PO BID Qty: 0 metformin [Glucophage] 500 MG tablet 250 mg PO HS Qty: 0 aspirin [Aspir-81] 81 mg Tablet,Delayed Release (Dr/Ec) 81 mg PO QDAY Qty: 0 allopurinol [Zyloprim] 100 MG tablet 200 mg PO QDAY Qty: 0 imatinib [Gleevec] 400 MG tablet 400 mg PO QDAY Qty: 0 atorvastatin 20 mg tablet 20 mg PO QDAY Patient Comments: TAKE 1 TABLET BY MOUTH EVERY EVENING FOR CHOLESTEROL (STOP 40MG DOSE) ergocalciferol (vitamin D2) 1,250 mcg (50,000 unit) capsule 1,250 mcg PO QWEEK Patient Comments: TAKE 1 TABLET BY MOUTH ONCE WEEKLY folic acid 1 mg tablet 1 mg PO QDAY Patient Comments: TAKE 1 TABLET BY MOUTH EVERY DAY fluoxetine 10 mg capsule 10 mg PO QDAY Patient Comments: TAKE 1 CAPSULE BY MOUTH ONCE A DAY WITH 20MG DOSE FOR DEPRESSION fluoxetine 20 mg capsule 20 mg PO QDAY Patient Comments: TAKE 1 CAPSULE BY MOUTH EVERY DAY FOR DEPRESSION gabapentin 400 mg capsule 400 mg PO Q12H Patient Comments: TAKE 1 CAPSULE BY MOUTH TWICE A DAY NEEDED NERVE PAIN cyclobenzaprine 10 mg tablet 10 mg PO Q12H Patient Comments: TAKE 1 TABLET BY MOUTH EVERY EVENING NEEDED FOR PAIN benzonatate 200 mg capsule 200 mg PO .TID PRN Patient Comments: TAKE 1 CAPSULE BY MOUTH THREE TIMES A DAY NEEDED FOR COUGH Kapspargo Sprinkle 100 mg capsule,sprinkle,ER 24hr 100 mg PO Q24H Patient Comments: TAKE 1 CAPSULE BY MOUTH EVERY DAY ferrous sulfate 325 mg (65 mg iron) tablet 325 mg PO QOD Qty: 90 0RF fluconazole 200 mg tablet 400 mg PO QDAY 180 Days Qty: 360 0RF amlodipine 5 mg Tablet 5 mg PO QDAY Qty: 90 0RF Referrals: No Primary/Family,Physician [Primary Care Provider] - In 1 week Problem List Clinical Impression: Chest pain, Pulmonary cavitary lesion Patient/Caregiver Discharge Instructions Education Materials: ED Chest Pain, Uncertain Cause Additional Instructions: Your labs that identified that you have anemia your hemoglobin was 9.7 however it is improved from prior testing. Your creatinine was 1.4, which is near your baseline from prior studies. Your cardiac enzyme was not elevated on 2 separate assessments. Your EKG did not show any evidence that you are having a heart attack. The CT scan of your chest did not identify a blood clot in your chest nor other acute intrathoracic pathology. You do have a cavitary lesion, this is likely from your valley fever. I recommend that you continue taking your fluconazole and your other medications as prescribed. It is important that you follow-up with your primary care doctor, request a referral to see a urologist as you will benefit from a stress test. Return immediately if you have any worsening symptoms or new symptoms of concern. We would like to express our sincerest condolences on the passage of your father. We wish you and your family well. Print Language: Georgian Stand Alone Forms: Shira Award Info., Patient Portal Info Letter
--- NOTE | 2025-09-08 21:20 | XR_ITS ---
Examination: CTA chest with intravenous contrast 2-D reconstructions 3-D reconstructions, vascular Date and time of exam: September 09, 2025, 0010 hours INDICATIONS: Tachycardia chest pain elevated blood pressure today CTDI: vol (mGy) 13 DLP: (mGycm) 528 Technique: Multiple axial sections of the thorax have been obtained. 3 mm slice thickness, from below the hemidiaphragms to above the apices of the lungs. Mediastinal and lung density settings have been obtained. 2-D sagittal and coronal reconstructions. 3-D angiographic renderings, 3-D volume renderings, 3D post processing, vascular maximum intensity projections obtained. Contrast administered is 100 cc [id number] intravenous. Low dose protocols were performed. One or more of the following dose reduction techniques were used; automated exposure control, adjustment of the mA and/or KV according to patient size, use of iterative reconstruction technique. Findings: No thoracic aortic aneurysm dilatation or dissection Pulmonary artery segments are not enlarged No pulmonary artery filling defects No paratracheal tracheobronchial or bronchopulmonary adenopathy Bilobed thick walled cavitary lesion 32 mm in the right lower lobe Liver is irregular in contour Spleen is not enlarged Absent gallbladder No pancreatic or adrenal mass Intact osseous structures IMPRESSION: Negative for pulmonary artery emboli 32 mm thick walled cavitary lesion in the right lower lobe, differential would include infectious processes such as tuberculosis, coccidiomycosis, pulmonary neoplasm not excluded
[2025-09-08] MEDS: MORPHINE SULF INJ 4 MG/ML VIAL 2 MG IVP (22:11)
[2025-09-08 22:39] VITALS: BP 123/81; PULSE 85; RESP 18; O2SAT 100
[2025-09-08 23:16] LABS: Troponin I < 0.020 ng/mL (0.0-0.045)
[2025-09-09 00:41] VITALS: BP 135/90; PULSE 85; RESP 18; TEMP 36.9; O2SAT 99
--- NOTE | 2025-09-09 01:35 | PRELIM_ITS ---
CT angiogram of the chest with intravenous contrast (axial sections with sagittal and coronal reformats) September 09, 2025 0010 hours Clinical History: PE Technique:Helical axial sections with sagittal and coronal reformats of the chest were obtained with intravenous contrast. Iterative reconstruction technique was employed to reduce patient radiation exposure. 3D/MIP reconstructed images were also provided. Comparison: None available at the time of this report. Findings: There is no filling defect within the pulmonary artery divisions to suggest pulmonary thromboembolism. The mediastinum demonstrates no evidence of mass or lymphadenopathy. The thoracic aorta is unremarkable. There is no pericardial effusion. Cavitated lesion in the right lower lobe measures 4.0 x 1.8 cm. No evidence of pleural effusion or pneumothorax. The osseous structures are unremarkable. The visualized upper abdominal viscera are unremarkable. Impression: No CT evidence of pulmonary thromboembolism. Cavitated lesion in the right lower lobe, differential grossly includes tuberculosis and lung cancer. Discussion Details: Results verbally communicated to : Dr Kennedy at 01:30 AM 09/09/2025 Report Electronically Signed By: Dutch Phelan 09/09/2025 1:34:25 AM [EST]
[2025-09-09 02:05] VITALS: BP 157/100; PULSE 83; RESP 18; TEMP 36.6; O2SAT 94
== END 2025-09-09 02:08 | disposition home or self-care (01) ==
PROVIDERS: Physician Assistant; Emergency Provider Emergency Medicine
DX: R07.9 Chest pain, unspecified (principal); J98.4 Other disorders of lung; R09.89 Other specified symptoms and signs involving the circulatory and respiratory systems; R94.31 Abnormal electrocardiogram [ECG] [EKG]; E78.00 Pure hypercholesterolemia, unspecified; I10 Essential (primary) hypertension; Z79.82 Long term (current) use of aspirin
CPT/HCPCS: 36415; 71045; 71275; 80053; 83880; 84484; 85025; 93005; 96374; 99284; A4649; J2270; Q9967; A9270